=== PATIENT | female | born 1970 | race Caucasian/White ===

== ENCOUNTER 2021-10-05 06:51 | Outpatient (REF) | payer OTHER, SELFPAY ==
[2021-10-05 06:56] LABS: MANUAL DIFF FLAG NO
[2021-10-05 07:29] LABS: Basophils Percent Auto 0.5 % (0-2); Eosinophils Absolute Auto 0.2 X10*3/uL (0.0-0.4); Eosinophils Percent Auto 2.5 % (0-4); Hematocrit 37.2 % (37.0-47.0); Hemoglobin 11.3 g/dl (12.0-16.0); Imm Gran Abs Auto 0.03 X10*3/uL (0.00-0.03); Imm Gran Pct Auto 0.4 % (0.0-0.4); Lymphocytes Absolute Auto 2.6 X10*3/uL (1.2-4.9); Mean Corpuscular HGB Conc 30.4 g/dl (31.0-35.0); Mean Corpuscular Hemoglobin 19.4 pg (27.0-33.0); Mean Platelet Volume 10.3 fL (9.4-12.3); Monocytes Absolute Auto 0.5 X10*3/uL (0.1-1.2); Monocytes Percent Auto 5.9 % (2-11); Neutrophils Absolute Auto 4.6 x10*3/uL (2.0-8.3); Neutrophils Percent Auto 57.7 % (45-73); Platelet Count 271 X10*3/uL (160-400); Red Blood Count 5.81 X10*6/uL (4.20-5.50); Red Cell Distribution Width 16.1 % (11.0-16.0); White Blood Count 7.9 X10*3/uL (4.8-10.8)
[2021-10-05 07:38] LABS: Alanine Aminotransferase 22 U/L (0-31); Alkaline Phosphatase 73 U/L (39-117); Anion Gap 13 (12-20); Aspartate Amino Transferase 16 U/L (5-31); Bilirubin Total 0.6 mg/dL (0.0-1.0); Blood Urea Nitrogen 19 mg/dL (9-16); Carbon Dioxide 25 mmol/L (22-29); Chloride 105 mmol/L (96-108); Estimated Glomerular Filt Rate > 60; Glucose Random 99 mg/dL (60-115); Sodium 139 mmol/L (135-145); Total Protein 6.4 g/dL (6.5-8.0)
[2021-10-05 08:02] LABS: Free T4 (Free Thyroxine) 0.87 ng/dL (0.71-1.85); Thyroid Stimulating Hormone 0.98 uIU/mL (0.32-4.0)
== END 2021-10-05 06:52 | disposition home or self-care (01) ==
LOC: HO.MMNH1L 06:51
PROVIDERS: Visit Provider Family Medicine
DX: I63.9 Cerebral infarction, unspecified (principal)
CPT/HCPCS: 36415; 80053; 84439; 84443; 85025

== ENCOUNTER → 2022-11-02 15:19 | Outpatient (BNVA) | payer OTHER, SELFPAY | PROVIDERS: Visit Provider Physician Assistant ==

== ENCOUNTER 2022-12-03 10:34 | Outpatient (REF) | payer OTHER, SELFPAY ==
--- NOTE | ~2022-12-03 | XR_ITS ---
EXAMINATION: XR CHEST CLINICAL INFORMATION: Preprocedure. COMPARISON: None available. TECHNIQUE: 2 views of the chest were obtained. FINDINGS: No significant abnormality is noted involving the heart, lungs, mediastinum, bony thorax or soft tissues. XR/XR chest 2V IMPRESSION: No acute disease.
--- NOTE | 2022-12-03 12:31 | ECG_ITS ---
Test Reason : PREOP Blood Pressure : / mmHG Vent. Rate : 092 BPM Atrial Rate : 092 BPM P-R Int : 142 ms QRS Dur : 074 ms QT Int : 358 ms P-R-T Axes : 055 006 043 degrees QTc Int : 442 ms Normal sinus rhythm Normal ECG No previous ECGs available Referred By: Maribel Wakefield Electronically Signed By:ELEAZAR THOMSON
[2022-12-03 12:39] LABS: MANUAL DIFF FLAG NO
[2022-12-03 13:19] LABS: Basophils Absolute Auto 0.1 X10*3/uL (0.0-0.2); Basophils Percent Auto 0.9 % (0-2); Eosinophils Absolute Auto 0.3 X10*3/uL (0.0-0.4); Eosinophils Percent Auto 3.3 % (0-4); Hematocrit 39.2 % (37.0-47.0); Hemoglobin 11.6 g/dl (12.0-16.0); Imm Gran Abs Auto 0.04 X10*3/uL (0.00-0.03); Imm Gran Pct Auto 0.5 % (0.0-0.4); Lymphocytes Absolute Auto 2.2 X10*3/uL (1.2-4.9); Lymphocytes Percent Auto 26.7 % (20-40); Mean Corpuscular HGB Conc 29.6 g/dl (31.0-35.0); Mean Platelet Volume 9.8 fL (9.4-12.3); Monocytes Absolute Auto 0.4 X10*3/uL (0.1-1.2); Monocytes Percent Auto 5.4 % (2-11); Neutrophils Absolute Auto 5.2 x10*3/uL (2.0-8.3); Neutrophils Percent Auto 63.2 % (45-73); Platelet Count 296 X10*3/uL (160-400); Red Blood Count 6.12 X10*6/uL (4.20-5.50); Red Cell Distribution Width 17.4 % (11.0-16.0); White Blood Count 8.2 X10*3/uL (4.8-10.8)
[2022-12-03 13:23] LABS: Mean Corpuscular Volume 64.1 fL (80.0-98.0)
[2022-12-03 13:27] LABS: Estimated Average Glucose 123 mg/dL; Hemoglobin A1c % 5.9 %
[2022-12-03 14:33] LABS: Alanine Aminotransferase 17 U/L (0-31); Albumin Level 4.3 g/dL (3.5-5.0); Alkaline Phosphatase 91 U/L (39-117); Anion Gap 16 (12-20); Aspartate Amino Transferase 18 U/L (5-31); Blood Urea Nitrogen 16 mg/dL (9-16); C Reactive Protein 1.26 mg/dL (< or = 0.50); Calcium 9.4 mg/dL (8.4-10.2); Carbon Dioxide 23 mmol/L (22-29); Chloride 105 mmol/L (96-108); Cholesterol 178 mg/dL; Estimated Glomerular Filt Rate > 60; Glucose Random 103 mg/dL (60-115); HDL Cholesterol 37 mg/dL; Iron 83 mcg/dL (30-160); LDL Cholesterol Calculated 102 mg/dl; Percent Iron Saturation 27 % (15-50); Sodium 140 mmol/L (135-145); Total Iron Binding Capacity 307 mcg/dL (228-428); Total Protein 7.5 g/dL (6.5-8.0); Triglycerides 196 mg/dL; Unsaturated Iron Binding 224 ug/dL
[2022-12-03 14:56] LABS: Folate 10.5 ng/mL (> or = 4.0); Vitamin B12 657 pg/mL (200-900)
[2022-12-03 15:02] LABS: Ferritin 97 ng/mL (10-250); TSH reflex Free T4 1.04 uIU/mL (0.32-4.0); Vitamin D 25-OH Total 17.4 ng/mL (>30)
[2022-12-03 15:44] LABS: Insulin 22 uU/mL (2-29)
[2022-12-05 14:18] LABS: PTHI 247 pg/mL (16-77)
[2022-12-06 06:17] LABS: Zinc 86 mcg/dL (60-130)
[2022-12-08 17:49] LABS: Vitamin A 49 mcg/dL (38-98)
[2022-12-09 12:02] LABS: Vitamin B1 11 nmol/L (8-30)
== END 2022-12-03 10:35 | disposition home or self-care (01) ==
LOC: HO.LAB 10:34
PROVIDERS: Visit Provider Physician Assistant
DX: Z01.818 Encounter for other preprocedural examination (principal); E66.01 Morbid (severe) obesity due to excess calories; Z68.43 Body mass index [BMI] 50.0-59.9, adult; F44.4 Conversion disorder with motor symptom or deficit; G43.409 Hemiplegic migraine, not intractable, without status migrainosus; I63.9 Cerebral infarction, unspecified
CPT/HCPCS: 36415; 71046; 80053; 80061; 82306; 82607; 82728; 82746; 83036; 83525; 83540; 83970; 84425; 84443; 84590; 84630; 85025; 86140; 93005; 99202

== ENCOUNTER 2022-12-25 10:18 | Outpatient (AMB) | payer OTHER, SELFPAY ==
--- NOTE | 2022-12-25 09:58 | MHC.OFFVISWM ---
Intake VS Expanded 12/25/22 10:05 Height 5 ft 3 in Weight 290 lb BMI 51.4 Intake Visit Reasons: VIDEO F/U SWL Allergies No Known Allergies Allergy (Verified 12/03/22 10:44) HPI HPI Comments History of Present Illness Details This is the patients second appt for SWL. Starting weight was 293.1 lbs on 12/03/22. TBWL is 3.1 lbs. Will be in [place] for 4 weeks, returns on January 31. Meal plan: started last week stopped coffee, soda and all carbonated drinks 9am - Whey shake with almond milk 12pm - shake 3pm - Atkins bar or cc or yogurt 6pm - has food scale and measuring chicken and vegetables Exercise plan: LS 1 mile videos every day. Ready to increase to 2 miles Pre op work up completed as follows: SWL classes - , unable to log in appts - Lazara 01/01 appts - 01/04 H pylori - not yet, will schedule fro after her vacation no time to stop PPI now. Labs - mild anemia, vit D defic, PTH elevated CXR and ECG - both normal ULS and UGI - Feb 27 [facility] Surgical History History of bunionectomy Hx of breast reduction, elective Family History Mother Heart attack Father No problems noted. Sister Hypertension Brother No problems noted. Brother No problems noted. Daughter No problems noted. Son No problems noted. Social History Alcohol intake: current Alcohol intake frequency: holidays/special occasions only Patient Tobacco Use Status: Never used Tobacco Assessment & Plan Assessment & Plan (1) Morbid obesity: Code(s): E66.01 - Morbid (severe) obesity due to excess calories Plan: Pt started meal and exercise program last week and has lost 3 lbs so far. Did not make any changes to meal plan. Exercise - now alternate 2 mile with 1 mile LS videos - go to 2 miles daily when able. Will schedule H pylori for late January once she retunrs from vacation and has time to stop PPI. Getting help today with SWL classes. Next appt with me after January 31. Patient is still morbidly obese and is not considered stable at this time. I spent 30 minutes in total speaking with the patient via video conference counseling , reviewing records and charting in patients chart. . (2) GERD (gastroesophageal reflux disease): Code(s): K21.9 - Gastro-esophageal reflux disease without esophagitis (3) CVA (cerebral vascular accident): Code(s): I63.9 - Cerebral infarction, unspecified (4) JOSE on CPAP: Code(s): G47.33 - Obstructive sleep apnea (adult) (pediatric) Telehealth Telehealth Location of provider rendering services: practice address Location of patient: address on file Patient Identification confirmed using: Name, : Yes Telehealth method: video Patient verbally consented to treatment: Yes Patient verbally consented to billing insurance company: Yes Patient informed of any privacy concerns related to visit: Yes Coding Level of Care Code Tele Est Pt Level 4 (40164) Diagnoses Morbid obesity E66.01 GERD (gastroesophageal reflux disease) K21.9 CVA (cerebral vascular accident) I63.9 JOSE on CPAP G47.33
[2022-12-25 10:05] VITALS: BMI 51.4
== END 2022-12-25 10:21 | disposition home or self-care (01) ==
LOC: HO.HBS 10:18
PROVIDERS: Visit Provider Physician Assistant
DX: E66.01 Morbid (severe) obesity due to excess calories (principal); Z68.43 Body mass index [BMI] 50.0-59.9, adult; K21.9 Gastro-esophageal reflux disease without esophagitis; I63.9 Cerebral infarction, unspecified; G47.33 Obstructive sleep apnea (adult) (pediatric)
CPT/HCPCS: 99214

== ENCOUNTER → 2022-12-25 10:18 | Outpatient (BNVA) | payer SELFPAY | PROVIDERS: Visit Provider Physician Assistant ==

== ENCOUNTER 2023-01-01 13:30 | Outpatient (AMB) | payer OTHER, SELFPAY ==
--- NOTE | 2023-01-01 13:43 | MHC.WMTHER ---
Intake Intake Visit Reasons: VIDEO BH Intake Allergies No Known Allergies Allergy (Verified 12/03/22 10:44) [facility] Surgical History History of bunionectomy Hx of breast reduction, elective Family History Mother Heart attack Father No problems noted. Sister Hypertension Brother No problems noted. Brother No problems noted. Daughter No problems noted. Son No problems noted. Social History Alcohol intake: current Alcohol intake frequency: holidays/special occasions only Patient Tobacco Use Status: Never used Tobacco Behavioral Health Assessment Weight Management Therapy Therapy Notes Details Pt is looking to have weight loss surgery to help improve her health and quality of life. Pt stated that she had a massive stroke two years and went from 128lbs to 300lbs while in rehab for 1.5 years. Patient stated that she has had numerous losses resulting in depression. She denied ever being in therapy. Presenting Concerns Referral Source provider Reason for referral weight loss surgery evaluation Precipitating Event obesity Living Situation Current Living Situation Own At risk of losing current housing? No Satisfied with current living situation? Yes Comments Pt lives with her , her 23 year old son, and her 3 year old granddaughter. Food/Weight/Diet Expectations of change weight loss and maintenance History/Relationship with food Due to not being able to walk after her stroke and then her son , she started to turn to food to comfort herself. History/Relationship with weight Pt stated that she had a massive stroke two years and went from 128lbs to 300lbs while in rehab for 1.5 years. She denied any previous weight issues. Social History Family history and relationship Pt stated that her parents when she was young, she took care of her terminally ill sister for 12 years and her brother when he was 23. She also has a nephew she raised as her son who a few days after coming home from the one year ago in an accident. 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 none Education Highest grade completed college Preferred learning style Auditory, Verbal, Written, Learn by doing and Visual Currently enrolled in educational program? No Interested in further educational program? 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 No Financial Situation Describe current financial situation Comfortable Financial assistance? None Service Service? No Medications Is the patient compliant with medications? Yes Does the patient have Irvin Guardian in place? Not applicable Does the patient use complimentary health approaches? No Questionnaires PHQ-9 Over the last 2 weeks, how often have you been bothered by any of the following problems? 1. Little interest or pleasure in doing things: several days 2. Feeling down, depressed, or hopeless: several days 3. Trouble falling or staying asleep, or sleeping too much: nearly every day 4. Feeling tired or having little energy: nearly every day 5. Poor appetite or overeating: more than half the days 6. Feeling bad about yourself - or that you are a failure or have let yourself or your family down: not at all 7. Trouble concentrating on things, such as reading the newspaper or watching television: several days 8. Moving or speaking so slowly that other people could have noticed. Or the opposite - being so fidgety or restless that you have been moving around a lot more than usual: several days 9. Thoughts that you would be better off or of hurting yourself in some way: nearly every day Total score: 15 Source: Developed by Drs. Favian Gee, Gisele Headley, Daron Raymond and colleagues, with an educational slim from [employer]. Binge Eating Scale Group 1 A. I don't feel self-conscious about my wt. or body size when I'm with others. B. I feel concerned about how I look to others, but it normally does not make me fell disappointed with myself C. I do get self-conscious about my appearance and wt. which makes me feel disappointed in myself. D. I feel very self-conscious about my wt. and frequently I feel intense shame and disgust for myself. I try to avoid social contacts because of my self-consciousness. Response Group 1: C Group 2 A. I don't have any difficulty eating slowly in the proper manner. B. Although I seem to gobble down foods, I don't end up feeling stuffed because of eating to much. C. At times, I tend to eat quickly and then, I feel uncomfortably full afterwards. D. I have the habit of bolting down my food, without really chewing it. When this happens I usually feel uncomfortably stuffed because I've eaten to much. Response Group 2: C Group 3 A. I feel capable to control my eating urges when I want to. B. I feel like I have failed to control my eating more than the average person. C. I feel utterly helpless when it comes to feeling in control of my eating urges. D. Because I feel so helpless about controlling my eating I have become very desperate about trying to get control. Response Group 3: B Group 4 A. I don't have the habit of eating when I'm bored. B. I sometimes eat when I'm bored, but often I'm able to get busy and get my mind off food. C. I have a regular habit of eating when I'm bored, but occasionally, I can use some other activity to get my mind off eating. D. I have a strong habit of eating when I'm bored. Nothing seems to help me breath the habit. Response Group 4: A Group 5 A. I'm usually physically hungry when I eat something. B. Occasionally, I eat something on impulse even though I really am not hungry. C. I have the regular habit of eating foods, that I might not really enjoy, to satisfy a hungry feeling even though physically, I don't need the food. D. Although I'm not physically hungry, I get a hungry feeling in my mouth that only seems to be satisfied when I eat a food, like sandwich, that fills my mouth. Sometimes, when I eat the food to satisfy my mouth hunger, I then spit the food out so I won't gain weight. Response Group 5: B Group 6 A. I don't feel any guilt or self-hate after I overeat. B. After I overeat, occasionally I feel guilt or self-hate. C. Almost all the time I experience strong guilt or self-hate after I overeat. Response Group 6: B Group 7 A. I don't lose total control of my eating when dieting even after periods when I overeat. B. Sometimes when I eat a forbidden food on a diet, I feel like I blew it and eat even more. C. Frequently, I have the habit of saying to myself, I've blown it now, why not go all the way, when I overeat on a diet. When that happens I eat more. D. I have a regular habit of starting a strict diets for myself but I break the diets by going on an eating binge. My life seems to be either a feast or famine. Response Group 7: B Group 8 A. I rarely eat so much food that I feel uncomfortably stuffed afterwards. B. Usually about once a month, I each such a quantity of food, I end up feeling very stuffed. C. I have regular periods during the month when I eat large amounts of food, either at mealtime or at snacks. D. I eat so much food that I regularly feel quite uncomfortable after eating and sometimes a bit nauseous. Response Group 8: A Group 9 A. My level of calorie intake does not go up very high or go down very low on a regular basis. B. Sometimes after I overeat, I will try to reduce my caloric intake to almost nothing to compensate for the excess calories I've eaten. C. I have a regular habit of overeating during the night. It seems that my routine is not to be hungry in the morning but overeat in the evening. D. In my adult years, I have had week-long periods where I practically starve myself. This follows periods when I overeat. It seems I live a life of either feast or famine. Response Group 9: B Group 10 A. I usually am able to stop eating when I want to. I know when enough is enough. B. Every so often, I experience a compulsion to eat which I can't seem to control. C. Frequently, I experience strong urges to eat which I seem unable to control, but at other times I can control my eating urges. D. I feel incapable of controlling urges to eat. I have a fear of not being able to stop eating voluntarily. Response Group 10: B Group 11 A. I don't have any problem stopping eating when I feel full. B. I usually can stop eating when I feel full but occasionally overeat leaving me feeling uncomfortably stuffed. C. I have a problem stopping eating once I start and usually I feel uncomfortably stuffed after I eat a meal. D. Because I have a problem not being able to stop eating when I want, I sometimes have to induce vomiting to relieve my stuffed feeling. Response Group 11: A Group 12 A. I seem to eat just as much when I'm with others, Family social gatherings as when I'm by myself. B. Sometimes, when I'm with other persons, I don't eat as much as I want to eat because I'm self-conscious about my eating. C. Frequently, I eat only a small amount of food when others are present, because I'm very embarrassed about my eating. D. I feel so ashamed about overeating that I pick times to overeat when I know no one will see me. I feel like a closet eater. Response Group 12: A Group 13 A. I eat three meals a day with only an occasional between meal snack. B. I eat 3 meals a day, but I also normally snack between meals. C. When I am snacking heavily, I get in the habit of skipping regular meals. D. There are regular periods when I seem to be continually eating, with no planned meals. Response Group 13: C Group 14 A. I don't think much about trying to control unwanted eating urges. B. At least some of the time, I feel my thoughts are pre-occupied with trying to control my eating urges. C. I feel that frequently I spend much time thinking about how much I ate or about trying not to eat anymore. D. It seems to me that most of my waking hours are pre-occupied by thoughts about eating or not eating. I feel like I'm constantly struggling not to eat. Response Group 14: C Group 15 A. I don't think about food a great deal. B. I have strong craving for food but they last only for brief periods of time. C. I have days when I can't seem to think about anything else but food. D. Most of my days seem to be pre-occupied with thoughts about food. I feel like I live to eat. Response Group 15: A Group 16 A. I usually know whether or not I'm physically hungry. I take the right portion of food to satisfy me. B. Occasionally, I feel uncertain about knowing whether or not I'm physically hungry. A these times it's hard to know how much food I should take to satisfy me. C. Even though I might know how many calories I should eat, I don't have any idea what is a normal amount of food for me. Response Group 16: C Binge Eating Score: 16 Score less than 17 Minimal Risk Score between 18-26 Moderate Risk Score between 27-46 High Risk Assessment & Plan Assessment & Plan (1) Adjustment disorder, unspecified: Code(s): F43.20 - Adjustment disorder, unspecified (2) Morbid obesity: Code(s): E66.01 - Morbid (severe) obesity due to excess calories Plan PHQ-9 not accurate. patient will complete again at next appt. Evaluation today was not completed and she will be seen again. Telehealth Telehealth Location of provider rendering services: other Location of patient: other Patient Identification confirmed using: Name, : Yes Telehealth method: video Patient verbally consented to treatment: Yes Patient verbally consented to billing insurance company: Yes Patient informed of any privacy concerns related to visit: Yes Minutes spent on Phone/Video with Pt.: 30 Coding Level of Care Code Tele Psy Diag Eval (28441) Diagnoses Adjustment disorder, unspecified F43.20 Morbid obesity E66.01 Time Spent (min) 30
== END 2023-01-01 14:21 | disposition home or self-care (01) ==
LOC: HO.HBST 14:03
PROVIDERS: Visit Provider Counselor Mental Health
DX: F43.20 Adjustment disorder, unspecified (principal); E66.01 Morbid (severe) obesity due to excess calories
CPT/HCPCS: 90791

== ENCOUNTER → 2023-01-01 13:30 | Outpatient (BNVA) | payer OTHER, SELFPAY | PROVIDERS: Visit Provider Counselor Mental Health ==

== ENCOUNTER 2023-02-20 13:00 | Outpatient (AMB) | payer OTHER, SELFPAY ==
--- NOTE | 2023-02-20 13:03 | MHC.OFFVISWM ---
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 She restarted her meal plan this week after her vacation. 7am - shake 12 pm - shake 3:30 pm - yogurt or cc 6-7 pm - steak or chicken with vegetables Exercise - LS 1 mile - no t a good routine yet Pre op work up completed as follows: SWL classes -? , unable to log in- will start now BH appts? - Lazara 01/01, needs to schedule next appt -- ? RD appts - 01/04, rescheduled to 03/12 H pylori - not yet, will schedule for after her vacation no time to stop PPI now. Never stopped PPI, will stop on 02/26 for h pylori on 03/12. Labs - mild anemia, vit D defic, PTH elevated CXR and ECG - both normal ULS and UGI - Mar 12 [facility] Surgical History History of bunionectomy Hx of breast reduction, elective Family History Mother Heart attack Father No problems noted. Sister Hypertension Brother No problems noted. Brother No problems noted. Daughter No problems noted. Son No problems noted. Social History Alcohol intake: current Alcohol intake frequency: holidays/special occasions only Patient Tobacco Use Status: Never used Tobacco Assessment & Plan Assessment & Plan (1) Morbid obesity: Code(s): E66.01 - Morbid (severe) obesity due to excess calories Plan: Pt had initial weight loss of 9 lbs and then none since then. Has restarted her meal plan now - no changes made. Will now start LS 1 mile videos 5d/ week and then increase to 2 miles. H pylori for 03/12 Will start SWL classes now and complete by 9/26 Will schedule follow up with Lazara cantu. All upcoming appts reviewed. Patient is still morbidly obese and is not considered stable at this time. I spent 26 minutes in total speaking with the patient via video conference counseling , reviewing records and charting in patients chart. . (2) CVA (cerebral vascular accident): Code(s): I63.9 - Cerebral infarction, unspecified (3) JOSE on CPAP: Code(s): G47.33 - Obstructive sleep apnea (adult) (pediatric) (4) GERD (gastroesophageal reflux disease): Code(s): K21.9 - Gastro-esophageal reflux disease without esophagitis Telehealth Telehealth Location of provider rendering services: practice address Location of patient: address on file Patient Identification confirmed using: Name, : Yes Telehealth method: video Patient verbally consented to treatment: Yes Patient verbally consented to billing insurance company: Yes Patient informed of any privacy concerns related to visit: Yes Coding Level of Care Code Tele Est Pt Level 4 (65191) Diagnoses Morbid obesity E66.01 CVA (cerebral vascular accident) I63.9 JOSE on CPAP G47.33 GERD (gastroesophageal reflux disease) K21.9
[2023-02-20 13:06] VITALS: BMI 50.0
== END 2023-02-20 13:23 | disposition home or self-care (01) ==
LOC: HO.HBS 13:21
PROVIDERS: Visit Provider Physician Assistant
DX: E66.01 Morbid (severe) obesity due to excess calories (principal); Z68.43 Body mass index [BMI] 50.0-59.9, adult; I63.9 Cerebral infarction, unspecified; G47.33 Obstructive sleep apnea (adult) (pediatric); K21.9 Gastro-esophageal reflux disease without esophagitis
CPT/HCPCS: 99213

== ENCOUNTER → 2023-02-20 13:00 | Outpatient (BNVA) | payer OTHER, SELFPAY | PROVIDERS: Visit Provider Physician Assistant ==

== ENCOUNTER 2023-03-12 15:40 | Outpatient (AMB) | payer OTHER, SELFPAY ==
--- NOTE | 2023-03-12 15:27 | MHC.AMNUTRGE ---
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 When she had the first episode of emesis, was drinking chocolate shakes , now is turned off by them by association. Patient missed her radiology appointment today, she has been in bed for several days. 8-9am shake 12pm shake 3pm protein bar or yogurt, cottage cheese dinner salad with chicken or red meat or fish recognizes her main barriers: skipping meals and lack of planning Exercise: none; due to stomach bug. prior to that was doing mile 1-[address] has [employer] fitness membership and is interested in getting a personal injury paralegal Previous weight loss methods attempted tried to eat only once per day for years and gained weight Dietary counseling reduction Who buys your food self Who prepares/cooks your food self Meal frequency regular: dinner (7-9pm ) and never: breakfast (coffee) and lunch Lifestyle Eating out 1-3 times/week Food frequency Fruit: never and Vegetables: never Diagnosis Nutrition problem #1 overweight/obesity As related to (etiology) #1 excess energy intake and physical inactivity As evidenced by (sign/symptom) #1 high BMI Monitoring/Goals Nutrition problem monitoring total energy intake, level of knowledge/skill, total PRO intake, total CHO intake and weight Outcome progress progressing Learning/Education Readiness to learn good Stages of change action Educational materials provided Yes Most Recent Diabetes Results: No Data to Display [facility] Surgical History History of bunionectomy Hx of breast reduction, elective Family History Mother Heart attack Father No problems noted. Sister Hypertension Brother No problems noted. Brother No problems noted. Daughter No problems noted. Son No problems noted. Social History Alcohol intake: current Alcohol intake frequency: holidays/special occasions only Patient Tobacco Use Status: Never used Tobacco Assessment & Plan Assessment & Plan (1) Morbid obesity: Code(s): E66.01 - Morbid (severe) obesity due to excess calories Patient Instructions: Did not make any changes to her nutrition plan today, congratulated her on her weight loss. Encouraged getting a gym membership and beginning with a personal injury paralegal. She will complete online classes. I sent educational information via email as well as contact numbers to reschedule some appointments, reminded of upcoming appointment in office with Maribel. Patient to follow-up with me 04/16 at 03:30 Telehealth Telehealth Location of provider rendering services: practice address Location of patient: address on file Patient Identification confirmed using: Name, : Yes Telehealth method: video Patient verbally consented to treatment: Yes Patient verbally consented to billing insurance company: Yes Patient informed of any privacy concerns related to visit: Yes Minutes spent on Phone/Video with Pt.: 25 Coding Level of Care Code Nutr Indiv Intake (71099) Diagnoses Morbid obesity E66.01 Time Spent (min) 25
[2023-03-12 15:36] VITALS: BMI 47.5
== END 2023-03-12 15:43 | disposition home or self-care (01) ==
LOC: HO.HBS 15:40
PROVIDERS: Visit Provider Dietitian, Registered
DX: E66.01 Morbid (severe) obesity due to excess calories (principal)

== ENCOUNTER → 2023-04-16 15:44 | Outpatient (BNVA) | payer OTHER, SELFPAY | PROVIDERS: Visit Provider Dietitian, Registered | DX: E66.9 Obesity, unspecified (principal) | CPT/HCPCS: 97803 ==

== ENCOUNTER 2023-04-17 16:29 | Outpatient (AMB) | payer OTHER, SELFPAY ==
--- NOTE | 2023-04-17 16:28 | A.OFFVIS_ITS ---
Intake Intake Visit Reasons: VIDEO F/U SWL Allergies No Known Allergies Allergy (Verified 12/03/22 10:44) HPI HPI Comments History of Present Illness Details 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 Meal plan 6:45 am - 7:30 - protein shake 12:30 - shake 3 pm - often misses this MR 5 - 6pm - 8 oz protein and 8 oz vegetab le. Some day s skips dinner and a third shake. Exercise - 2-3 d/week. bike (? calories) and treadmill - speed 3.0, incline 1 - 30 - 40 minutes Pre op work up completed as follows: [facility] classes -? 01/22, appts? - Lazara 01/01, needs to schedule next appt -- ? RD appts - 01/04, rescheduled to 03/12, cleared H pylori - not yet, will schedule for after her vacation no time to stop PPI now. Never stopped PPI, will stop on 02/26 for h pylori on 03/12- now rescheduled to 04/22 Labs - mild anemia, vit D defic, PTH elevated CXR and ECG - both normal ULS and UGI - 05/15 and 2023 [facility] Surgical History History of bunionectomy Hx of breast reduction, elective Family History Mother Heart attack Father No problems noted. Sister Hypertension Brother No problems noted. Brother No problems noted. Daughter No problems noted. Son No problems noted. Social History Alcohol intake: current Alcohol intake frequency: holidays/special occasions only Patient Tobacco Use Status: Never used Tobacco Assessment & Plan Assessment & Plan (1) Morbid obesity: Code(s): E66.01 - Morbid (severe) obesity due to excess calories Plan: Pt does not have a weight today- will text me her weight. I will make changes to her meal and exercise plans once I know her weight. Is not interested in bariatric surgery until next calendar year. Exercise - treadmill speed 3.0 - , incline 1 -5 for 300 calories (10cal/minute) and bike for 100 caloreis - at lest 4 d/week. All up coming appts reviewed - will schedule follow up with Lazara cantu. Next appt 3 weeks with me. Encouraged weekly weight texts. Patient is still morbidly obese and is not considered stable at this time. I spent 30 minutes in total speaking with the patient via video conference counseling , reviewing records and charting in patients chart. . (2) CVA (cerebral vascular accident): Code(s): I63.9 - Cerebral infarction, unspecified (3) JOSE on CPAP: Code(s): G47.33 - Obstructive sleep apnea (adult) (pediatric) Telehealth Telehealth Location of provider rendering services: practice address Location of patient: address on file Patient Identification confirmed using: Name, : Yes Telehealth method: video Patient verbally consented to treatment: Yes Patient verbally consented to billing insurance company: Yes Patient informed of any privacy concerns related to visit: Yes Coding Level of Care Code Tele Est Pt Level 4 (86162) Diagnoses Morbid obesity E66.01 CVA (cerebral vascular accident) I63.9 JOSE on CPAP G47.33
== END 2023-04-17 17:05 | disposition home or self-care (01) ==
LOC: HO.HBS 16:29
PROVIDERS: Visit Provider Physician Assistant
DX: E66.01 Morbid (severe) obesity due to excess calories (principal); I63.9 Cerebral infarction, unspecified; G47.33 Obstructive sleep apnea (adult) (pediatric)
CPT/HCPCS: 99214

== ENCOUNTER → 2023-04-17 16:29 | Outpatient (BNVA) | payer OTHER, SELFPAY | PROVIDERS: Visit Provider Physician Assistant ==

== ENCOUNTER 2023-05-06 14:14 | Outpatient (AMB) | payer OTHER, SELFPAY ==
--- NOTE | 2023-05-06 14:41 | A.OFFVIS_ITS ---
Intake Vital Signs 05/06/23 14:42 Height 5 ft 3 in Weight 267 lb BMI 47.3 BP 128/76 Blood Pressure Location Rt brachial Position Sitting Respiration 16 Pulse 96 Pulse Source Pulse Oximeter Pulse Oximetry (%) 94 Oxygen Delivery Method Room Air Intake Visit Reasons: I-BULKER: Cerebral Infarction/Conversion disorder . . Intake Note: Pt presents for new pt evaluation s/p stroke in 2020 as well as hemiplegic migraines. She reports she gets these migraines about 5 times per year. The last time she had one was in January. Looper Fixer Required: No Allergies No Known Allergies Allergy (Verified 05/06/23 14:42) Medication List - Last Reconciled 05/06/23 by Sanna Yanes MD amitriptyline 75 mg PO BEDTIME cholecalciferol (vitamin D3) 50 mcg PO DAILY CPAP (CPAP Machine/Device) As directed divalproex (Depakote) 750 mg PO ONCE lorazepam 0.5 mg PO BEDTIME PRN pantoprazole 40 mg PO DAILY PRN ropinirole ER 2 mg PO BEDTIME sumatriptan succinate 50 mg PO Q2-4H PRN HPI HPI Comments History of Present Illness Details 52Y/O female comes for neurological eval uation. she was seeing Dr.Melch sherwood for hemiplegic migraines, CVA in 2020. she was also seen at [facility] for abnormal gait following her CVA . Her migraines are well controlled with depakote ER 750mg qam , amitripltyline 75mg qhs , sumatriptan as needed for regular migraines. she has hemiplegic migraines - 4-5times a year. she has weakness left side with drooling - usually goes to ER. when she had her stroke - she started with migraine and while she was in the hospitals he had CVA and was treated with TPA, was admitted in ICU and was in rehab . she has mild left hemiparesis, when she is tired she has some speech issues gait issues and weakness. Her regular migraines are 7-8/month and takes lorazepam and goes to bed. she was diagnosed with JOSE in 2020 when she had stroke.s he has a CPAP - but does not us eith consistently due to claustrophobia. [facility], [facility] Surgical History History of carpal tunnel surgery Hx of breast reduction, elective History of bunionectomy Family History Mother Heart attack Father No problems noted. Sister Hypertension Brother No problems noted. Brother No problems noted. Daughter No problems noted. Son No problems noted. Social History Household Members: Spouse and Family Housing: House Alcohol intake: current Alcohol intake frequency: holidays/special occasions only Patient Tobacco Use Status: Never used Tobacco Review of Systems Const Reports fatigue and Reports weight gain ENT Reports dizziness Musc Reports arthralgias Neuro Reports dizziness and Reports memory loss Psych Denies anxiety, Reports depression and Reports memory loss Endo Reports fatigue Physical Exam Vital Signs: Last Vital Signs Pulse 96 05/06/23 14:42 Resp 16 05/06/23 14:42 BP 128/76 05/06/23 14:42 Pulse Ox 94 05/06/23 14:42 Oxygen Delivery Method Room Air 05/06/23 14:42 BMI result Body Mass Index 47.3 Const General: cooperative and comfortable Nutritional Appearance: obese Orientation/consciousness: patient oriented x3 Eyes Pupils: Equal, round and reactive pupils present Neuro Other: mallampatti grade 4 left facial weakness Hoarse voice General: patient oriented x3, tone normal, moves all extremities and no focal motor deficits Cranial nerves: Yes Facial sensation intact/muscles of mastication intact, Yes Equal, round and reactive pupils present, Yes Bilaterally intact EOM present, Yes Nystagmus not present and Yes Midline tongue present Cognition (Neuro): normal cognition Gait exam (Neuro): Normal gait present Motor exam (neuro): 5/5 motor strength present throughout Deep tendon reflexes (DTR's): Right triceps reflex intensity grade: 1+, Left triceps reflex intensity grade: 1+, Rt Biceps (C5, C6): 1+, Left biceps reflex intensity grade: 1+, Right brachioradialis reflex intensity grade: 1+, Left brachioradialis reflex intensity grade: 1+, Right patellar reflex intensity grade: 1+ and Left patellar reflex intensity grade: 1+ Coordination: [id number] test normal Assessment & Plan Assessment & Plan (1) Hemiplegic migraine: Comment: unclear if she had a genetic test Code(s): G43.409 - Hemiplegic migraine, not intractable, without status migrainosus (2) JOSE on CPAP: Code(s): G47.33 - Obstructive sleep apnea (adult) (pediatric) (3) CVA (cerebral vascular accident): Code(s): I63.9 - Cerebral infarction, unspecified Plan Sleep study and MRI, neuro, lab reports from PCP Start aspirin 81mg qd will check her labs for LDL levels and consider starting a statin STOP SUMATRIPTAN as it can worsen hemiplegic migraine Suggested excedrin migraine continue amitriptyline 75mg qhs and depakote ER 750mg qam Continue CPAP_ [facility] -will send pres for new mask with [facility] Medications: New aspirin (Adult Aspirin Regimen) 81 mg PO DAILY 30 tabs 8RF Coding Level of Care Code New Pt Level 4 (56879) Diagnoses Hemiplegic migraine G43.409 JOSE on CPAP G47.33 CVA (cerebral vascular accident) I63.9
[2023-05-06 14:42] VITALS: BP 128/76; PULSE 96; RESP 16; O2SAT 94; BMI 47.3
== END 2023-05-06 15:24 | disposition home or self-care (01) ==
PROVIDERS: Visit Provider Psychiatry & Neurology Neurology
DX: I69.354 Hemiplegia and hemiparesis following cerebral infarction affecting left non-dominant side (principal); G43.409 Hemiplegic migraine, not intractable, without status migrainosus; G47.33 Obstructive sleep apnea (adult) (pediatric)
CPT/HCPCS: 99204

== ENCOUNTER → 2023-05-06 14:14 | Outpatient (BNVA) | payer OTHER, SELFPAY | PROVIDERS: Visit Provider Psychiatry & Neurology Neurology | DX: G43.409 Hemiplegic migraine, not intractable, without status migrainosus (principal); I69.398 Other sequelae of cerebral infarction; I69.354 Hemiplegia and hemiparesis following cerebral infarction affecting left non-dominant side; R26.89 Other abnormalities of gait and mobility; E66.9 Obesity, unspecified; G47.33 Obstructive sleep apnea (adult) (pediatric); Z68.42 Body mass index [BMI] 45.0-49.9, adult; Z99.89 Dependence on other enabling machines and devices; Z79.899 Other long term (current) drug therapy | CPT/HCPCS: 99202 ==

== ENCOUNTER 2023-06-06 15:30 | Outpatient (AMB) | payer OTHER, SELFPAY ==
--- NOTE | 2023-06-06 13:50 | MHC.OFFVISWM ---
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 Sent me text earlier in the week with weight of 261.0 lbs. TBWL 32.2 or 11%. Was not well for 2 weeks - went off meal and exercise during that time - gained 2.5 lbs. Meal plan: 6:30am - Whey shake 30 grams with water 12:30 - same shake 3:30 pm - maltese yogurt 6:30 pm - 12 forks vegetables and 12 forks fish or chicken Exercise - gym 3-4 d/ week - treadmill speed 5.0, incline 1 - 4, martinez 410 calories - 35 minutes. Pre op work up completed as follows: [facility] classes -? 01/22, appts? - [facility] 01/01, needs to schedule next appt -- ?has still not had follow up RD appts - 01/04, rescheduled to 03/12, cleared H pylori - not yet, Never stopped PPI, will stop on 02/26 for h pylori on 03/12- now rescheduled to 04/22 - not done Labs - mild anemia, vit D defic, PTH elevated CXR and ECG - both normal ULS - missed appt on 05/15 UGI - 2023 [facility] Surgical History History of carpal tunnel surgery Hx of breast reduction, elective History of bunionectomy Family History Mother Heart attack Father No problems noted. Sister Hypertension Brother No problems noted. Brother No problems noted. Daughter No problems noted. Son No problems noted. Social History Household Members: Spouse and Family Housing: House Alcohol intake: current Alcohol intake frequency: holidays/special occasions only Comment: occasional Patient Tobacco Use Status: Never used Tobacco Assessment & Plan Assessment & Plan (1) Morbid obesity: Code(s): E66.01 - Morbid (severe) obesity due to excess calories Plan: Pt has had excellent progress but still needs to complete some of her pre op work up. Meal plan - only change is switch bar for yogurt in mid afternoon. Exercise - Must do at least 4 d/week - altrenate her present work out with speed of 3.0 - inclien 1-7 for same amount of calories burned. H pylori tomorrow. Appt made for followup with Lazara Pt will reschedule her ULS. Continue to send me weekly weights and will have next appt with me in 3 weeks. Patient is still morbidly obese and is not considered stable at this time. I spent 30 minutes in total speaking with the patient via video conference counseling , reviewing records and charting in patients chart. . (2) CVA (cerebral vascular accident): Code(s): I63.9 - Cerebral infarction, unspecified Plan: no changes (3) JOSE on CPAP: Code(s): G47.33 - Obstructive sleep apnea (adult) (pediatric) Plan: continue CPAP (4) GERD (gastroesophageal reflux disease): Code(s): K21.9 - Gastro-esophageal reflux disease without esophagitis Plan: h pylori tomorrow Telehealth Telehealth Location of provider rendering services: practice address Location of patient: address on file Patient Identification confirmed using: Name, : Yes Telehealth method: video Patient verbally consented to treatment: Yes Patient verbally consented to billing insurance company: Yes Patient informed of any privacy concerns related to visit: Yes Coding Level of Care Code Tele Est Pt Level 4 (82480) Diagnoses Morbid obesity E66.01 CVA (cerebral vascular accident) I63.9 JOSE on CPAP G47.33 GERD (gastroesophageal reflux disease) K21.9
[2023-06-06 15:42] VITALS: BMI 46.1
== END 2023-06-06 15:56 | disposition home or self-care (01) ==
LOC: HO.HBS 15:38
PROVIDERS: Visit Provider Physician Assistant
DX: E66.01 Morbid (severe) obesity due to excess calories (principal); I63.9 Cerebral infarction, unspecified; G47.33 Obstructive sleep apnea (adult) (pediatric); K21.9 Gastro-esophageal reflux disease without esophagitis
CPT/HCPCS: 99214

== ENCOUNTER → 2023-06-06 15:30 | Outpatient (BNVA) | payer OTHER, SELFPAY | PROVIDERS: Visit Provider Physician Assistant ==

== ENCOUNTER → 2023-06-07 07:52 | Outpatient (BNVA) | payer OTHER, SELFPAY | PROVIDERS: Visit Provider Physician Assistant | DX: Z11.0 Encounter for screening for intestinal infectious diseases (principal) | CPT/HCPCS: 99211 ==

== ENCOUNTER 2023-06-07 15:21 | Outpatient (REF) | payer OTHER, SELFPAY ==
[2023-06-13 11:46] LABS: H Pylori Breath Test Negative (Negative)
== END 2023-06-07 15:22 | disposition home or self-care (01) ==
LOC: HO.LNP 15:21
PROVIDERS: Visit Provider Physician Assistant
DX: Z01.818 Encounter for other preprocedural examination (principal); E66.01 Morbid (severe) obesity due to excess calories; I63.9 Cerebral infarction, unspecified; G43.409 Hemiplegic migraine, not intractable, without status migrainosus; F44.4 Conversion disorder with motor symptom or deficit
CPT/HCPCS: 83013

== ENCOUNTER 2023-06-24 16:08 | Outpatient (AMB) | payer OTHER, SELFPAY ==
--- NOTE | 2023-06-24 13:08 | MHC.OFFVISWM ---
Intake VS Expanded 06/24/23 16:04 Height 5 ft 3 in Weight 252 lb BMI 44.6 Intake Visit Reasons: TV F/U SWL Allergies No Known Allergies Allergy (Verified 05/06/23 14:42) Medication List - Last Reconciled 06/24/23 by Maribel Wakefield PA-C amitriptyline 75 mg PO BEDTIME aspirin (Adult Aspirin Regimen) 81 mg PO DAILY cholecalciferol (vitamin D3) 50 mcg PO DAILY CPAP (CPAP Machine/Device) As directed divalproex (Depakote) 750 mg PO ONCE lorazepam 0.5 mg PO BEDTIME PRN pantoprazole 40 mg PO DAILY PRN ropinirole ER 2 mg PO BEDTIME sumatriptan succinate 50 mg PO Q2-4H PRN HPI HPI Comments History of Present Illness Details [facility] followup, [employer] weight of 293.2 lbs, TBWL is 41.2 lbs or 14%. Now sleeping much better. Would like to schedule her surgery the week of Aug 05 - . Meal plan 7am - Whey powder mixed with water - over 45 minutes 12:30 - same shake 3pm - skips this MR 6 pm - 12 forks each protein and vegetables 4d/week - treadmill - speed 3.0,incline 1-6 - 350 - 400 calories (35 minutes). Then bikes x 20 minutes casually. = total 500 calories Pre op work up completed as follows: [facility] classes -? 01/22, appts? - Lazara 01/01, next appt -- 06/25/23 appts - 01/04, rescheduled to 03/12, cleared H pylori - Never stopped PPI, will stop on 02/26 for h pylori on 03/12- now rescheduled to 04/22 - done 06/07 - Negative Labs - mild anemia, vit D defic, PTH elevated CXR and ECG - both normal ULS - missed appt on 05/15, now 07/18/23 UGI - 2023 [facility] Surgical History History of carpal tunnel surgery Hx of breast reduction, elective History of bunionectomy Family History Mother Heart attack Father No problems noted. Sister Hypertension Brother No problems noted. Brother No problems noted. Daughter No problems noted. Son No problems noted. Social History Household Members: Spouse and Family Housing: House Alcohol intake: current Alcohol intake frequency: holidays/special occasions only Comment: occasional Patient Tobacco Use Status: Never used Tobacco Assessment & Plan Assessment & Plan (1) Morbid obesity: Code(s): E66.01 - Morbid (severe) obesity due to excess calories Plan: Pt has 14% TBWL but still needs her UGI and ULS completed, they were rescheduled due to illness. All appt dates reviewed with her. She will continue her meal plan. Increase her exercise to make sure she martinez at least 500 calories 4 d/ week. Will have appt with me after UGI - if all well will schedule with Dr Rhonda proctor in July so that we can schedule her surgery during her July break. Patient is still morbidly obese and is not considered stable at this time. I spent 20 minutes in total speaking with the patient via video conference counseling , reviewing records and charting in patients chart. . Telehealth Telehealth Location of provider rendering services: practice address Location of patient: address on file Patient Identification confirmed using: Name, : Yes Telehealth method: video Patient verbally consented to treatment: Yes Patient verbally consented to billing insurance company: Yes Patient informed of any privacy concerns related to visit: Yes Coding Level of Care Code Tele Est Pt Level 3 (64090) Diagnoses Morbid obesity E66.01
[2023-06-24 16:04] VITALS: BMI 44.6
== END 2023-06-24 16:21 | disposition home or self-care (01) ==
LOC: HO.HBS 16:08
PROVIDERS: Visit Provider Physician Assistant
DX: E66.01 Morbid (severe) obesity due to excess calories (principal)
CPT/HCPCS: 99213

== ENCOUNTER → 2023-06-24 16:08 | Outpatient (BNVA) | payer OTHER, SELFPAY | PROVIDERS: Visit Provider Physician Assistant ==

== ENCOUNTER 2023-06-25 15:56 | Outpatient (AMB) | payer OTHER, SELFPAY ==
--- NOTE | 2023-06-25 15:36 | MHC.WMTHER ---
Intake Intake Visit Reasons: VIDEO F/U SWL Allergies No Known Allergies Allergy (Verified 05/06/23 14:42) [facility] Surgical History History of carpal tunnel surgery Hx of breast reduction, elective History of bunionectomy Family History Mother Heart attack Father No problems noted. Sister Hypertension Brother No problems noted. Brother No problems noted. Daughter No problems noted. Son No problems noted. Social History Household Members: Spouse and Family Housing: House Alcohol intake: current Alcohol intake frequency: holidays/special occasions only Comment: occasional Patient Tobacco Use Status: Never used Tobacco Behavioral Health Assessment Weight Management Therapy Therapy Notes Details Patient reported that she has been doing very well, feels better from the 40lbs loss. No issues currently. Does have a history of depression due to tragic losses in her life. Pt is looking to have weight loss surgery to help improve her health and quality of life. Pt stated that she had a massive stroke two years and went from 128lbs to 300lbs while in rehab for 1.5 years. Patient stated that she has had numerous losses resulting in depression. She denied ever being in therapy. Presenting Concerns Referral Source provider Reason for referral weight loss surgery evaluation Precipitating Event obesity Living Situation Current Living Situation Own At risk of losing current housing? No Satisfied with current living situation? Yes Comments Pt lives with her , her 23 year old son, and her 3 year old granddaughter. Food/Weight/Diet Expectations of change weight loss and maintenance History/Relationship with food Due to not being able to walk after her stroke and then her son , she started to turn to food to comfort herself. History/Relationship with weight Pt stated that she had a massive stroke two years and went from 128lbs to 300lbs while in rehab for 1.5 years. She denied any previous weight issues. History/Relationship with dieting WW Binge Eating Do you frequently eat large amounts of food in short periods of time, not feeling physically hungry? No Do you feel out of control when you eat a large amount of food in a short period of time? No Do you eat large amounts of food rapidly and typically alone? No Night Eating Do you wake up at least once during the night to eat? No If you wake up in the night, do you find that it is necessary to eat something in order to fall back asleep? No Do you have little or no appetite in the morning and feel very hungry in the evening, often overeating between dinner and when you go to bed? No Social History Family history and relationship Pt stated that her parents when she was young, she took care of her terminally ill sister for 12 years and her brother when he was 23. She also has a nephew she raised as her son who a few days after coming home from the one year ago in an accident. Parental/Familial kinder teacher obligations none known Developmental history and status no issues reported Social support , adult children, best friend Legal Involvement and History Current or historical involvement with the legal system? none Education Highest grade completed college Preferred learning style Auditory, Verbal, Written, Learn by doing and Visual Currently enrolled in educational program? No Interested in further educational program? 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 No Meaningful activities spending time with her children and grandchildren. Financial Situation Describe current financial situation Comfortable Financial assistance? None Service Service? No Mental Health and Addiction Treatment Current/Past substance abuse? No Current/Past addictive behavior concerns? No Medical and Physical Health Summary Physical exam in the last year? Yes Pain Screening Current pain? Yes Pain in the last few months? Yes Medications Is the patient compliant with medications? Yes Does the patient have Irvin Guardian in place? Not applicable Does the patient use complimentary health approaches? No Trauma/Abuse History History of trauma? Yes Questionnaires PHQ-9 Over the last 2 weeks, how often have you been bothered by any of the following problems? 1. Little interest or pleasure in doing things: not at all 2. Feeling down, depressed, or hopeless: not at all 3. Trouble falling or staying asleep, or sleeping too much: not at all 4. Feeling tired or having little energy: several days 5. Poor appetite or overeating: not at all 6. Feeling bad about yourself - or that you are a failure or have let yourself or your family down: not at all 7. Trouble concentrating on things, such as reading the newspaper or watching television: not at all 8. Moving or speaking so slowly that other people could have noticed. Or the opposite - being so fidgety or restless that you have been moving around a lot more than usual: not at all 9. Thoughts that you would be better off or of hurting yourself in some way: not at all Total score: 1 Source: Developed by Drs. Favian Gee, Gisele Headley, Daron Raymond and colleagues, with an educational slim from [employer]. Assessment & Plan Assessment & Plan (1) History of depression: Code(s): Z86.59 - Personal history of other mental and behavioral disorders (2) Morbid obesity: Code(s): E66.01 - Morbid (severe) obesity due to excess calories Plan Patient has done well in the program. She has suffered many losses in recent years resulting in depression. Initial PHQ-9 was high and indicated suicide however patient stated that is not accurate and has never had these thoughts. Although she has a history of depression, currently she reports being well. 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 Patient is cleared for surgery when ready. She is appropriate for group support post surgery. Telehealth Telehealth Location of provider rendering services: other Location of patient: other Patient Identification confirmed using: Name, : Yes Telehealth method: voice only Patient verbally consented to treatment: Yes Patient verbally consented to billing insurance company: Yes Patient informed of any privacy concerns related to visit: Yes Minutes spent on Phone/Video with Pt.: 30 Coding Level of Care Code Tele Psytx 30 mins (37329) Diagnoses History of depression Z86.59 Morbid obesity E66.01 Time Spent (min) 30
== END 2023-06-25 17:00 ==
PROVIDERS: Visit Provider Counselor Mental Health
DX: Z86.59 Personal history of other mental and behavioral disorders (principal); E66.01 Morbid (severe) obesity due to excess calories
CPT/HCPCS: 90832

== ENCOUNTER → 2023-06-25 15:56 | Outpatient (BNVA) | payer OTHER, SELFPAY | PROVIDERS: Visit Provider Counselor Mental Health | DX: Z86.59 Personal history of other mental and behavioral disorders (principal); E66.01 Morbid (severe) obesity due to excess calories ==

== ENCOUNTER 2023-07-02 09:35 | Outpatient (REF) | payer OTHER, SELFPAY ==
--- NOTE | ~2023-07-02 | FL_ITS ---
EXAMINATION: XR FLUOROSCOPY UPPER GI WITH AIR CLINICAL INFORMATION: Preop evaluation prior to bariatric surgery COMPARISON: None TECHNIQUE: Fluoroscopic air contrast upper GI examination was performed utilizing standard techniques with thin and thick barium and effervescent granules. Numerous spot images were obtained. FINDINGS: Lateral cine images of the oropharynx and hypopharynx demonstrate normal swallow mechanism with normal epiglottic inversion and soft palate elevation. No tracheal penetration, glottic or subglottic aspiration identified. No nasopharyngeal reflux present. Hypopharyngeal structures appear normal without evidence of mass or diverticulum. There was no significant cricopharyngeal achalasia. Dual and single contrast images of the esophagus demonstrate normal caliber, contour, and mucosal pattern. No evidence of stricture, mass, or ulcerations identified. Esophageal peristalsis was normal and the primary phase, with mild nonpropulsive tertiary contractions. No evidence of hiatus hernia identified. No significant gastroesophageal reflux was seen during the course of the examination and on reflux views. Dual contrast and single contrast images of the stomach demonstrated normal contour and mucosal pattern without evidence of mass, ulceration, or other abnormality. Contrast freely passed into the gastric antrum and duodenal bulb without delay. Single and air-contrast images of the duodenal bulb demonstrate no abnormality. The duodenal sweep has a normal appearance, course, and mucosal fold appearance. The imaged proximal jejunum has a normal fold pattern and caliber. FLUOROSCOPY TIME: 3 minutes 4 seconds Number of Spot Images: 13 Number of Cine: 10 DOSE AREA PRODUCT: 2765 uGy-m2 (microgray-meter squared) FL/FL upper GI w air IMPRESSION: 1. Minimal esophageal dysmotility consisting of nonpropulsive mild tertiary contractions. 2. Otherwise, normal upper GI series This procedure was performed by Stephan Davis PA-C, and supervised by Dr. Lau
== END 2023-07-02 09:36 | disposition home or self-care (01) ==
LOC: HO.XRAY 09:35
PROVIDERS: Visit Provider Physician Assistant
DX: Z01.818 Encounter for other preprocedural examination (principal); E66.01 Morbid (severe) obesity due to excess calories; I63.9 Cerebral infarction, unspecified; G43.409 Hemiplegic migraine, not intractable, without status migrainosus; F44.4 Conversion disorder with motor symptom or deficit
CPT/HCPCS: 74246; 97802

== ENCOUNTER → 2023-07-02 09:37 | Outpatient (BNV) | payer OTHER, SELFPAY | PROVIDERS: Visit Provider Radiology Diagnostic Radiology | DX: Z01.818 Encounter for other preprocedural examination (principal) | CPT/HCPCS: 74246 ==

== ENCOUNTER 2023-07-08 14:30 | Outpatient (AMB) | payer OTHER, SELFPAY ==
--- NOTE | 2023-07-08 13:21 | MHC.OFFVISWM ---
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 Now sl eeping much better . Would like to sc hedule her surgery the week of Jul 18 - . Meal plan 7am - Whey powd er mixed with wate r - over 45 minute s 12:30 - same sha ke 5 pm - 12 forks each protein and vegetables 4d/we ek - treadmill - s peed 3.0,incline 1 -6 - also bikes of r 20 minutes. 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 SWL classes - ? 01/22, BH appts? - Laz[place] 01/01, nex t appt -- 06/25/23, cleared RD appts - 01/04, rescheduled to 03/12, cleared H pylori - Never s topped PPI, will s top on 02/26 for h pylori on 03/12- no w rescheduled to 06/22 - done 06/07 - Negative Labs - m ild anemia, vit D defic, PTH elevate d CXR and ECG - lorenza th normal ULS - mi ssed appt on 05/15 , now 07/18/23 UGI - teritary esophag eal contractions, otherwise normal PFSH Surgical History History of carpal tunnel surgery Hx of breast reduction, elective History of bunionectomy Family History Mother Heart attack Father No problems noted. Sister Hypertension Brother No problems noted. Brother No problems noted. Daughter No problems noted. Son No problems noted. Social History Household Members: Spouse and Family Housing: House Alcohol intake: current Alcohol intake frequency: holidays/special occasions only Comment: occasional Patient Tobacco Use Status: Never used Tobacco Assessment & Plan Assessment & Plan (1) Morbid obesity: Code(s): E66.01 - Morbid (severe) obesity due to excess calories Plan: Pt has done great with 46.2 lbs TBWL, 15.75%. Pre operative work up has been completed except for ULS on 07/18/23, she has a surgical consult scheduled with Dr Ellis on 07/22 and I will ask Beverley to start her authorization process because she is hoping to have surgery the week of Aug 05 during her break from school. (2) JOSE on CPAP: Code(s): G47.33 - Obstructive sleep apnea (adult) (pediatric) Plan: Not using anymore with her present weight loss. (3) CVA (cerebral vascular accident): Comment: August 2019 Code(s): I63.9 - Cerebral infarction, unspecified Plan: No need for anticoagulation Plan see above Telehealth Telehealth Location of provider rendering services: practice address Location of patient: address on file Patient Identification confirmed using: Name, : Yes Telehealth method: video Patient verbally consented to treatment: Yes Patient verbally consented to billing insurance company: Yes Patient informed of any privacy concerns related to visit: Yes Coding Level of Care Code Tele Est Pt Level 3 (25781) Diagnoses Morbid obesity E66.01 JOSE on CPAP G47.33 CVA (cerebral vascular accident) I63.9
== END 2023-07-08 14:45 | disposition home or self-care (01) ==
LOC: HO.HBS 14:34
PROVIDERS: Visit Provider Physician Assistant
DX: E66.01 Morbid (severe) obesity due to excess calories (principal); G47.33 Obstructive sleep apnea (adult) (pediatric); I63.9 Cerebral infarction, unspecified
CPT/HCPCS: 99213

== ENCOUNTER → 2023-07-08 14:30 | Outpatient (BNVA) | payer OTHER, SELFPAY | PROVIDERS: Visit Provider Physician Assistant ==

== ENCOUNTER 2023-07-18 08:04 | Outpatient (REF) | payer OTHER, SELFPAY ==
--- NOTE | ~2023-07-18 | US_ITS ---
EXAMINATION: US COMPLETE ABDOMEN WITH LIVER ELASTOGRAPHY CLINICAL INFORMATION: Obesity. COMPARISON: None available. TECHNIQUE: Real-time imaging of the abdominal viscera. Noninvasive ultrasound liver fibrosis assessment is performed using Russell ElastPQ point quantification shear wave elastography (2D-SWE) with a C5-2 MHz transducer. Multiple elastography samples are obtained. FINDINGS: PANCREAS: Limited. The visualized pancreatic head and body are normal in appearance. The remainder of the pancreas is obscured from visualization by the overlying bowel gas. ABDOMINAL AORTA: The proximal, middle, and distal aortic segments are normal in caliber. INFERIOR VENA CAVA: Visualized portions are normal. LIVER: There is normal contour and echogenicity. No focal lesion or intrahepatic biliary duct dilatation. The right lobe measures 19.0 cm in length. The left lobe measures 13.0 cm in length. Portal flow is towards the liver (hepatopetal). Shear wave liver elastography median stiffness is 1.69 m/s (reference: normal median stiffness is 1.3 m/s or less). IQR/median stiffness to assess sampling precision is 0.13 (reference: good quality data set is IQR/median stiffness of 0.15 or less). GALLBLADDER: Normal. The gallbladder is physiologically distended without evidence of stones, sludge, polyps, wall thickening or pericholecystic fluid. COMMON BILE DUCT: Normal in caliber measuring 0.3 cm in diameter. RIGHT KIDNEY: Normal. No hydronephrosis. No renal calculi or focal parenchymal lesions. The kidney measures 11.2 cm in maximum dimension. LEFT KIDNEY: Normal. No hydronephrosis. No renal calculi or focal parenchymal lesions. The kidney measures 11.3 cm in maximum dimension. SPLEEN: Normal. The spleen measures 10.1 cm in maximum dimension. FREE FLUID: None. US/US abdomen comp w elastography IMPRESSION: 1. There is hepatomegaly. 2. Liver elastography: In the absence of other known clinical signs, measurements rule out compensated advanced chronic liver disease. If there are known clinical signs, further testing may be needed for confirmation. 3. Technically limited ultrasound examination of the pancreas. REFERENCE: Society of Radiologists in Ultrasound Liver Stiffness Thresholds (2020): LIVER STIFFNESS THRESHOLDS: *Liver Stiffness equal or less than 1.3 m/s: High probability of being normal. *Liver Stiffness less than 1.7 m/s: In the absence of other known clinical signs, rules out compensated advanced chronic liver disease. *Liver Stiffness 1.7-2.1 m/s: Suggestive of compensated advanced chronic liver disease but need further test for confirmation. *Liver Stiffness over 2.1 m/s: Rules in compensated advanced chronic liver disease. *Liver Stiffness over 2.4 m/s: Suggestive of clinically significant portal hypertension. QUALITY OF DATA SET: *IQR/Median value equal or less than 0.15 implies a quality data set. *IQR/Median value over 0.15 implies a poor quality data set. SIGNIFICANT CHANGE FROM PRIOR EXAM: Significant change if liver stiffness measurement is 10% or greater from prior exam. OTHER CONSIDERATIONS: The stage of liver fibrosis may be overestimated in the setting of acute hepatitis, liver inflammation, elevated liver function tests, hepatic vascular congestion, obstructive cholestasis, non-fasting state, and infiltrative diseases such as amyloidosis and lymphoma. In some patients with NAFLD, the liver stiffness thresholds for compensated advanced chronic liver disease may be lower. In causes other than viral hepatitis and NAFLD, liver stiffness thresholds are not well established.
== END 2023-07-18 08:05 | disposition home or self-care (01) ==
LOC: HO.US 08:04
PROVIDERS: Visit Provider Physician Assistant
DX: Z01.818 Encounter for other preprocedural examination (principal); E66.01 Morbid (severe) obesity due to excess calories; I63.9 Cerebral infarction, unspecified
CPT/HCPCS: 76700; 76981

== ENCOUNTER 2023-07-22 08:10 | Outpatient (AMB) | payer OTHER, SELFPAY ==
--- NOTE | 2023-07-22 14:13 | A.OFFVIS_ITS ---
Intake VS Expanded 07/22/23 14:31 Height 5 ft 3 in Weight 245 lb 8 oz BMI 43.5 Body Fat % 47 Body Fat Mass 115.5 Fat Free Mass 130.2 Visceral Fat Rating 15 Body Water % 38.7 Body Water Mass 95.1 Intake Visit Reasons: TV Consult/Pre Op LSG 08/06/23 Allergies No Known Allergies Allergy (Verified 07/22/23 14:14) Medication List - Last Reconciled 07/22/23 by Blayne Garcia MD amitriptyline 75 mg PO BEDTIME cholecalciferol (vitamin D3) 50 mcg PO DAILY CPAP (CPAP Machine/Device) As directed divalproex (Depakote) 500 mg PO DAILY lorazepam 0.5 mg PO BEDTIME PRN ropinirole ER 2 mg PO BEDTIME HPI TV Consult/Pre Op LSG 08/06/23 HPI Details Start time: 1.58pm, End time: 2.38pm ?I spent 35 minutes speaking with the patient on the phone plus an additional 5 minutes reviewing and updating records for a total of 40 minutes HPI Comments History of Present Illness Details Overall weight loss: 47.3 lbs, or 16.14% TBWL Is doing 2 Premier protein shakes (1.5 scoop in 8oz water), and one meal (12 forks of protein and 12 forks of salad or vegetables) Exercise: Gym x4/week doing the bile and stair master for 500 calories ON LICENSE OF [facility] Medical History (Updated 07/22/23 @ 14:18 by Blayne Garcia MD) Basilar migraine Hemiplegic migraine Anemia Syncope Nocturnal hypoxemia Sleep apnea Right carpal tunnel syndrome Left carpal tunnel syndrome Restless leg syndrome GERD (gastroesophageal reflux disease) Depression Anxiety Radiculopathy Prediabetes Surgical History (Updated 07/22/23 @ 11:01 by Bambi Blackmon RN) Hx of tonsillectomy History of carpal tunnel surgery Hx of breast reduction, elective History of bunionectomy Family History Mother Heart attack Father No problems noted. Sister Hypertension Brother No problems noted. Brother No problems noted. Daughter No problems noted. Son No problems noted. Social History Household Members: Spouse and Family Housing: House Are you a primary manager progressive care to a significant other at home: No Do you presently have visiting nurse or other home services: No Alcohol intake: current Alcohol intake frequency: does not drink Comment: occasional Patient Tobacco Use Status: Never used Tobacco Assessment & Plan Assessment & Plan (1) Morbid obesity: Code(s): E66.01 - Morbid (severe) obesity due to excess calories Plan: 1. Plan for lap sleeve gastrectomy including upper GI endoscopy. All tests has been completed and reviewed and the patient is cleared for the surgery. ?If diaphragmatic or ventral hernias are present at time of surgery, these will be repaired laparoscopically as well. 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 I emphasized the importance of close follow-up, adherence to instructions and good communication. So far she has proven to be an excellent communicator and very compliant with all our directions accomplishing a great weight loss. I believe that she is an excellent candidate and she is ready. 2. Preop prescriptions were provided and explained the purpose of each one. Need to be purchased preop. Start Pantoprazole now as you get it from the pharmacy, 1 pill per day. Sucralfate and Zofran are for after surgery as needed. 3. Bowel prep: please do 7 packets ?of Miralax mixing each one with a an 8oz glass of water, crystal light, gatorade zero, or propel ?on 08/04/23 and the same amount on 08/05/23. The Miralax you begin with one packet at a time in 8oz water or crystal light, gatorade zero, or propel ?as early in the day as you can and you do them back to back until you finish them. Continue the protein shakes during? the bowel prep. 4. Needs to purchase 1oz medicine cups . 5. Needs to purchase Children's liquid Tylenol for postop pain control. 6. Avoid aspirin, motrin, Advil, Aleve, Ibuprofen, Naproxyn. Tylenol is OK. 7. She needs to purchase the Celebrate 4:1 protein shakes from the hospital's gift shop. 8. Will do basic preop blood work-up any day between Saturday07/29/23 and Saturday08/02/23 fasting for 12 hours and is scheduled to see the Anesthesiologist prior to the day of surgery. 9. Importance of adherence to postop folllow-up and recommendations was underscored and she understands that. 10. Stop food and bars as of Saturday07/27/23 and continue with 4 Premier protein shakes (ONE scoop EACH in 8oz water or almond milk) at 7am-9am, 10am-1 2pm, 1pm-3pm, 4pm-6pm and one more Premier protein shake with TWO scoops in 8oz of almond milk or water at 7pm-9pm 11. No soups, broths or V8 12. The patient's?medical?history has been reviewed and they are considered low risk for post op DVT and therefore DVT prophylaxis is not considered necessary. Travel after surgery was reviewed. The patient has not disclosed any travel plans during the first 30 days after surgery and they have been advised that within the first 30 days after surgery any bus, plane, train or car travel over 2 hours in duration is contraindicated due to the possibility of developing blood clots from immobility. Any travel, needs to include periods of ambulation of 10 minutes in duration every 2 hours.? Patient was instructed to discuss any plans for travel during this period with their bariatric surgeon.? 13. Use your CPAP daily and bring it to the hospital with your mask 14. Please take at the day of surgery the following medications: NONE 15. Stop any control pills and don't use them for one month after surgery 16. Absolutely no smoking or vaping, or marijuana until the surgery and for at least the first 4 weeks. Only nicotine patches are allowed. 17. Send me weight measurements on and then on the day of surgery before you go to the hospital. 18. Avoid any steroids by mouth for any reason. Let me know if someone prescribes them to you 19. These instructions supersede anything else you read in the handbook, anything you watched in videos or classes or you were told by any other provider. If there is any conflict, you follow the above instructions and nothing else. Orders: Orders Comprehensive Met. Panel Today E66.01 - Morbid (severe) obesity due to excess calories Prothrombin Time INR Today E66.01 - Morbid (severe) obesity due to excess calories C Reactive Protein Today E66.01 - Morbid (severe) obesity due to excess calories Hemoglobin A1c Today E66.01 - Morbid (severe) obesity due to excess calories TSH reflex Free T4 Today E66.01 - Morbid (severe) obesity due to excess calories Type and Screen Today E66.01 - Morbid (severe) obesity due to excess calories Partial Thromboplastin Time Today E66.01 - Morbid (severe) obesity due to excess calories Lipid Panel Today E66.01 - Morbid (severe) obesity due to excess calories Complete Blood Count Auto Diff Today E66.01 - Morbid (severe) obesity due to excess calories Insulin Today E66.01 - Morbid (severe) obesity due to excess calories Medications: New pantoprazole 40 mg PO DAILY 90 tabs 0RF K21.9 - Gastro-esophageal reflux disease without esophagitis sucralfate 10 mL PO BID 600 mL 0RF K21.9 - Gastro-esophageal reflux disease without esophagitis ondansetron Only take one every 12 hours as needed if you have nausea 4 mg PO Q12H 20 tabs 0RF nausea and vomiting R11.0 - Nausea polyethylene glycol 3350 (Miralax) Mix each packet with 8oz of water, Crystal light, or Gatorade zero, or Propel and do 7 packets on 08/04/23 and another 7 packets on 24 17 grams PO DAILY 14 ea 0RF Z01.818 - Encounter for other preprocedural examination Telehealth Telehealth Location of provider rendering services: practice address Location of patient: address on file Patient Identification confirmed using: Name, : Yes Telehealth method: voice only Patient verbally consented to treatment: Yes Patient verbally consented to billing insurance company: Yes Patient informed of any privacy concerns related to visit: Yes Minutes spent on Phone/Video with Pt.: 40 Coding Level of Care Code Tele Est Pt Level 4 (66212) Diagnoses Morbid obesity E66.01 Time Spent (min) 40
[2023-07-22 14:31] VITALS: BMI 43.5
== END 2023-07-22 14:38 | disposition home or self-care (01) ==
PROVIDERS: Visit Provider Surgery
DX: E66.01 Morbid (severe) obesity due to excess calories (principal); Z68.41 Body mass index [BMI] 40.0-44.9, adult
CPT/HCPCS: 99214

== ENCOUNTER → 2023-07-22 08:10 | Outpatient (BNVA) | payer OTHER, SELFPAY | PROVIDERS: Visit Provider Surgery ==

== ENCOUNTER 2023-08-01 07:01 | Outpatient (REF) | payer OTHER, SELFPAY ==
[2023-08-01 07:28] LABS: MANUAL DIFF FLAG NO
[2023-08-01 08:00] LABS: Basophils Percent Auto 0.5 % (0-2); Eosinophils Absolute Auto 0.1 X10*3/uL (0.0-0.4); Eosinophils Percent Auto 1.7 % (0-4); Hematocrit 38.7 % (37.0-47.0); Hemoglobin 11.8 g/dl (12.0-16.0); Imm Gran Abs Auto 0.02 X10*3/uL (0.00-0.03); Imm Gran Pct Auto 0.3 % (0.0-0.4); Lymphocytes Absolute Auto 2.1 X10*3/uL (1.2-4.9); Lymphocytes Percent Auto 26.6 % (20-40); Mean Corpuscular HGB Conc 30.5 g/dl (31.0-35.0); Mean Corpuscular Hemoglobin 18.7 pg (27.0-33.0); Mean Corpuscular Volume 61.4 fL (80.0-98.0); Mean Platelet Volume 10.5 fL (9.4-12.3); Monocytes Absolute Auto 0.4 X10*3/uL (0.1-1.2); Monocytes Percent Auto 5.1 % (2-11); Neutrophils Absolute Auto 5.2 x10*3/uL (2.0-8.3); Neutrophils Percent Auto 65.8 % (45-73); Platelet Count 260 X10*3/uL (160-400); Red Cell Distribution Width 17.1 % (11.0-16.0); White Blood Count 7.9 X10*3/uL (4.8-10.8)
[2023-08-01 08:08] LABS: Estimated Average Glucose 105 mg/dL; Hemoglobin A1c % 5.3 % (<6.0)
[2023-08-01 08:15] LABS: Alanine Aminotransferase 10 U/L (0-31); Albumin Level 4.1 g/dL (3.5-5.0); Alkaline Phosphatase 73 U/L (39-117); Anion Gap 13 (12-20); Aspartate Amino Transferase 11 U/L (5-31); Bilirubin Total 0.9 mg/dL (0.0-1.0); Blood Urea Nitrogen 24 mg/dL (9-16); Calcium 9.5 mg/dL (8.4-10.2); Carbon Dioxide 28 mmol/L (22-29); Chloride 105 mmol/L (96-108); Cholesterol 148 mg/dL (<200); Estimated Glomerular Filt Rate > 60; Glucose Random 105 mg/dL (60-115); HDL Cholesterol 25 mg/dL (>40); LDL Cholesterol Calculated 95 mg/dL (<100); Potassium 3.9 mmol/L (3.3-5.1); Sodium 142 mmol/L (135-145); Total Protein 7.2 g/dL (6.5-8.0); Triglycerides 142 mg/dL (<150)
[2023-08-01 08:30] LABS: Insulin 18 uU/mL (2-29); TSH reflex Free T4 0.78 uIU/mL (0.32-4.0)
[2023-08-01 08:51] LABS: Prothrombin Time 11.9 SEC (11.1-13.3)
[2023-08-01 08:54] LABS: Partial Thromboplastin Time 32.3 SEC (26.0-36.8)
== END 2023-08-01 07:02 | disposition home or self-care (01) ==
LOC: HO.LAB 07:01
PROVIDERS: Visit Provider Surgery
DX: E66.01 Morbid (severe) obesity due to excess calories (principal)
CPT/HCPCS: 36415; 80053; 80061; 83036; 83525; 84443; 85025; 85610; 85730; 86140

== ENCOUNTER 2023-08-06 05:57 | Inpatient (IN) | payer OTHER, SELFPAY ==
[2023-07-22 13:44] VITALS: BMI 42.0
[2023-08-06] VITALS (20 sets, daily range): BP systolic 113–146; BP diastolic 63–92; PULSE 69–93; RESP 10–16; TEMP 36–36.6; O2SAT 94–100; BMI 41.9
[2023-08-06] MEDS: Lactated Ringers 1,000 ML 999 ML IV (06:38)
[2023-08-06] MEDS: Aprepitant 32 MG/4.4 ML VIAL IVPUSH (06:39)
--- NOTE | 2023-08-06 07:16 | HO.ANESPROP2 ---
HPI - Anesthesia Eval Consult details Narrative: 52 yo female patient for EGD, Laparoscopic sleeve gastrectomy, possible diaphragmatic hernia repair, possible ventral hernia repair, possible open PMFSH Active Problems Active Problems: All Active Problems (Updated 08/06/23 @ 07:14 by Ivania Macias MD) History of depression (Acute) Adjustment disorder, unspecified (Acute) GERD (gastroesophageal reflux disease) (Acute) Pre-op evaluation (Acute) Functional neurological symptom disorder with abnormal movement (Acute) JOSE on CPAP (Acute) Hemiplegic migraine (Acute) CVA (cerebral vascular accident) (Acute) Morbid obesity (Acute) BMI 41.9 Restless leg syndrome (Acute) Past Medical History Medical History CVA (cerebral vascular accident) Basilar migraine Hemiplegic migraine Anemia Syncope Nocturnal hypoxemia Sleep apnea Right carpal tunnel syndrome Left carpal tunnel syndrome Restless leg syndrome GERD (gastroesophageal reflux disease) Depression Anxiety Radiculopathy Prediabetes Family History Family History Mother Heart attack Father No problems noted. Sister Hypertension Brother No problems noted. Brother No problems noted. Daughter No problems noted. Son No problems noted. Family history of problems with anesthesia: No Surgical History Surgical History Hx of tonsillectomy History of carpal tunnel surgery Hx of breast reduction, elective History of bunionectomy History of Problems with Anesthesia: No Social History Social History Household Members: Spouse and Family Housing: House Are you a primary housekeeper child care to a significant other at home: No Do you presently have visiting nurse or other home services: No Alcohol intake: current Alcohol intake frequency: does not drink Comment: occasional Patient Tobacco Use Status: Never used Tobacco Have you been hit, kicked, punched, or otherwise hurt by someone within the past year? If so, by whom?: No Advance Directives: No Advance Directives Information Provided: No Advance Directives on File: No Recently lost weight without trying: No Eating poorly because of decreased appetite: No Nutrition Risks: No Nutritional Risk Patient : No : No Poor oral hygiene: No Meds Allergies Allergy/AdvReac Type Severity Reaction Status Date / Time No Known Allergies Allergy Verified 07/22/23 14:14 Active Medications: Current Medications Lactated Ringer's (Lr) 1,000 mls @ 999 mls/hr IV .Q1H1M RHONDA Stop: 08/06/23 08:00 Last Admin: 08/06/23 06:38 Dose: 999 mls/hr Home Medications Medication Instructions Recorded Confirmed Last Taken Type CPAP (CPAP Machine/Device) 11/02/22 07/22/23 Unknown History amitriptyline 75 mg tablet 75 mg PO BEDTIME 11/02/22 07/22/23 08/04/23 History divalproex 500 mg tablet,delayed 500 mg PO DAILY 11/02/22 07/22/23 08/05/23 History release (Depakote) lorazepam 0.5 mg tablet 0.5 mg PO BEDTIME PRN Anxiety 11/02/22 07/22/23 Unknown History ropinirole 2 mg tablet,extended 2 mg PO BEDTIME 11/02/22 07/22/23 08/04/23 History release 24 hr Exam Height,Weight and Vital Signs: Height 5 ft 4 in Weight 110.847 kg Last Vital Signs Temp 97.7 F 08/06/23 06:22 Pulse 89 08/06/23 06:22 Resp 16 08/06/23 06:22 BP 113/63 08/06/23 06:22 Pulse Ox 95 08/06/23 06:22 O2 Del Method Room Air 08/06/23 06:22 Pertinent Lab Results Pertinent Lab Results: Laboratory Tests 08/01/23 07:16 Blood Type A Negative Antibody Screen NEGATIVE Airway Mallampati Class: II TM Dist: >3cm Neck ROM: Full Loose/Missing/Broken Teeth: No (Denies broken, loose, missing teeth) Heart: RRR Lungs: CTAB Assessment and Plan Assessment Anesthesia Assessment: Anesthesia Plan Discussed and Chart Reviewed Final Anesthetic Review Family History of Problems with Anesthesia: No History of Problems with Anesthesia: No NPO: Yes ASA Class: III Final Preanesthetic Review: No Changes in Pt Med Stat, Meds/Allgs Chart Reviewed, Consent Obtained/Reviewed and Anes Risks/Benef Reviewed Patient Risk: Intermediate Procedure Risk: Intermediate Assessment/Block/Sedation in SS: Assess/Block/Sedation-SS Anesthetic Plan Anesthetic Plan: GA Disposition: Standard PACU and Inp. Admit - Standard Bed
--- NOTE | 2023-08-06 07:40 | MHC.SHP ---
Pre-Procedural Eval Section A - 24 Hr Update-Section A only Date of Service: 08/06/23 The patient is an INPATIENT: No The patient has been examined within 24 hours of the surgical procedure. The History & Physical has been completed within 30 days and I have reviewed it.: Yes Section B - Complete if H&P > 30 days Chief Complaint: Morbid obesity Relevant Family History (Specify if Yes): No Relevant Social History: None Present Medications: None Medical History: No relevant PMH History of Previous Operations: No relevant previous surgery Allergies: Allergies Allergy/AdvReac Type Severity Reaction Status Date / Time No Known Allergies Allergy Verified 07/22/23 14:14 Review of Systems Sugical H&P ROS: Negative: Constitution, Cardiovascular, Respiratory, Neurological, Psychiatric, Hem-Onc, Allergic/Immunologic, Gastrointestinal, Genitourinary, Musculoskeletal, Integumentary, Endocrine and Eyes/Ears/Nose/Throat Exam Surgical H&P Exam: Normal: HEENT, Normal: Heart, Normal: Lungs, Normal: Extremities, Normal: Abdomen, Normal: Skin and Normal: Neurological Plan Diagnosis/Plan: Unchanged I have reviewed the history and physical and performed a pertinent physical examination on my patient. No changes have occurred unless specified. Time Spent With Patient Time: Total time managing care of this patient today ____ minutes.
--- NOTE | 2023-08-06 07:41 | P.BOP_ITS ---
Brief Operative Note Date of Service: 08/06/23 Pre-op diagnosis: Morbid obesity with comorbidities (see below) Post-op diagnosis: same Procedure: INITIAL PATIENT BMI ON PRESENTATION AT OUR OFFICE: 51.9 kg/m2 LAST BMI BEFORE SURGERY: 43.6 kg/m2 COMORBIDITIES: sleep apnea on CPAP, GERD, migraines, depression, anxiety, restless leg syndrome, CVA, liver fibrosis ?The patient presented to the Weight Management Program with significant obesity that was negatively impacting the patient's comorbidities as listed above.? The program is a phased program with a special focus on preoperative medical weight management to promote substantial weight loss and prepare the patients for the second phase of the program: bariatric surgery. The patient participated in an intensive weekly lifestyle ?intervention and exercise program during which the p atient ?has lost between the initial office visit and the last preoperative visit 51.9 lbs, or 17.7% of initial actual body weight. It was deemed appropriate for the patient to now have bariatric surgery. In light of the current Covid-19 pandemic and the well documented strong association of obesity and increased risk of worse outcomes if infected with Covid-19 (REFERENCES: https://pubmed.ncbi.nlm.nih.gov/94396718/ ,? https://pubmed.ncbi.nlm.nih.gov/02356018/ ), any delay in undergoing bariatric surgery may lead to the patient's worsening health condition and increased?risk of more severe Covid-19 disease if infected. In addition a recent?study from [facility] published in [employer] on 06/12/2021 ([email or web address]) found that, among patients with obesity, substantial weight loss achieved with surgery was associated with improved outcomes of COVID-19 infection. The findings suggest that obesity can be a modifiable risk factor for the severity of COVID-19 infection. In addition, the patient met the BMI-criteria for bariatric surgery based on the BMI on initial presentation. The patient should not be penalized for achieving such weight loss because ?it is not sustainable long-term without surgical intervention and it was achieved in preparation for bariatric surgery ?under my direction and based on my published research ([email or web address]).[email or web address] and? [email or web address].soard.org/article/[email or web address](81)[email or web address]-X/pdf ) ?that a 10% preoperative weight loss improves long-term weight loss after surgery and reduces perioperative complications.? Insurance carriers such as [facility] have endorsed my recommendations ?and have included in their policies criteria to include a 10% preoperative weight loss requirement. PROCEDURE: Esophago-gastroscopy laparoscopic sleeve gastrectomy and laparoscopic gastropexy INDICATIONS: This is a 52 year-old female who was electively scheduled for laparoscopic, possibly open sleeve gastrectomy. The risks and complications of the procedure were discussed with the patient in advance, particularly the possibility of ; pulmonary embolism; staple line leak; bleeding; GERD; cardiac, pulmonary, or renal complications; as well as long-term problems such as insufficient weight loss, vitamin deficiency, strictures, or ulcers. The patient understood all the risks, and was in agreement to proceed with surgery. DESCRIPTION OF PROCEDURE: After informed consent was obtained from the patient, the patient was given preoperative antibiotics, and was transferred to the operating room. After successful induction of general anesthesia, pneumatic compression devices were placed on both lower extremities. An upper endoscopy was performed next. The oropharynx and esophagus appeared to be within normal limits. There was no diaphragmatic hernia present consistent with the findings of the preoperative upper GI. The stomach was entered. Then after all fluid and air were suctioned and the stomach was fully decompressed, the scope was withdrawn and secured in the mid esophagus. The patient was then prepped and draped in the usual sterile manner, and abdominal access was established at the right upper quadrant with the Iris technique. A 12 mm blunt port was inserted, and the abdomen was insufflated with CO2 to a pressure of 15 mmHg. Under direct visualization, additional ports were placed, specifically two 5 mm Versi-step ports to the left upper quadrant, and a 5 mm Versi-Step port to the right upper quadrant. 1% lidocaine plain was used to infiltrate all port sites as well as all fascia defects. Following that, the patient was placed in a steep reverse Trendelenburg position. An additional 5 mm port was placed to the right flank for the Mediflex retractor that was used to retract the left lobe of the liver. The gastro-esophageal fat pad was opened with the ultrasonic device (Thunderbeat, Olympus) and the anterior esophagus and hiatus were exposed. The angle of His was opened with the ultrasonic device the fundus of the stomach from any diaphragmatic and splenic attachments. I then opened the gastrocolic ligament between the transverse colon and the greater curvature of the stomach with the ultrasonic device to enter the lesser sac and facilitate the ligation of the short gastric vessels. I started at a mid-point along the greater curvature and using the Thunderbeat, all short gastric vessels were divided all the way to the angle of His until the left es was completely dissected at its entirety. I then divided the gastro-colic ligament distally to a distance of about 3-4 cm proximal to the pylorus.? The stomach was then divided transversely with two Endo AISHA-45 purple and four AISHA-60 articulating purple loads using the LuckyPennie stapler and loads. Every effort was made that the gastric sleeve had a tubular shape and an even caliber throughout. Once the sleeve resection was completed, the staple line of the gastric sleeve was reinforced with Hemoclips. The resected stomach was retrieved without difficulty from the Iris port. A gastropexy was then performed in order to prevent postoperative GERD and partial gastric volvulus. Several interrupted 2.0 Surgidac sutures were placed between the sleeve's staple line and the previously divided greater omentum and gastro-colic ligament using the Endo-Stitch device. ?An upper endoscopy was performed. There was no narrowing at the GE junction. The scope was easily advanced all the way to the pylorus which was clearly visualized. There was no narrowing anywhere and the sleeve's caliber was even throughout. The sleeve's staple line was inspected and there was no evidence of ischemia, bleeding or dehiscence. At that point the gastroscope was withdrawn from the patient?s mouth while we were decompressing the bowel and the stomach from any remaining air. I looked into the lesser sac to see how the sleeve was situating and it was situating well. There was no bleeding from the staple line, spleen, or short gastric vessels. The Mediflex retractor was removed, and the undersurface of the liver was inspected and there was no bleeding. The patient was placed in supine position. I closed the fascial defect of the 12 mm port site with a figure of eight #1 Polysorb suture. Then 30cc Ropivacaine plain with 10 mg of Dexamethasone were used to infiltrate the fascial closure as well as all skin incisions. At this point, the abdomen was deflated, all ports were removed under direct vision, and no bleeding was noted from any of the port sites. The skin incisions were irrigated with saline and were closed with 4-0 absorbable monofilament sutures. Steri-Strips and OpSites were used to cover all incisions. The patient was extubated and was transferred in stable condition to the recovery room for further care. I was present and performed all richards parts of the procedure. Ms. Wakefield was the international first officer. There were no residents to assist with this case. Vin Garcia MD, PhD, FACS Surgeon: Blayne Garcia MD Anesthesia: GETA, local and other (TAP block) Was an Senior Support Analyst used for this Procedure?: No Senior Support Analyst: Maribel Wakefield Estimated blood loss (mL): 10 IV fluids (mL): 2,500 Urine output (mL): 0 (No Machado to record output) Pathology: other (Stomach) Condition: stable Disposition: PACU
--- NOTE | 2023-08-06 07:44 | P.PNGS_ITS ---
Subjective Subjective Date of Service: 08/07/23 Interval history: Feels well. Mild incisional pain. She is tolerating phase 1 bariatric diet Physical Exam 2 Vital Signs: Vital Signs: Last Vital Signs Temp 97.7 F 08/06/23 06:22 Pulse 89 08/06/23 06:22 Resp 16 08/06/23 06:22 BP 113/63 08/06/23 06:22 Pulse Ox 95 08/06/23 06:22 O2 Del Method Room Air 08/06/23 06:22 BMI result Body Mass Index 41.9 GI: Inspection: Yes normal to inspection, Yes incision (clean, dry and intact) and Yes obesity Palpation (GI): Soft to palpation Extrem: Right lower extremity: normal to inspection (no calf tenderness) L eft lower extremity: normal to inspection (no calf tenderness) Objective Data Active Medications Fentanyl (Fentanyl Citrate/Pf 100 Mcg/2 Ml Vial) 25 mcg IVPUSH Q5M PRN; Protocol PRN Reason: Pain, Moderate(Pain Scale 4-6) Hydromorphone HCl (Hydromorphone Hcl 0.5 Mg/0.5 Ml Syringe) 0.25 mg IVPUSH Q5M PRN; Protocol PRN Reason: Pain, Severe (Pain Scale 7-10) Lactated Ringer's (Lr) 1,000 mls @ 999 mls/hr IV .Q1H1M [facility] Stop: 08/06/23 08:00 Last Admin: 08/06/23 06:38 Dose: 999 mls/hr Documented By: TORSTEN Lactated Ringer's (Lr) 1,000 mls @ 100 mls/hr IVCONT .Q10H [facility] Ondansetron HCl (Ondansetron Hcl 4 Mg/2 Ml Vial) 4 mg IVPUSH ONCE PRN PRN Reason: Nausea and Vomiting Labs 08/07/23 05:34 08/07/23 06:23 Procedures Date of Service Date of Service: 08/07/23 Progress Note: A&P Assessment and plan (1) Morbid obesity: Status: Acute Assessment and Plan: s/p laparoscopic sleeve gastrectomy and gastropexy Doing well Will check am labs and if OK the patient will be discharged home (2) JOSE on CPAP: Status: Acute (3) CVA (cerebral vascular accident): Status: Acute (4) Restless leg syndrome: Status: Acute (5) GERD (gastroesophageal reflux disease): Status: Acute (6) History of depression: Status: Acute (7) Liver fibrosis: Status: Acute (8) Hemiplegic migraine: Status: Acute (9) S/P laparoscopic sleeve gastrectomy: Status: Acute Time Spent With Patient Time: Total time managing care of this patient today ____ minutes. Quality Stroke Does the patient have a stroke diagnosis?: No VTE Prior VTE?: No VTE Risk Level:: Surgical - moderate VTE Device Contraindication: N/A - Device Ordered VTE Drug Contraindication: Treatment Not Indicated
--- NOTE | 2023-08-06 07:56 | PHA.MEDREC ---
Pharmacy Consult ? Medication Reconciliation RN has completed the medication reconciliation, pharmacy reviewed.
--- NOTE | 2023-08-06 09:50 | PM.DS ---
DS: Providers Provider Date of Service: 08/07/23 Date of admission: 08/06/23 05:57 Primary care physician: Nonstaff Physician DS: Diagnosis Discharge Diagnosis (1) Morbid obesity: Status: Acute (2) JOSE on CPAP: Status: Acute (3) CVA (cerebral vascular accident): Status: Acute (4) Restless leg syndrome: Status: Acute (5) GERD (gastroesophageal reflux disease): Status: Acute (6) History of depression: Status: Acute (7) Liver fibrosis: Status: Acute (8) Hemiplegic migraine: Status: Acute DS: Summary Hospital Course Hospital Course: ADMITTING DIAGNOSIS: morbid obesity, JOSE, migraines, GERD, restless leg, history of CVA DISCHARGE DIAGNOSIS: same, s/p laparoscopic sleeve gastrectomy PAST SURGICAL HISTORY: breast reduction, bunionectomy PROCEDURE: upper endoscopy, laparoscopic sleeve gastrectomy DISCHARGE SUMMARY: History of Present Illness: The patient is a 52 year-old woman with a BMI of 51.9 kg/m2 and associated co-morbidities as described above. The patient had extensive work-up, lost 47.3 lbs preoperatively and was electively scheduled for laparoscopic, possible open sleeve gastrectomy and gastropexy. Risks and complications of the surgery were discussed with the patient in advance, particularly the possibility of , pulmonary embolism, anastomotic leak, bleeding, bowel injury, GERD, cardiac, renal or pulmonary complications. The patient understood all the risks and was in agreement with the surgical plan. Hospital Course: The patient underwent an uneventful laparoscopic sleeve gastrectomy with gastropexy on the day of admission. Postoperatively, the patient was transferred to the surgical floor. The patient received IV Acetaminophen and IV dilaudid for pain control. Patient was started on bariatric phase 1 diet POD #0. On postoperative day one, the patient was feeling well without nausea, vomiting, fevers, or tachycardia. The patient had some mild incisional pain and the abdomen was soft. On the morning of postoperative day one, the patient was continued on 1 ounce of water or ice every half hour. During the day, the patient did fairly well, having some incisional pain, but able to ambulate adequately and to tolerate liquids well. Since the patient is doing well, we decided that the patient was ready to be discharged. The patient was given instructions to follow-up with me next week and to call my office for any fever over 101, persistent abdominal pain, nausea, vomiting, GERD, symptoms of DVT such as calf tenderness, or leg swelling, or pulmonary embolism such as chest pain or shortness of breath. The patient was also instructed to drink 40-60 ounces of liquids per day using the 1-ounce cups. The patient had been given prescriptions for Tylenol for pain, Zofran prn for nausea, and pantoprazole and carafate previously. The patient was encouraged to ambulate and use the incentive spirometer. The patient was allowed to shower, but no baths, and encouraged to stay active at home. All of these instructions were given to the patient personally. All questions were answered and the patient understood all instructions, the instructions were also given to the patient in print. Time Attestation Discharge coordination time: Less than 30 minutes Quality: Safe Use of Opioids Does Pt have an Active Cancer Diagnosis on the Problem List?: No Quality: Stroke Does the patient have a stroke diagnosis?: No Physical Exam Vital Signs: Vital Signs: Last Vital Signs Temp 97.7 F 08/06/23 06:22 Pulse 89 08/06/23 06:22 Resp 16 08/06/23 06:22 BP 113/63 08/06/23 06:22 Pulse Ox 95 08/06/23 06:22 O2 Del Method Room Air 08/06/23 06:22 BMI result Body Mass Index 41.9 DS: Data Data Completed and Pending Pending studies at discharge: Pending at discharge 08/06/23 09:25 Surgical [PTH] Routine Discharge Plan Discharge Anticipated Discharge Date/Time: 08/06/23 10:48 Patient Disposition: Home, Self-Care Discharge Diagnosis: s/p sleeve gastrectomy Referrals: Physician,Nonstaff [Primary Care Provider] - 1 Week Discharge Medications: Continued pantoprazole 40 mg tablet,delayed release (DR/EC) 40 mg PO DAILY Qty: 90 0RF sucralfate 100 mg/mL suspension 10 ml PO BID Qty: 600 0RF ondansetron 4 mg tablet,disintegrating 4 mg PO Q12H Qty: 20 0RF Rx Instructions: Only take one every 12 hours as needed if you have nausea divalproex [Depakote] 500 mg tablet,delayed release (DR/EC) 500 mg PO DAILY amitriptyline 75 mg tablet 75 mg PO BEDTIME lorazepam 0.5 mg tablet 0.5 mg PO BEDTIME PRN (Reason: Anxiety) ropinirole 2 mg tablet extended release 24 hr 2 mg PO BEDTIME Discontinued cholecalciferol (vitamin D3) 50 mcg (2,000 unit) capsule 50 mcg PO DAILY Qty: 30 5RF No Action (DME) CPAP Machine/Device Device See Rx Instructions .Route Rx Instructions: As directed Discharge Orders: Discharge Order (Routine); Ordered 08/07/23 Ordered By: Blayne Garcia Activity on Discharge: As tolerated Stand Alone Forms: Patient Portal Discharge page Care Plan Goals: weight loss Health Concerns: morbid obesity Plan of Treatment: No tub baths, sex or returning to work until discussed at first post op appointment. No exercise, alcohol, tobacco or illegal drug use. Continue to use incentive spirometer hourly while awake. Walk in home for 5- 10 minutes every 2 hours during the first week. Continue phase 1 diet today and start phase 2 diet tomorrow morning. Follow all instructions in the bariatric handbook and call with any questions. 1. Please call your doctor or come back to the emergency room should any new symptoms arise. 2. You will receive a courtesy call from [facility] 24-48 hours after discharge. 3. Activity: abstain from alcohol, practice limited stair climbing, no bending, no driving, no exercise, no illicit substances, no lifting, no sex, no tub bath, no work. 4. Diet: continue as discussed with bariatric team.. 5. Dressing Change/Wound Care: Do not change or remove surgical dressings unless they are wet or soiled. 6. Call your doctor if: - Your temperature exceeds 101.5 F - You experience excessive pain or swelling - You have an unexpected reaction to medication - You have excessive bleeding - You experience continued vomiting/nausea - Your incision begins to separate - Your incision shows signs of infection such as increased redness, swelling, excessive pain, heat, or drainage (light blood or clear fluid is normal) 7. General instructions: No lifting greater than 5 lbs for 1 week and not more than 20lbs the next 3?weeks. No driving until seen at the office in 5-7 days after surgery. If you do not move your bowels in the next 2 days, please tell?Dr. Garcia. Please walk around your home every hour or two to prevent blood clots from forming in your legs. You do not need to wake from sleeping to walk. Please sleep in a bed or couch to prevent kinking at the hips and knees. Please take your incentive spirometer (your lung master certified rv technician) home with you and use it for the next few days to prevent pneumonia. You may shower, no hot tubs, baths or swimming pools.?Please follow the post op diet instructions you are?given by Dr Rhonda lynn? and text me daily at 5-6pm for an update.?If you have any issues or concerns or questions please communicate this to him via text.? The Celebrate shakes have all of the bariatric vitamins you need if you consume these shakes. If you are drinking other protein shakes, you will need to purchase the Celebrate multivitamins and calcium that are available in the hospital gift shop on the first floor of the [facility].??Do not take anything without first discussing with Dr Garcia. Please make sure you are consuming at least 40 ounces of fluids per day starting the?day AFTER your discharge from the hospital. Always drink 1-2 ml per minute using the 5ml?syringe. If you drink faster you may experience?bloating,?gas pain, burping, nausea or heartburn. In that case please slow down your pace and use the syringe to?understand better the?proper?pace and volume of drinking. Do not hesitate to contact the office with any questions at . The patient's medical history has been reviewed and they are considered low risk for post op DVT and therefore DVT prophylaxis is not considered necessary. Travel after surgery was reviewed. The patient has not disclosed any travel plans during the first 30 days after surgery and they have been advised that within the first 30 days after surgery any bus, plane, train or car travel over 2 hours in duration is contraindicated due to the possibility of developing blood clots from immobility. Any travel, needs to include periods of ambulation of 10 minutes in duration every 2 hours. The patient was instructed to discuss any plans for travel during this period with their bariatric surgeon. Assessment: stable, post op sleeve gastrectomy Discharge Date/Time: 08/07/23 09:21
[2023-08-06] MEDS: fentaNYL citrate/PF 100 MCG/2 ML VIAL 25 MCG IVPUSH ×2 (10:22→10:27)
[2023-08-06 10:46] LABS: Hematocrit 36.2 % (37.0-47.0)
[2023-08-06 10:56] LABS: Anion Gap 13 (12-20); Blood Urea Nitrogen 24 mg/dL (9-16); Calcium 8.7 mg/dL (8.4-10.2); Carbon Dioxide 24 mmol/L (22-29); Chloride 107 mmol/L (96-108); Creatinine Clr Calc Pharmacy 100.1; Estimated Glomerular Filt Rate > 60; Glucose Random 133 mg/dL (60-115); Potassium 3.9 mmol/L (3.3-5.1); Sodium 140 mmol/L (135-145)
[2023-08-06] MEDS: Famotidine/PF 20 MG/2 ML VIAL IVPUSH ×2 (12:38→21:06)
[2023-08-06] MEDS: Lactated Ringers 1,000 ML 100 ML IVCONT ×2 (12:38→22:07)
[2023-08-06] MEDS: ceFAZolin Sodium/Dextrose,Iso 2 GM/50 ML PIGGYBACK IV (13:32)
[2023-08-06] MEDS: Acetaminophen 1,000 MG/100 ML PIGGYBACK 16.7 MG IV ×2 (15:00→21:05)
[2023-08-06] MEDS: HYDROmorphone HCl 0.5 MG/0.5 ML SYRINGE 0.25 MG IVPUSH ×2 (15:31→21:06)
[2023-08-06] MEDS: Divalproex Sodium 500 MG TABLET.DR PO (15:39)
[2023-08-06] MEDS: Amitriptyline HCl 25 MG TABLET 75 MG PO (21:06)
[2023-08-06] MEDS: rOPINIRole HCL 2 MG TABLET PO (22:07)
[2023-08-07 03:05] VITALS: BP 142/76; PULSE 66; RESP 16; TEMP 36.4; O2SAT 97
[2023-08-07] MEDS: Acetaminophen 1,000 MG/100 ML PIGGYBACK 16.7 MG IV (03:05)
[2023-08-07 06:26] LABS: MANUAL DIFF FLAG NO
[2023-08-07 06:36] LABS: Basophils Percent Auto 0.2 % (0-2); Hemoglobin 10.4 g/dl (12.0-16.0); Imm Gran Abs Auto 0.03 X10*3/uL (0.00-0.03); Imm Gran Pct Auto 0.4 % (0.0-0.4); Lymphocytes Absolute Auto 1.4 X10*3/uL (1.2-4.9); Lymphocytes Percent Auto 17.8 % (20-40); Mean Corpuscular HGB Conc 30.6 g/dl (31.0-35.0); Mean Corpuscular Volume 62.3 fL (80.0-98.0); Mean Platelet Volume 11.2 fL (9.4-12.3); Monocytes Absolute Auto 0.3 X10*3/uL (0.1-1.2); Monocytes Percent Auto 3.9 % (2-11); Neutrophils Absolute Auto 6.3 x10*3/uL (2.0-8.3); Neutrophils Percent Auto 77.7 % (45-73); Platelet Count 247 X10*3/uL (160-400); Red Blood Count 5.46 X10*6/uL (4.20-5.50); Red Cell Distribution Width 15.9 % (11.0-16.0); White Blood Count 8.1 X10*3/uL (4.8-10.8)
[2023-08-07 06:48] LABS: Anion Gap 12 (12-20); Blood Urea Nitrogen 15 mg/dL (9-16); Calcium 8.7 mg/dL (8.4-10.2); Carbon Dioxide 26 mmol/L (22-29); Chloride 108 mmol/L (96-108); Creatinine Clr Calc Pharmacy 117.8; Estimated Glomerular Filt Rate > 60; Glucose Random 105 mg/dL (60-115); Potassium 3.7 mmol/L (3.3-5.1); Sodium 142 mmol/L (135-145)
[2023-08-07 07:03] VITALS: BP 120/58; PULSE 62; RESP 16; TEMP 36.6; O2SAT 95
[2023-08-07] MEDS: Divalproex Sodium 500 MG TABLET.DR PO (07:13)
[2023-08-07] MEDS: Famotidine/PF 20 MG/2 ML VIAL IVPUSH (07:13)
--- NOTE | 2023-08-07 08:27 | MHC.CM.PN ---
CM MET WITH PT. INDEPENDENT AT BASELINE. PT IS MEDICALLY CLEARED FOR HOME, NO SERVICES. PT HAS OWN RIDE HOME.
--- NOTE | 2023-08-07 18:12 | HO.POSTANES ---
Post Anesthesia Evaluation Post Anesthesia Evaluation Date of Service: 08/06/23 Vital Signs: Vital Signs Temp Pulse Resp BP Pulse Ox O2 Del Method 08/07/23 07:03 97.8 F 62 16 120/58 L 95 CPAP Anesthesia: General Endotracheal-GETA Mental Status: Awake Pain Control: Satisfactory Nausea/Vomiting: None Hydration: Adequate Anesthesia-Related Issues: No Anes. Related Issues
== END 2023-08-07 09:21 | disposition home or self-care (01) | DRG 403 ==
LOC: HO.SSSA 09:49 → HO.S3 11:36
PROVIDERS: Physician Assistant; Admitting Provider Surgery; Visit Provider Surgery
PROC: 0DB64Z3 Excision of Stomach, Percutaneous Endoscopic Approach, Vertical (ICD-10-PCS; CPT 43845; principal; 2023-08-06 07:30)
DX: E66.01 Morbid (severe) obesity due to excess calories (principal); K74.00 Hepatic fibrosis, unspecified; G43.409 Hemiplegic migraine, not intractable, without status migrainosus; F32.A Depression, unspecified; G47.33 Obstructive sleep apnea (adult) (pediatric); Z68.41 Body mass index [BMI] 40.0-44.9, adult; K21.9 Gastro-esophageal reflux disease without esophagitis; F41.9 Anxiety disorder, unspecified; G25.81 Restless legs syndrome; Z86.73 Personal history of transient ischemic attack (TIA), and cerebral infarction without residual deficits; Z79.899 Other long term (current) drug therapy
CPT/HCPCS: 36415; 80048; 85014; 85018; 85025; 86850; 86900; 86901; 88307; 88342; A4649; C9088; C9145; J0131; J0690; J1100; J1170; J2250; J2371; J2405; J2550; J2704; J2795; J3010; J7120

== ENCOUNTER → 2023-08-06 05:57 | Outpatient (BNV) | payer OTHER, SELFPAY | PROVIDERS: Admitting Provider Surgery; Visit Provider Surgery | DX: E66.01 Morbid (severe) obesity due to excess calories (principal); Z68.41 Body mass index [BMI] 40.0-44.9, adult | CPT/HCPCS: 43659; 43775; 99024 ==

== ENCOUNTER 2023-08-13 15:43 | Outpatient (AMB) | payer OTHER, SELFPAY ==
[2023-08-13 16:00] VITALS: BP 132/68; PULSE 92; TEMP 36.2; O2SAT 98; BMI 40.8
--- NOTE | 2023-08-13 16:00 | A.OFFVIS_ITS ---
Intake VS Expanded 08/13/23 16:00 BP 132/68 Blood Pressure Location Rt brachial Blood Pressure Position Sitting Pulse 92 Pulse Source Palpation Temp 97.2 F Temperature Source Temporal Artery Scan Pulse Oximetry 98 Oxygen Delivery Method Room Air Height 5 ft 3 in Weight 230 lb 3.2 oz BMI 40.8 Body Fat % 43.3 Body Fat Mass 99.6 Fat Free Mass 130.6 Visceral Fat Rating 13 Body Water % 40.3 Body Water Mass 92.8 Muscle Mass/Score 123.8 Basal Metabolic Rate/Score 1,815 Intake Visit Reasons: (OV) PO LSG 08/06/23 Allergies No Known Allergies Allergy (Verified 07/22/23 14:14) HPI HPI Comments History of Present Illness Details 52-year-old female returns to the office today in follow-up. She is 7 days status post sleeve gastrectomy performed on 08/06/2023. She is tolerating 3 celebrate 4 in 1 shakes with 1 scoop each in approximately 36 oz of fluids. She has not yet moved her bowels but denies any abdominal pain, nausea, vomiting. Positive flatus. [facility] Medical History (Updated 08/09/23 @ 00:02 by [facility] Darosalind) CVA (cerebral vascular accident) Basilar migraine Hemiplegic migraine Anemia Syncope Nocturnal hypoxemia Sleep apnea Right carpal tunnel syndrome Left carpal tunnel syndrome Restless leg syndrome GERD (gastroesophageal reflux disease) Depression Anxiety Radiculopathy Prediabetes Surgical History (Updated 08/13/23 @ 13:50 by Radha Lugo [facility]) Hx of laparoscopic partial gastrectomy Hx of tonsillectomy History of carpal tunnel surgery Hx of breast reduction, elective History of bunionectomy Family History Mother Heart attack Father No problems noted. Sister Hypertension Brother No problems noted. Brother No problems noted. Daughter No problems noted. Son No problems noted. Social History Household Members: Spouse Housing: House Are you a primary career developer to a significant other at home: No Do you presently have visiting nurse or other home services: No Alcohol intake: current Alcohol intake frequency: does not drink Comment: occasional Patient Tobacco Use Status: Never used Tobacco Physical Exam GI Inspection: Yes incision (c, d, i) Assessment & Plan Assessment & Plan (1) S/P laparoscopic sleeve gastrectomy: Code(s): Z98.84 - Bariatric surgery status Plan: POD 7 s/p LSG on 08/06/[address] Garcia Weight loss prior to surgery was 49.5 pounds or 16.8 % TBWL. Original weight on 12/03/2022 was 293.2 pounds and op weight was 243.7 pounds. Be sure to text Dr Garcia exactly 1 week after surgery your weight from your home scale so he can adjust your meal plan. Continue meal plan until f/u w Maribel in 2 weeks May shower, no submersion in bath for another week Continue abdominal binder with activity and exercise for the next 2 weeks. Exercise prior to surgery was elliptical and stationary bike, may resume No abdominal exercises for 6 weeks post operatively Will be emailed link to post op video for review Reminded of the pace of drinking, 2 mL per minute, 1 oz/15 min. Colace 100 mg po BId Rx sent. Medications: New docusate sodium (Colace) 100 mg PO BID 60 caps 0RF Coding Level of Care Code Global (06446) Diagnoses S/P laparoscopic sleeve gastrectomy Z98.84
== END 2023-08-13 17:06 | disposition home or self-care (01) ==
PROVIDERS: Visit Provider Physician Assistant Surgical
DX: E66.01 Morbid (severe) obesity due to excess calories (principal); Z68.41 Body mass index [BMI] 40.0-44.9, adult; Z90.3 Acquired absence of stomach [part of]; Z98.84 Bariatric surgery status
CPT/HCPCS: 99024

== ENCOUNTER → 2023-08-13 15:43 | Outpatient (BNVA) | payer OTHER, SELFPAY | PROVIDERS: Visit Provider Physician Assistant Surgical | DX: Z98.84 Bariatric surgery status (principal) | CPT/HCPCS: 99212 ==

== ENCOUNTER → 2023-08-21 07:39 | Outpatient (BNVA) | payer OTHER, SELFPAY | PROVIDERS: Visit Provider Physician Assistant ==

== ENCOUNTER 2023-09-05 16:00 | Outpatient (AMB) | payer OTHER, SELFPAY ==
--- NOTE | 2023-09-05 15:58 | A.OFFVIS_ITS ---
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 No n/v/abd pain or reflux. Feels she needs an increaase in her ropinirole due to increased symptoms of restless leg. Will follow up with PCP. Meal and exercise plans per R: 8am - stopped Celebrate last week, now s uing Premier powder 2 scoops UAM 12 pm - same shake 4pm - Premier shake 1.5 scoops with UAM 5pm - 8pm - Zone Exercise - gym 5 d/wk - treadmill 4 miles or bike - has been counting all calories (not just active calories) [facility] Medical History (Updated 08/09/23 @ 00:02 by Background Darosalind) CVA (cerebral vascular accident) Basilar migraine Hemiplegic migraine Anemia Syncope Nocturnal hypoxemia Sleep apnea Right carpal tunnel syndrome Left carpal tunnel syndrome Restless leg syndrome GERD (gastroesophageal reflux disease) Depression Anxiety Radiculopathy Prediabetes Surgical History (Updated 08/13/23 @ 13:50 by Radha Lugo CMA) Hx of laparoscopic partial gastrectomy Hx of tonsillectomy History of carpal tunnel surgery Hx of breast reduction, elective History of bunionectomy Family History Mother Heart attack Father No problems noted. Sister Hypertension Brother No problems noted. Brother No problems noted. Daughter No problems noted. Son No problems noted. Social History Household Members: Spouse Housing: House Are you a primary healthcare applications analyst to a significant other at home: No Do you presently have visiting nurse or other home services: No Alcohol intake: current Alcohol intake frequency: does not drink Comment: occasional Patient Tobacco Use Status: Never used Tobacco Assessment & Plan Assessment & Plan (1) S/P laparoscopic sleeve gastrectomy: Code(s): Z98.84 - Bariatric surgery status Plan: Will start bariatic MVI now. No changes to meal or exercise plans. She will now count only active calroies burned by exercise. Next appt with PA in 4 weeks, will continue weekly texts with Dr Tran Teleluke Telehealth Location of provider rendering services: practice address Location of patient: address on file Patient Identification confirmed using: Name, : Yes Telehealth method: video Patient verbally consented to treatment: Yes Patient verbally consented to billing insurance company: Yes Patient informed of any privacy concerns related to visit: Yes Coding Level of Care Code Global (04784) Diagnoses S/P laparoscopic sleeve gastrectomy Z98.84
[2023-09-05 16:18] VITALS: BMI 38.8
== END 2023-09-05 16:42 | disposition home or self-care (01) ==
LOC: HO.HBS 16:00
PROVIDERS: Visit Provider Physician Assistant
DX: Z98.84 Bariatric surgery status (principal)
CPT/HCPCS: 99024

== ENCOUNTER → 2023-09-05 16:00 | Outpatient (BNVA) | payer OTHER, SELFPAY | PROVIDERS: Visit Provider Physician Assistant | DX: Z98.84 Bariatric surgery status (principal) | CPT/HCPCS: 99212 ==

== ENCOUNTER 2023-10-02 13:57 | Outpatient (AMB) | payer OTHER, SELFPAY ==
--- NOTE | 2023-10-02 09:55 | A.OFFVIS_ITS ---
Intake VS Expanded 10/02/23 09:56 Height 5 ft 3 in Weight 203 lb 12.8 oz BMI 36.1 Body Fat % 43.6 Body Fat Mass 89.4 Visceral Fat Rating 12 Body Water % 41.2 Body Water Mass 83.9 Muscle Mass/Score 105.6 Intake Visit Reasons: VIDEO PO LSG 08/06/23 Tobacco Warehouse Agent Required: No Allergies No Known Allergies Allergy (Verified 07/22/23 14:14) Medication List - Last Reconciled 10/02/23 by JOY Calloway amitriptyline 75 mg PO BEDTIME CPAP (CPAP Machine/Device) As directed divalproex (Depakote) 500 mg PO DAILY docusate sodium (Colace) 100 mg PO BID lorazepam 0.5 mg PO BEDTIME PRN pantoprazole 40 mg PO DAILY ropinirole ER 2 mg PO BEDTIME sucralfate 10 mL PO BID HPI HPI Comments History of Present Illness Details This?a?52?yo female who is s/p LSG without hiatal hernia repair on?08/06/2023. Presents for 2 month post op visit. Weight today is 203.8 pounds, with a BMI of 36.1. There has been a 89.4 pound weight loss,(initial weight 293.2 pounds) since starting the program on 12/03/2022 reflecting a 30.4% total body weight loss and a weight loss of 39.9 pounds since surgery (operative weight 243.7 pounds) reflecting a 16.3% TBWL since surgery. No complaints of nausea, emesis, abdominal pain or reflux. Reports infrequent but normal bowel movements every 1- 2 days and uses stool softeners regularly. states that frequently the shakes or bar causes nausea Present meal plan includes: Premier protein powder, 2 scoops in 8 oz almond milk, 7-9 another shake 12-2 ZP bar 5-8 Drinking: gatorade zero 24 oz ? Exercise routine includes: gym 4-5 days per week, treadmill, speed 3.2, incline 1-7, 300 calories walking outside, 1-2 miles 2 x per week, 250-350 calories plays soccer [facility] Medical History (Updated 08/09/23 @ 00:02 by Background Daemon) CVA (cerebral vascular accident) Basilar migraine Hemiplegic migraine Anemia Syncope Nocturnal hypoxemia Sleep apnea Right carpal tunnel syndrome Left carpal tunnel syndrome Restless leg syndrome GERD (gastroesophageal reflux disease) Depression Anxiety Radiculopathy Prediabetes Surgical History (Updated 08/13/23 @ 13:50 by Radha Lugo CMA) Hx of laparoscopic partial gastrectomy Hx of tonsillectomy History of carpal tunnel surgery Hx of breast reduction, elective History of bunionectomy Family History Mother Heart attack Father No problems noted. Sister Hypertension Brother No problems noted. Brother No problems noted. Daughter No problems noted. Son No problems noted. Social History Household Members: Spouse Housing: House Are you a primary direct care provider to a significant other at home: No Do you presently have visiting nurse or other home services: No Alcohol intake: current Alcohol intake frequency: does not drink Comment: occasional Patient Tobacco Use Status: Never used Tobacco Assessment & Plan Assessment & Plan (1) S/P laparoscopic sleeve gastrectomy: Code(s): Z98.84 - Bariatric surgery status Plan: Patient having nausea with her bars and protein shakes. We will trial a celebrate protein water, 1 shake and remove the bar at night, start food, 4 forks of protein (scrambled eggs or dark meat chicken or white flushed fish) and 2 forks of cooked vegetables. Add an additional 16 oz of water per day. Increase exercise at the gym with a goal of increasing incline to 10. Once she is comfortable with that, increase speed to 3.7. Once she is comfortable with that, increase incline to 14. Plan for a return to clinic at 3 months postop. Additionally, encouraged to text me weekly especially to identify tolerance to the protein Miner. Telehealth Telehealth Location of provider rendering services: practice address Location of patient: address on file Patient Identification confirmed using: Name, : Yes Telehealth method: voice only Patient verbally consented to treatment: Yes Patient verbally consented to billing insurance company: Yes Patient informed of any privacy concerns related to visit: Yes Minutes spent on Phone/Video with Pt.: 20 Coding Level of Care Code Global (87734) Diagnoses S/P laparoscopic sleeve gastrectomy Z98.84
[2023-10-02 09:56] VITALS: BMI 36.1
== END 2023-10-02 14:02 | disposition home or self-care (01) ==
LOC: HO.HBS 13:57
PROVIDERS: Visit Provider Physician Assistant Surgical
DX: Z98.84 Bariatric surgery status (principal)
CPT/HCPCS: 99024

== ENCOUNTER → 2023-10-02 13:57 | Outpatient (BNVA) | payer OTHER, SELFPAY | PROVIDERS: Visit Provider Physician Assistant Surgical | DX: E66.9 Obesity, unspecified (principal); Z68.36 Body mass index [BMI] 36.0-36.9, adult; Z90.3 Acquired absence of stomach [part of] | CPT/HCPCS: 99212 ==

== ENCOUNTER 2023-11-18 08:39 | Outpatient (AMB) | payer OTHER, SELFPAY ==
--- NOTE | 2023-11-18 08:34 | MHC.OFFVISWM ---
VS Expanded 11/18/23 08:35 Height 5 ft 3 in Weight 186 lb 9.6 oz BMI 33.1 Intake Visit Reasons: (TV) PO LSG 08/06/23 Extension Service Advisor Required: No Allergies No Known Allergies Allergy (Verified 07/22/23 14:14) Medication List - Last Reconciled 11/18/23 by JOY Calloway amitriptyline 75 mg PO BEDTIME clotrimazole 1% (Antifungal (clotrimazole)) 1 appl topical BID CPAP (CPAP Machine/Device) As directed divalproex (Depakote) 500 mg PO DAILY docusate sodium (Colace) 100 mg PO BID lorazepam 0.5 mg PO BEDTIME PRN ropinirole ER 2 mg PO BEDTIME HPI Comments Details: This?a?52?yo female who is s/p LSG without hiatal hernia repair on?08/06/2023. Presents for 3 month post op visit. Weight today is 186.8 pounds, with a BMI of 33.1. There has been a 106.4 pound weight loss,(initial weight 293.2 pounds) since starting the program on 12/03/2022 reflecting a 36.2% total body weight loss and a weight loss of 56.9 pounds since surgery (operative weight 243.7 pounds) reflecting a 23.3% TBWL since surgery. No complaints of nausea, emesis, abdominal pain or reflux. Reports infrequent but normal bowel movements every 1-2 days and uses stool softeners regularly. She reports that she is having a rash under her abdominal excess skin, causing irritation pain and soreness. She also notes an odor to this area. states that she has been having N/V with eating too much too quickly. States goal is 145 pounds Present meal plan includes: celebrate rebuild w water, 1 scoop each, 7-9, 1-3 celebrate bar 11-1 celebrate protein water, 20 gm 3-4 x per week meal is 5 forks protein and 5 forks salad/veg Drinking 42-48 oz additional water Exercise routine includes: gym 4-5 days per week, treadmill, speed 3.7, incline 1-10, 300 calories [facility] Medical History (Updated 11/18/23 @ 08:58 by JOY Calloway) CVA (cerebral vascular accident) Basilar migraine Hemiplegic migraine Anemia Syncope Nocturnal hypoxemia Sleep apnea Right carpal tunnel syndrome Left carpal tunnel syndrome Restless leg syndrome GERD (gastroesophageal reflux disease) Depression Anxiety Radiculopathy Prediabetes Surgical History (Updated 08/13/23 @ 13:50 by Radha Lugo CMA) Hx of laparoscopic partial gastrectomy Hx of tonsillectomy History of carpal tunnel surgery Hx of breast reduction, elective History of bunionectomy Family History Mother Heart attack Father No problems noted. Sister Hypertension Brother No problems noted. Brother No problems noted. Daughter No problems noted. Son No problems noted. Social History Household Members: Spouse Housing: House Are you a primary pediatric critical care nurse to a significant other at home: No Do you presently have visiting nurse or other home services: No Alcohol intake: current Alcohol intake frequency: does not drink Comment: occasional Patient Tobacco Use Status: Never used Tobacco Telehealth Telehealth Telehealth Platform: Telephone Location of provider rendering services: practice address Location of patient: address on file Patient Identification confirmed using: Name, : Yes Telehealth method: voice only Patient verbally consented to treatment: Yes Patient verbally consented to billing insurance company: Yes Patient informed of any privacy concerns related to visit: Yes Minutes spent on Phone/Video with Pt.: 15 Assessment & Plan Assessment & Plan (1) S/P laparoscopic sleeve gastrectomy: Code(s): Z98.84 - Bariatric surgery status Category: Surgical Plan: Current meal plan. Increase exercise to 450-500 calories burned per session. Continue to text weekly and with any questions or concerns. Add multivitamin in the evening (2) Excess skin: Code(s): L98.7 - Excessive and redundant skin and subcutaneous tissue Category: Medical Plan: Add p.r.n. clotrimazole Medications: New clotrimazole 1% (Antifungal (clotrimazole)) 1 appl topical BID 45 grams 2RF
[2023-11-18 08:35] VITALS: BMI 33.1
== END 2023-11-18 09:01 | disposition home or self-care (01) ==
LOC: HO.HBS 08:39
PROVIDERS: Visit Provider Physician Assistant Surgical
DX: L98.7 Excessive and redundant skin and subcutaneous tissue (principal); Z90.3 Acquired absence of stomach [part of]; Z98.84 Bariatric surgery status
CPT/HCPCS: 99213

== ENCOUNTER → 2023-11-18 08:39 | Outpatient (BNVA) | payer OTHER, SELFPAY | PROVIDERS: Visit Provider Physician Assistant Surgical ==

== ENCOUNTER 2023-12-30 09:30 | Outpatient (AMB) | payer OTHER, SELFPAY ==
--- NOTE | 2023-12-30 09:00 | MHC.OFFVISWM ---
VS Expanded 12/30/23 09:02 12/30/23 09:03 Height 5 ft 3 in 5 ft 3 in Weight 186 lb 9.6 oz 174 lb 9.6 oz BMI 33.1 30.9 Body Fat % 40 40 Intake Visit Reasons: (TV) PO LSG 08/06/23 Headhunter Required: No Allergies No Known Allergies Allergy (Verified 07/22/23 14:14) Medication List - Last Reconciled 12/30/23 by JOY Calloway clotrimazole 1% (Antifungal (clotrimazole)) 1 appl topical BID lorazepam 0.5 mg PO BEDTIME PRN ropinirole ER 2 mg PO BEDTIME HPI Comments Details: This?a?52?yo female who is s/p LSG without hiatal hernia repair on?08/06/2023. Presents for 5 month post op visit. Weight today is 174.6 pounds, with a BMI of 30.9. There has been a 118.6 pound weight loss,(initial weight 293.2 pounds) since starting the program on 12/03/2022 reflecting a 40.4% total body weight loss and a weight loss of 69.1 pounds since surgery (operative weight 243.7 pounds) reflecting a 28.3% TBWL since surgery. No complaints of nausea, emesis, abdominal pain or reflux. Reports infrequent but normal bowel movements every 1-2 days and uses stool softeners regularly. She reports that she is having a rash under her abdominal excess skin, causing irritation pain and soreness. She also notes an odor to this area. states that she had been having N/V with eating too much too quickly. She is learning to slow down and no longer has N/V States she has stopped using the celebrate rebuild. She is now starting w sm coffee, 2 celebrate protein constantino throughout the day, meal w 5 forks protein, 5 forks salad or veg, no bars Present meal plan includes: celebrate rebuild w water, 1 scoop each, 7-9, 1-3 celebrate bar 11-1 celebrate protein water, 20 gm 3-4 x per week meal is 5 forks protein and 5 forks salad/veg Drinking 56 oz additional water Exercise routine includes: vacation for the last 2 weeks so no gym but lots of swimming and walking. gym 4-5 days per week, treadmill, speed 3.7, incline 1-10, 300 calories [facility] Medical History (Updated 11/18/23 @ 08:58 by JOY Calloway) CVA (cerebral vascular accident) Basilar migraine Hemiplegic migraine Anemia Syncope Nocturnal hypoxemia Sleep apnea Right carpal tunnel syndrome Left carpal tunnel syndrome Restless leg syndrome GERD (gastroesophageal reflux disease) Depression Anxiety Radiculopathy Prediabetes Surgical History (Updated 08/13/23 @ 13:50 by Radha Lugo CMA) Hx of laparoscopic partial gastrectomy Hx of tonsillectomy History of carpal tunnel surgery Hx of breast reduction, elective History of bunionectomy Family History Mother Heart attack Father No problems noted. Sister Hypertension Brother No problems noted. Brother No problems noted. Daughter No problems noted. Son No problems noted. Social History Household Members: Spouse Housing: House Are you a primary manager home healthcare to a significant other at home: No Do you presently have visiting nurse or other home services: No Alcohol intake: current Alcohol intake frequency: does not drink Comment: occasional Patient Tobacco Use Status: Never used Tobacco Telehealth Telehealth Telehealth Platform: Telephone Location of provider rendering services: practice address Location of patient: address on file Patient Identification confirmed using: Name, : Yes Telehealth method: voice only Patient verbally consented to treatment: Yes Patient verbally consented to billing insurance company: Yes Patient informed of any privacy concerns related to visit: Yes Minutes spent on Phone/Video with Pt.: 18 Assessment & Plan Assessment & Plan (1) S/P laparoscopic sleeve gastrectomy: Code(s): Z98.84 - Bariatric surgery status Category: Surgical Plan: Patient overall has made good progress. She wishes to continue the meal plan that she had created including celebrate protein water, 20 g each, x2, as well as a meal with 5 forks of protein and 5 forks of vegetables. I have encouraged her to increase her exercise at the gym 2 daily, incorporating weight training prior to cardio. She will return to the office as scheduled for her in person six-month postop appointment. She has been encouraged to text weekly with her weight as well with any questions or concerns.
[2023-12-30 09:02] VITALS: BMI 33.1
[2023-12-30 09:03] VITALS: BMI 30.9
== END 2023-12-30 10:07 | disposition home or self-care (01) ==
LOC: HO.HBS 09:52
PROVIDERS: Visit Provider Physician Assistant Surgical
DX: E66.9 Obesity, unspecified (principal); Z68.30 Body mass index [BMI] 30.0-30.9, adult; Z90.3 Acquired absence of stomach [part of]; Z98.84 Bariatric surgery status
CPT/HCPCS: 99213

== ENCOUNTER → 2023-12-30 09:30 | Outpatient (BNVA) | payer OTHER, SELFPAY | PROVIDERS: Visit Provider Physician Assistant Surgical ==

== ENCOUNTER 2024-03-05 09:00 | Outpatient (AMB) | payer OTHER, SELFPAY ==
[2024-03-05 08:32] VITALS: BMI 27.9
--- NOTE | 2024-03-05 08:32 | A.OFFVIS_ITS ---
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 Presents for 7 month post op visit. Weight today is 157.4 pounds, with a BMI of 27.9. There has been a 135.8 pound weight loss,(initial weight 293.2 pounds) since starting the program on 12/03/2022 reflecting a 46.3% total body weight loss and a weight loss of 86.3 pounds since surgery (operative weight 243.7 pounds) reflecting a 35.4% TBWL since surgery. No complaints of nausea, emesis, abdominal pain or reflux. Reports infrequent but normal bowel movements every 1- 2 days and uses stool softeners regularly. She reports that she is having a rash under her abdominal excess skin, causing irritation pain and soreness. She also notes an odor to this area. states that she had been having N/V with eating too much too quickly. She is learning to slow down and no longer has N/V States she is feeling like a million dollars. Present meal plan includes: celebrate protein water, 20 gm x 2 meal is 5 forks protein and 5 forks salad/veg Drinking 56 oz additional water Exercise routine includes: gym 4 days per week, treadmill, speed 3.7, incline 1-10, 300 calories [facility] Medical History CVA (cerebral vascular accident) Basilar migraine Hemiplegic migraine Anemia Syncope Nocturnal hypoxemia Sleep apnea Right carpal tunnel syndrome Left carpal tunnel syndrome Restless leg syndrome GERD (gastroesophageal reflux disease) Depression Anxiety Radiculopathy Prediabetes Surgical History Hx of laparoscopic partial gastrectomy Hx of tonsillectomy History of carpal tunnel surgery Hx of breast reduction, elective History of bunionectomy Family History Mother Heart attack Father No problems noted. Sister Hypertension Brother No problems noted. Brother No problems noted. Daughter No problems noted. Son No problems noted. Social History Household Members: Spouse Housing: House Are you a primary resident care provider to a significant other at home: No Do you presently have visiting nurse or other home services: No Alcohol intake: current Alcohol intake frequency: does not drink Comment: occasional Patient Tobacco Use Status: Never used Tobacco Telehealth Telehealth Telehealth Platform: Telephone Location of provider rendering services: practice address Location of patient: address on file Patient Identification confirmed using: Name, : Yes Telehealth method: voice only Patient verbally consented to treatment: Yes Patient verbally consented to billing insurance company: Yes Patient informed of any privacy concerns related to visit: Yes Minutes spent on Phone/Video with Pt.: 12 Assessment & Plan Assessment & Plan (1) S/P laparoscopic sleeve gastrectomy: Code(s): Z98.84 - Bariatric surgery status Category: Surgical Plan: Overall doing very well. Excellent weight loss. She wishes to continue her current meal plan as she is very satisfied with this. Discussed the importance of incorporating cardiovascular activities as well as weight training. She will continue her current plan. Follow-up in the office as scheduled. Encouraged to continue to text weekly as she finds this very helpful in terms of support. Text if any questions.
== END 2024-03-05 10:37 | disposition home or self-care (01) ==
LOC: HO.HBS 09:28
PROVIDERS: Visit Provider Physician Assistant Surgical
DX: E66.3 Overweight (principal); Z68.27 Body mass index [BMI] 27.0-27.9, adult; Z90.3 Acquired absence of stomach [part of]; Z98.84 Bariatric surgery status
CPT/HCPCS: 99213

== ENCOUNTER → 2024-03-05 09:00 | Outpatient (BNVA) | payer OTHER, SELFPAY | PROVIDERS: Visit Provider Physician Assistant Surgical | DX: Z98.84 Bariatric surgery status (principal) ==

== ENCOUNTER 2024-04-13 09:30 | Outpatient (AMB) | payer OTHER, SELFPAY ==
[2024-04-13 09:00] VITALS: BMI 27.5
--- NOTE | 2024-04-13 09:00 | MHC.OFFVISWM ---
VS Expanded 04/13/24 09:00 Height 5 ft 3 in Weight 155 lb BMI 27.5 Body Fat % 36.6 Visceral Fat Rating 9 Body Water Mass 46.2 Muscle Mass/Score 90.8 Intake Visit Reasons: (TV) PO LSG 08/06/23 Gasoline Tester Required: No Allergies No Known Allergies Allergy (Verified 07/22/23 14:14) Medication List - Last Reconciled 04/13/24 by JYO Calloway clotrimazole 1% (Antifungal (clotrimazole)) 1 appl topical BID lorazepam 0.5 mg PO BEDTIME PRN ropinirole ER 2 mg PO BEDTIME HPI Comments Details: This?a?53?yo female who is s/p LSG without hiatal hernia repair on?08/06/2023. Presents for 8 month post op visit. Weight today is 155 pounds, with a BMI of 27.5. There has been a 138.2 pound weight loss,(initial weight 293.2 pounds) since starting the program on 12/03/2022 reflecting a 47.1% total body weight loss and a weight loss of 88.7 pounds since surgery (operative weight 243.7 pounds) reflecting a 36.3% TBWL since surgery. No complaints of nausea, emesis, abdominal pain or reflux. Reports infrequent but normal bowel movements every 1-2 days and uses stool softeners regularly. She reports that she is having a rash under her abdominal excess skin, causing irritation pain and soreness. She also is having trouble with the excess skin of her arms causing rash and discomfort with soreness, especially with activity. She has difficulty fitting clothing and she has soreness with prolonged overhead activity such as shampooing her hair or brushing her hair. She would have to switch hands frequently to account for the discomfort. She also has excess skin of her upper thighs causing soreness and discomfort especially with activity and exercise. She also notes an odor to this area. states that she is at a slight stand still. She has not lost in the last couple of weeks. States she is feeling like a million dollars. Present meal plan includes: celebrate protein water, 20 gm x 2 meal is 5 forks protein and 5 forks salad/veg Drinking 56 oz additional water Exercise routine includes: gym 3-4 days per week, treadmill, speed 3.7, incline 1-10, 700-900 calories per week [facility] Medical History CVA (cerebral vascular accident) Basilar migraine Hemiplegic migraine Anemia Syncope Nocturnal hypoxemia Sleep apnea Right carpal tunnel syndrome Left carpal tunnel syndrome Restless leg syndrome GERD (gastroesophageal reflux disease) Depression Anxiety Radiculopathy Prediabetes Surgical History Hx of laparoscopic partial gastrectomy Hx of tonsillectomy History of carpal tunnel surgery Hx of breast reduction, elective History of bunionectomy Family History Mother Heart attack Father No problems noted. Sister Hypertension Brother No problems noted. Brother No problems noted. Daughter No problems noted. Son No problems noted. Social History Household Members: Spouse Housing: House Are you a primary care transitions manager to a significant other at home: No Do you presently have visiting nurse or other home services: No Alcohol intake: current Alcohol intake frequency: does not drink Comment: occasional Patient Tobacco Use Status: Never used Tobacco Assessment & Plan Assessment & Plan (1) S/P laparoscopic sleeve gastrectomy: Code(s): Z98.84 - Bariatric surgery status Category: Surgical Plan: Patient will increase her days of the gym and track calories burned as well as weight loss to assess this as the etiology for the stall. She will text her weights weekly and continue her current meal plan. Return to clinic as scheduled. (2) Excess skin: Code(s): L98.7 - Excessive and redundant skin and subcutaneous tissue Category: Medical Plan: Excess skin of her arms, abdomen, thighs in the setting of significant weight loss. To date she has lost 138 lb. This has caused a significant impact on her life including discomfort, recurrent rashes and ill fitting clothing. We will continue to monitor, treat with antifungal creams as indicated and consider submission for medically necessary skin removal surgery in the future.
== END 2024-04-13 10:00 | disposition home or self-care (01) ==
LOC: HO.HBS 09:57
PROVIDERS: Visit Provider Physician Assistant Surgical
DX: L98.7 Excessive and redundant skin and subcutaneous tissue (principal); Z90.3 Acquired absence of stomach [part of]; Z98.84 Bariatric surgery status
CPT/HCPCS: 99213

== ENCOUNTER → 2024-04-13 09:30 | Outpatient (BNVA) | payer OTHER, SELFPAY | PROVIDERS: Visit Provider Physician Assistant Surgical ==

== ENCOUNTER 2024-05-25 09:30 | Outpatient (AMB) | payer OTHER, SELFPAY ==
--- NOTE | 2024-05-25 08:02 | MHC.OFFVISWM ---
VS Expanded 05/25/24 08:03 Height 5 ft 3 in Weight 151 lb 8 oz BMI 26.8 Body Fat % 36 Visceral Fat Rating 8 Body Water % 46.5 Muscle Mass/Score 90 Intake Visit Reasons: (TV) PO LSG 08/06/23 Clinical Documentation Nurse Required: No Allergies No Known Allergies Allergy (Verified 07/22/23 14:14) Medication List - Last Reconciled 05/25/24 by JOY Calloway clotrimazole 1% (Antifungal (clotrimazole)) 1 appl topical BID lorazepam 0.5 mg PO BEDTIME PRN ropinirole ER 2 mg PO BEDTIME HPI Comments Details: This?a?53?yo female who is s/p LSG without hiatal hernia repair on?08/06/2023. Presents for 10 month post op visit. Weight today is 151.8 pounds, with a BMI of 26.8. There has been a 141.4 pound weight loss,(initial weight 293.2 pounds) since starting the program on 12/03/2022 reflecting a 48.2% total body weight loss and a weight loss of 91.9 pounds since surgery (operative weight 243.7 pounds) reflecting a 37.7% TBWL since surgery. No complaints of nausea, emesis, abdominal pain or reflux. Reports infrequent but normal bowel movements every 1-2 days and uses stool softeners regularly. She reports that she is having a rash under her abdominal excess skin, causing irritation pain and soreness. She also is having trouble with the excess skin of her arms causing rash and discomfort with soreness, especially with activity. She has difficulty fitting clothing and she has soreness with prolonged overhead activity such as shampooing her hair or brushing her hair. She would have to switch hands frequently to account for the discomfort. She also has excess skin of her upper thighs causing soreness and discomfort especially with activity and exercise. She also notes an odor to this area. She has been using the clotrimazole. She has had resolution of the rash with the cream but recurrence shortly after completion of a course. States she is feeling like a million dollars. Satisfied with her meal plan Present meal plan includes: celebrate protein water, 20 gm x 2 meal is 5 forks protein and 5 forks salad/veg Drinking 56 oz additional water Exercise routine includes: gym 4-5 days per week, weights then cardio, treadmill, speed 3.7, incline 1-10, 300 tricia calories per session. [facility] Medical History CVA (cerebral vascular accident) Basilar migraine Hemiplegic migraine Anemia Syncope Nocturnal hypoxemia Sleep apnea Right carpal tunnel syndrome Left carpal tunnel syndrome Restless leg syndrome GERD (gastroesophageal reflux disease) Depression Anxiety Radiculopathy Prediabetes Surgical History Hx of laparoscopic partial gastrectomy Hx of tonsillectomy History of carpal tunnel surgery Hx of breast reduction, elective History of bunionectomy Family History Mother Heart attack Father No problems noted. Sister Hypertension Brother No problems noted. Brother No problems noted. Daughter No problems noted. Son No problems noted. Social History Household Members: Spouse Housing: House Are you a primary critical care nurse specialist to a significant other at home: No Do you presently have visiting nurse or other home services: No Alcohol intake: current Alcohol intake frequency: does not drink Comment: occasional Patient Tobacco Use Status: Never used Tobacco Telehealth Telehealth Telehealth Platform: Telephone Location of provider rendering services: practice address Location of patient: address on file Patient Identification confirmed using: Name, : Yes Telehealth method: voice only Patient verbally consented to treatment: Yes Patient verbally consented to billing insurance company: Yes Patient informed of any privacy concerns related to visit: Yes Minutes spent on Phone/Video with Pt.: 15 Assessment & Plan Assessment & Plan (1) S/P laparoscopic sleeve gastrectomy: Code(s): Z98.84 - Bariatric surgery status Category: Surgical Plan: Doing well, making very good progress. Continue current meal plan as she is satisfied with this. Continue exercises she is able although increase incline as she is able up to 13. Continue doing weight training then cardio, additionally, increase goal of calories burned to 400 per session. Return to clinic for her 1 year postop appointment. (2) Excess skin: Code(s): L98.7 - Excessive and redundant skin and subcutaneous tissue Category: Medical Plan: Given patient's 141 lb weight loss, or 48% total body weight loss, she has excess skin of her abdomen, arms and thighs. Given the negative impact on her activities of daily living, recurrence of rash despite treatment with prescriptive medications, she would be appropriate for medically necessary skin removal surgery. We will continue to monitor, and submit to her insurance company once requirements are met.
[2024-05-25 08:03] VITALS: BMI 26.8
== END 2024-05-25 10:00 | disposition home or self-care (01) ==
LOC: HO.HBS 09:53
PROVIDERS: Visit Provider Physician Assistant Surgical
DX: L98.7 Excessive and redundant skin and subcutaneous tissue (principal); Z98.84 Bariatric surgery status
CPT/HCPCS: 99213

== ENCOUNTER 2024-09-10 16:31 | Outpatient (AMB) | payer OTHER, SELFPAY ==
--- NOTE | 2024-09-10 16:34 | MHC.OFFVISWM ---
VS Expanded 09/10/24 16:35 BP 126/79 Blood Pressure Location Lt brachial Blood Pressure Position Sitting Pulse 73 Pulse Oximetry 100 Height 5 ft 3 in Weight 142 lb 9.6 oz BMI 25.3 Body Fat % 21.8 Body Fat Mass 1.0 Fat Free Mass 111.4 Visceral Fat Rating 5.0 Body Water % 55.6 Body Water Mass 79.2 Muscle Mass/Score 105.6 Basal Metabolic Rate/Score 1,459 Intake Visit Reasons: (OV) PO LSG 08/06/23 Slicing Machine Feeder Required: No Allergies No Known Allergies Allergy (Verified 07/22/23 14:14) Medication List - Last Reconciled 09/10/24 by JOY Calloway clotrimazole 1% (Antifungal (clotrimazole)) 1 appl topical BID lorazepam 0.5 mg PO BEDTIME PRN pramipexole mg PO DAILY ropinirole ER 2 mg PO BEDTIME HPI Comments Details: This?a?53?yo female who is s/p LSG without hiatal hernia repair on?08/06/2023. Presents for 1 year 1 month post op visit. Weight today is 142.6 pounds, with a BMI of 25.2. There has been a 150.6 pound weight loss,(initial weight 293.2 pounds) since starting the program on 12/03/2022 reflecting a 51.3% total body weight loss and a weight loss of 101.1 pounds since surgery (operative weight 243.7 pounds) reflecting a 41.4% TBWL since surgery. No complaints of nausea, emesis, abdominal pain or reflux. Reports infrequent but normal bowel movements every 1-2 days and uses stool softeners regularly. taking celebrate mvi will start tricia +D She reports that she is having a rash under her abdominal excess skin, causing irritation pain and soreness. She also is having trouble with the excess skin of her arms causing rash and discomfort with soreness, especially with activity. She has difficulty fitting clothing and she has soreness with prolonged overhead activity such as shampooing her hair or brushing her hair. She would have to switch hands frequently to account for the discomfort. She also has excess skin of her upper thighs causing soreness and discomfort especially with activity and exercise. She also notes an odor to this area. She has been using the clotrimazole cream. She has had resolution of the rash with the cream but recurrence shortly after completion of a course. Patient also complains of pain which is difficult to describe to the medial aspect of both thighs when laying on her left side or right side. No significant pain when lying supine. Pain also noted with prone position. She is going to try to identify exactly where the pain is and what it feels like to her over the next coming weeks. Satisfied with her meal plan Present meal plan includes: celebrate protein water, 20 gm x 2 meal is 5 forks protein and 5 forks salad/veg Drinking 32 oz additional water Exercise routine includes: gym 4 days per week, weights then cardio, treadmill, speed 3.7, incline 1-10, 400 tricia calories per session. Any post op complications: none JOSE: resolved DM: never HTN: never Hyperlipidemia: never GERD:?0-5 scale ??0 = no symptoms ??1 = symptoms noticeable but not bothersome 2 =symptoms bothersome but not daily ? 3 = symptoms bothersome and daily 4 = symptoms affect daily activities 5 = symptoms are incapacitating, unable to do daily activities ? How bad is the heartburn: 0 ? Heartburn while lying down: 0 ? Heartburn when standing up: 0 ? Heartburn after meals: 0 ? Does heartburn change your diet: 0 ? Does heartburn wake you up from sleep: 0 ? Do you have difficulty swallowin ? Do you have pain with swallowin ? If you take medicine for your reflux, does this affect your daily life: 0 Satisfaction with present condition - satisfied or not satisfied: very satisfied [facility] Medical History CVA (cerebral vascular accident) Basilar migraine Hemiplegic migraine Anemia Syncope Nocturnal hypoxemia Sleep apnea Right carpal tunnel syndrome Left carpal tunnel syndrome Restless leg syndrome GERD (gastroesophageal reflux disease) Depression Anxiety Radiculopathy Prediabetes Surgical History Hx of laparoscopic partial gastrectomy Hx of tonsillectomy History of carpal tunnel surgery Hx of breast reduction, elective History of bunionectomy Family History Mother Heart attack Father No problems noted. Sister Hypertension Brother No problems noted. Brother No problems noted. Daughter No problems noted. Son No problems noted. Social History Household Members: Spouse Housing: House Are you a primary health care marketing manager to a significant other at home: No Do you presently have visiting nurse or other home services: No Alcohol intake: current Alcohol intake frequency: does not drink Comment: occasional Patient Tobacco Use Status: Never used Tobacco Physical Exam Vital Signs: Last Vital Signs Pulse 73 09/10/24 16:35 BP 126/79 09/10/24 16:35 Pulse Ox 100 09/10/24 16:35 Const General: cooperative and no acute distress Orientation/consciousness: patient oriented x3 Resp Effort & Inspection: normal respiratory effort Auscultation: clear to auscultation bilaterally Cardio Rate: regular rate Rhythm: regular rhythm GI Inspection: Yes normal to inspection and Yes incision (well healed) Palpation (GI): Soft to palpation and no masses Skin Other: Pannus grade 2 of the abdomen. No active rash. Excess skin noted of her arms as well without active rash. Some excess skin noted of her medial thighs. No active rash. No identifiable overlying skin color changes. No tenderness to palpation. Neuro General: patient oriented x3 Assessment & Plan Assessment & Plan (1) S/P laparoscopic sleeve gastrectomy: Code(s): Z98.84 - Bariatric surgery status Category: Surgical Plan: Patient very satisfied with current meal plan. We will check 1 year postop labs. She will attempt to identify the type of pain, distribution of pain, any exacerbating or alleviating factors. We will have her return to the office in approximately 5 months for her 18 month postop appointment. (2) Excess skin: Code(s): L98.7 - Excessive and redundant skin and subcutaneous tissue Category: Medical Plan: Given patient's greater than 150 lb weight loss or 51.3% total body weight loss, she has excess skin of her abdomen, arms and some thighs. We will continue to monitor clinically. She has had recalcitrant rash treated with antifungal creams. She makes every effort to keep the area clean and dry. This has impacted her activities of daily living given excess of hygiene requirements. She is using antifungal cream as needed. We will continue to monitor frequency of rash. Consideration for adding steroid and oral antibiotics if necessary. She will likely need medically necessary skin removal surgery. Orders: Orders Hemoglobin A1c Today Z98.84 - Bariatric surgery status Comprehensive Met. Panel Today Z98.84 - Bariatric surgery status Zinc Today Z98.84 - Bariatric surgery status C Reactive Protein Today Z98.84 - Bariatric surgery status Vitamin B1 Today Z98.84 - Bariatric surgery status Ferritin Today Z98.84 - Bariatric surgery status Vitamin D 25-OH Total Today Z98.84 - Bariatric surgery status Insulin Today Z98.84 - Bariatric surgery status Complete Blood Count Auto Diff Today Z98.84 - Bariatric surgery status Lipid Panel Today Z98.84 - Bariatric surgery status IRON PROFILE Today Z98.84 - Bariatric surgery status Vitamin B12 and Folate Today Z98.84 - Bariatric surgery status Vitamin A Today Z98.84 - Bariatric surgery status TSH reflex Free T4 Today Z98.84 - Bariatric surgery status
[2024-09-10 16:35] VITALS: BP 126/79; PULSE 73; O2SAT 100; BMI 25.3
== END 2024-09-10 17:10 | disposition home or self-care (01) ==
LOC: HO.HBS 16:32
PROVIDERS: Visit Provider Physician Assistant Surgical
DX: L98.7 Excessive and redundant skin and subcutaneous tissue (principal); Z90.3 Acquired absence of stomach [part of]; Z98.84 Bariatric surgery status
CPT/HCPCS: 99213

== ENCOUNTER 2025-02-04 07:58 | Outpatient (REF) | payer OTHER, SELFPAY ==
[2025-02-04 09:36] LABS: MANUAL DIFF FLAG NO
[2025-02-04 10:15] LABS: Hematocrit 36.0 % (37.0-47.0); Hemoglobin 11.1 g/dl (12.0-16.0); Imm Gran Abs Auto 0.01 X10*3/uL (0.00-0.03); Imm Gran Pct Auto 0.2 % (0.0-0.4); Lymphocytes Absolute Auto 1.3 X10*3/uL (1.2-4.9); Mean Corpuscular HGB Conc 30.8 g/dl (31.0-35.0); Mean Corpuscular Hemoglobin 19.4 pg (27.0-33.0); NRBC Abs Auto 0.000 X10*3/uL (0.0-0.012); NRBC Pct Auto 0.0 /100WBC (0.0-0.2); Platelet Count 221 X10*3/uL (160-400); Red Blood Count 5.71 X10*6/uL (4.20-5.50); White Blood Count 4.8 X10*3/uL (4.8-10.8)
[2025-02-04 10:20] LABS: Mean Corpuscular Volume 63.0 fL (80.0-98.0)
[2025-02-04 10:59] LABS: Alanine Aminotransferase 12 U/L (0-31); Albumin Level 4.4 g/dL (3.5-5.0); Alkaline Phosphatase 53 U/L (39-117); Anion Gap 11 (12-20); Aspartate Amino Transferase 16 U/L (5-31); Blood Urea Nitrogen 14 mg/dL (9-16); Calcium 9.1 mg/dL (8.4-10.2); Carbon Dioxide 29 mmol/L (22-29); Chloride 108 mmol/L (96-108); Cholesterol 140 mg/dL (<200); Estimated Glomerular Filt Rate > 60; HDL Cholesterol 42 mg/dL (>40); Iron 124 mcg/dL (30-160); Percent Iron Saturation 58 % (15-50); Potassium 3.8 mmol/L (3.3-5.1); Sodium 144 mmol/L (135-145); Total Iron Binding Capacity 214 mcg/dL (228-428); Total Protein 6.6 g/dL (6.5-8.0); Triglycerides 74 mg/dL (<150); Unsaturated Iron Binding 90 ug/dL
[2025-02-04 11:03] LABS: Hemoglobin A1C 98.9315 umol/L; Total Hemoglobin (HGBA1C) 2997.8520 umol/L
[2025-02-04 11:14] LABS: Folate 9.3 ng/mL (> or = 4.0); Vitamin B12 534 pg/mL (200-900)
[2025-02-04 11:16] LABS: Ferritin 139 ng/mL (10-250)
== END 2025-02-04 07:59 | disposition home or self-care (01) ==
LOC: HO.LAB 07:58
PROVIDERS: PCP Physician Assistant; Visit Provider Physician Assistant Surgical
DX: Z98.84 Bariatric surgery status (principal); L98.7 Excessive and redundant skin and subcutaneous tissue; Z13.1 Encounter for screening for diabetes mellitus; Z13.6 Encounter for screening for cardiovascular disorders; Z79.899 Other long term (current) drug therapy
CPT/HCPCS: 36415; 80053; 80061; 82306; 82607; 82728; 82746; 83036; 83525; 83540; 84425; 84443; 84590; 84630; 85025; 86140

== ENCOUNTER 2025-02-04 07:58 | Outpatient (AMB) | payer OTHER, SELFPAY ==
--- OUTSIDE RECORDS SUMMARY | 2025-02-04 08:02 | XMS_ITS | Clinical Summary ---
Author Organization [facility] Address [address] [place] [id number] Phone Care Team Providers Care Oracle Scm Consultant Name Role Phone Pcp, Not Required Primary Care Provider Unavaila ble Allergies No known active allergies Medications No known medications Social History Tobacco Use Types Packs/Day Years Used Date Smoking Tobacco: Never Smokeless Tobacco: Never Education Answer Date Recorded Are you interested in more education? Not on lon e 10/13/2022 Are you concerned about learning? Not on file 10/13/2022 No 10/13/2022 No 10/13/2022 Digital Access Answer Date Recorded No 11/10/2022 No 11/10/2022 No 11/10/2022 Reliable internet access at home? Not on file 11/10/2022 Device with a working camera? Not on file Comments Unknown Sex and Gender Information Value Date Recorded Sex Assigned at Female 11/23/2020 10:45 AM EDT Legal Sex Female 10:42 AM EDT Gender Identity Female 11/23/2020 10:45 AM EDT Sexual Orientation Straight 11/23/2020 10 :45 AM EDT Last Filed Vital Signs Vital Sign Reading Time Taken Comments Blood Pressure 123/85 05/19/2021 10:01 AM EST Pulse 100 05/19/2021 10:01 AM EST Temperature 35.7 C (96.3 F) 05/19/2021 10:01 AM EST Respiratory Rate - - Oxygen Saturation 99% 05/19/2021 10:01 AM EST Inhaled Oxygen Concentration - - Weight 120.2 kg (265 lb) 05/19/2021 10:01 AM EST Height 165.1 cm (5' 5 ) 05/19/2021 10:01 AM EST Body Mass Index 44.1 05/19/2021 10:01 AM EST Plan of Treatment Health Maintenance Due Date Last Done Comments LIPID PANEL 1970 DEPRESSION SCREENING 1982 HEPATITIS C SCREENING 1988 PAP SMEAR 12/15/1991 MAMMOGRAM 2010 COLOGUARD 12/15/2015 COLONOSCOPY 12/15/2015 COLORECTAL CANCER SCREENING 12/15/2015 FIT TEST 12/15/2015 FOBT 12/15/2015 SIGMOIDOSCOPY 12/15/2015 VIRTUAL COLONOSCOPY 12/15/2015 Adult Td,Tdap Booster 12/17/2017 12/18/2007 PNEUMOCOCCAL VACCINES (50+ y ears) (1 of 1 - PCV) 2020 ZOSTER VACCINES (1 of 2) 2020 COVID-19 VACCINE (2 - 2023-2 5 season) 2024 04/11/2021 HIV ONE-TIME SCREENING (18-6 5 YEARS) Completed 01/17/2021 SMOKING STATUS SCREENING (On ce After 26 Yrs) Completed 05/19/2021 HEPATITIS A VACCINES Aged Out No long er eligible based on patient's age to complete this topic HIB VACCINES Aged Out No longer eligi ble based on patient's age to complete this topic MENINGOCOCCAL VACCINES (ACWY) Aged Out No longer eligible based on patient's age to complete this topic MENINGOCOCCAL VACCINES (B) Aged Out N o longer eligible based on patient's age to complete this topic Medical Devices Not on file [place] [address] [place] [address] [place], [place] [address] [place] [address] [place] [address] [employer] [place] [address] [place] [address] [email or web address] [place] [address] [place] [address] [email or web address] Care Teams Oracle Scm Consultant Relationship Specialty Start Date End Date Pcp, Not Required [address] [place] [id number] PCP - General 11/23/20 Additional Source Comments The information contained in this document represents components of the legal health record. It is not the complete legal health record.[facility]
--- OUTSIDE RECORDS SUMMARY | 2025-02-04 08:02 | XMS_ITS | Clinical Summary ---
Author Organization [facility] Address [address] [place] [address] Care Team Providers Care Home Energy Consultant Supervisor Name Role Phone Wanda Alicia MD Primary Care Provider [phone] Allergies No known active allergies Medications Medication Sig Dispensed Refills Start Date End Date Status Ascorbic Acid (VITAMIN C) 1000 MG tablet Take 1,000 mg by mouth daily. 0 Active ferrous sulfate 325 (65 FE) MG tablet Take 325 mg by mouth every morning with breakfast. 0 Active docusate sodium (COLACE) 100 MG capsule Take 100 mg by mouth 2 (two) times a day. 0 Active traMADol (ULTRAM) 50 MG tablet Take 50 mg by mouth every 8 (eight) hours as needed for pain. 30 tablet 0 06/25/2019 Active Active Problems No known active problems Family History Medical History Relation Name Comments Brain cancer Father Lung cancer Father Heart failure Sister Relation Name Status Comments Brother (Age 23) mva Father Mother Alive Sister (Age 41) heart/lung transplant, pulm HTN Social History Tobacco Use Types Packs/Day Years Used Date Smoking Tobacco: Never Smokeless Tobacco: Never Alcohol Use Standard Drinks/Week Comments No 0 (1 standard drink = 0.6 oz pur e alcohol) Sex and Gender Information Value Date Recorded Sex Assigned at Not on file Gender Identity Not on file Sexual Orientation Not on file Job Start Date Occupation Industry Not on file Not on file Not on file Last Filed Vital Signs Vital Sign Reading Time Taken Comments Blood Pressure 139/69 07/07/2019 3:56 PM EST Pulse 70 07/07/2019 3:56 PM EST Temperature 36.8 C (98.2 F) 07/07/2019 3:56 PM EST Respiratory Rate - - Oxygen Saturation - - Inhaled Oxygen Concentration - - Weight 100.8 kg (222 lb 2.4 oz) 07/07/2019 3:56 PM EST Height 167.6 cm (5' 6 ) 07/07/2019 3:56 PM EST Body Mass Index 35.86 07/07/2019 3:56 PM EST Plan of Treatment Health Maintenance Due Date Last Done Comments Hepatitis B Vaccines (1 of 3 - 3-dose series) 1970 Hepatitis C Screening 1970 COVID-19 Vaccine (#1) 06/15/1971 Depression Screening 1982 Preventative Health Evaluation 1988 Cervical Cancer Screening (P ap Smear) 12/15/1991 Colon Cancer Screening (Colonoscopy) 12/15/2015 DTap / Tdap / Td (2 - Td or Tdap) 12/17/2017 008 Breast Cancer Screening (Mammogram) 2020 Shingrix-Zoster Vaccine (1 of 2) 2020 Influenza Vaccine (#1) 2025 03/29/2016 Pneumococcal Vaccine Aged Out No long er eligible based on patient's age to complete this topic RSV Ped < 20 months Aged Out No longe r eligible based on patient's age to complete this topic Care Teams Home Energy Consultant Supervisor Relationship Specialty Start Date End Date Wanda Alicia MD PCP - General Internal Medicine 03/31/19
--- OUTSIDE RECORDS SUMMARY | 2025-02-04 08:02 | XMS_ITS ---
Author Name [facility] Organization Unknown Encounters Encounter Type Encounter Reason Primary Diagnosis Location Date Ambulatory [facility] 04/23/2024 Ambulatory [facility] 04/23/2024 Ambulatory [facility] 04/23/2024 Care Team Organization Name Specialty Phone Email Start Date End Da te [facility] 04/24/2022 02/03/20 24
--- OUTSIDE RECORDS SUMMARY | 2025-02-04 08:02 | XMS_ITS | Clinical Summary ---
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 EDT Impressions 01/10/2025 8:32 AM EDT Impression: No active pulmonary process identified. Telerad JOY ([id number]) -------- FINAL REPORT -------- Dictated By: Gregoria Linn Dictated Date: 01/10/2025 08:31 ET Assigned Physician: Gregoria Linn Reviewed and Electronically Signed By: Gregoria Linn Signed Date: 01/10/2025 08:32 ET Workstation ID: [id number] Transcribed By: Self Edit Transcribed Date: 01/10/2025 08:31 ET Narrative 01/10/2025 8:32 AM EDT History: Stroke. Comparison: 06/12/23 Findings: Normal AP upright chest at 9:15 PM. The cardiac silhouette is normal in size. Hilar contours and pulmonary vascularity are within normal limits. The lungs are clear. The costophrenic angles are sharp. Surgical clips are seen in the epigastric region. Procedure Note Gregoria Linn MD - 01/10/2025 History: Stroke. Comparison: 06/12/23 Findings: Normal AP upright chest at 9:15 PM. The cardiac silhouette is normal insize. Hilar contours and pulmonary vascularity are within normal limits.The lungs are clear. The costophrenic angles are sharp. Surgical clips are seen in the epigastric region. IMPRESSION: Impression: No active pulmonary process identified. Telerad PA ([id number]) -------- FINAL REPORT -------- Dictated By: Gregoria Linn Dictated Date: 01/10/2025 08:31 ET Assigned Physician: Gregoria Linn Reviewed and Electronically Signed By: Gregoria Linn Signed Date: 01/10/2025 08:32 ET Workstation ID: [id number] Transcribed By: Self Edit Transcribed Date: 01/10/2025 08:31 ET us Abhijeet Rock MD IMG XR PROCEDURES Final Res ult * ECG 12 lead (01/09/2025 8:29 PM EDT) Ventricular Rate ECG 73 BPM GEMUSE Atrial Rate 73 BPM GEMUSE P-R Interval 150 ms GEMUSE QRS Duration 86 ms GEMUSE Q-T Interval 396 ms GEMUSE QTc 436 ms GEMUSE P Wave [place] 68 degrees GEMUSE R [place] 22 degrees GEMUSE T [place] 66 degrees GEMUSE ECG Interpretation Normal sinus rhythm When compared with ECG of 12-DEC-2023 23:17, Nonspecific T wave abnormality has replaced inverted T waves in Anterior leads Confirmed by MARILYN BARRIOS ([id number]) on 01/10/2025 5:46:46 PM GEMUSE 01/09/2025 8:29 PM EDT 01/10/2025 5:46 PM EDT us Trace Valenzuela MD ECG ORDERABLES Final Result GEMUSE * CT Head Stroke wo Contrast (01/09/2025 8:21 PM EDT) Anatomical Region Laterality Modality Head and Neck Computed Tomogra phy 01/09/2025 8:57 PM EDT Addenda Addendum by Lakhwinder Maravilla MD on 01/09/2025 9:03 PM EDT ADDENDUM: This report was discussed with Dr. Jack on Jan 09, 2025 21:02:00 EDT. This document has been electronically signed by: Felicia [facility] on 01/09/2025 21:03:09 Impressions 01/09/2025 8:57 PM EDT Impression: Unremarkable CT of the head, no acute findings. ASPECTS score 10, NORMAL This document has been electronically signed by: Lakhwinder Maravilla MD on 01/09/2025 20:57:50 Narrative 01/09/2025 8:57 PM EDT INDICATION: Neuro deficit, acute, stroke suspected CT Head Without Contrast: Comparison: None Findings: Cortical sulci are symmetric Basal ganglia are unremarkable No shift in midline structures No intraparenchymal bleeding or abnormal extra axial blood fluid collections Normal pituitary size Clear paranasal sinuses Unremarkable orbital structures No depressed fractures Procedure Note Lakhwinder Maravilla MD - 01/09/2025 INDICATION: Neuro deficit, acute, stroke suspected CT Head Without Contrast: Comparison: None Findings: Cortical sulci are symmetric Basal ganglia are unremarkable No shift in midline structures No intraparenchymal bleeding or abnormal extra axial blood fluid collections Normal pituitary size Clear paranasal sinuses Unremarkable orbital structures No depressed fractures IMPRESSION: Impression: Unremarkable CT of the head, no acute findings. ASPECTS score 10, NORMAL This document has been electronically signed by: Lakhwinder Maravilla MD on 01/09/2025 20:57:50 Trace Valenzuela MD IMG CT PROCEDURES Edited Result - Final * CT Angio Head/Neck Stroke wo and/or w Contrast (01/09/2025 8:21 PM EDT) Anatomical Region Laterality Modality Head and Neck Computed Tomogra phy 01/09/2025 10:4 4 PM EDT Impressions 01/09/2025 10:44 PM EDT Impression: Small caliber basilar artery (1.85 mm diameter) with bilateral posterior cerebral persistent circulation, a normal variant No signs of aneurysm. No stenosis No signs of arterial venous malformation. 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 Superior aorta and branch vessels are otherwise unremarkable Right carotid: No stenosis(NASCET) Right vertebral: No stenosis Left Carotid: (NASCET) Left Vertebral: No stenosis Impression: No stenosis No aneurysm or dissection This document has been electronically signed by: Lakhwinder Maravilla MD on 01/09/2025 22:44:19 Narrative 01/09/2025 10:44 PM EDT INDICATION: Neuro deficit, acute, stroke suspected CTA HEAD, bolus contrast injection. 3D reconstructions and MPRs:: Comparison: None Right Carotid Siphon: Normal Right Anterior Cerebral Artery: A1 and A2 segments are unremarkable. There is peripheral cortical enhancement. Right Middle Cerebral Artery: M1 and M2 segments are unremarkable. There is peripheral cortical enhancement. Right Posterior Cerebral Artery: Persistent circulation, P2 segments are unremarkable. There is peripheral enhancement Left Carotid Siphon: No stenosis Normal Left Anterior Cerebral Artery: A1 and A2 segments are unremarkable. There is peripheral cortical enhancement. Left Middle Cerebral Artery: M1 and M2 segments are unremarkable. There is peripheral cortical enhancement. Left Posterior Cerebral Artery: Persistent circulation, P2 segments are unremarkable]. There is peripheral cortical enhancement. Basilar Artery: The basilar artery is small caliber Venous drainage: Normal. Procedure Note Lakhwinder Maravilla MD - 01/09/2025 INDICATION: Neuro deficit, acute, stroke suspected CTA HEAD, bolus contrast injection. 3D reconstructions and MPRs:: Comparison: None Right Carotid Siphon: Normal Right Anterior Cerebral Artery: A1 and A2 segments are unremarkable.There is peripheral cortical enhancement. Right Middle Cerebral Artery: M1 and M2 segments are unremarkable. There is peripheral cortical enhancement. Right Posterior Cerebral Artery: Persistent circulation, [id number] are unremarkable. There is peripheral enhancement Left Carotid Siphon: No stenosis Normal Left Anterior Cerebral Artery: A1 and A2 segments are unremarkable.There is peripheral cortical enhancement. Left Middle Cerebral Artery: M1 and M2 segments are unremarkable. Thereis peripheral cortical enhancement. Left Posterior Cerebral Artery: Persistent circulation, [id number] are unremarkable]. There is peripheral cortical enhancement. Basilar Artery: The basilar artery is small caliber Venous drainage: Normal. IMPRESSION: Impression: Small caliber basilar artery (1.85 mm diameter) with bilateral posterior cerebral persistent circulation, a normal variant No signs of aneurysm. No stenosis No signs of arterial venous malformation. CTA Neck , Bolus contrast injection, 3D reconstructions and MPRs: Comparison: None Findings: Soft tissues of the neck are unremarkable There is aberrant right subclavian artery passing posterior to thetrachea and esophagus. Superior aorta and branch vessels are otherwise unremarkable Right carotid: No stenosis(NASCET) Right vertebral: No stenosis Left Carotid: (NASCET) Left Vertebral: No stenosis Impression: No stenosis No aneurysm or dissection This document has been electronically signed by: Lakhwinder Maravilla MD on 01/09/2025 22:44:19 Trace Valenzuela MD IMG CT PROCEDURES Final Result * Activated partial thromboplastin time (01/09/2025 8:13 PM EDT) aPTT 33.8 24.1 - 39.3 sec LAB COAGULATION METHOD 01/09/2025 9:19 PM EDT [facility] Blood Venous blood specimen / Unknown Venipuncture / Unknown 01/09/2025 8:13 PM EDT 01/09/2025 8:45 PM EDT Trace Valenzuela MD LAB BLOOD ORDERABLES Final Resu lt [facility] [address] [place] [address], [place] [phone] * Sedimentation Rate, Automated (01/09/2025 8:13 PM EDT) Sed Rate 7 0 - 30 mm/hr LAB HEMETOLOGY METHOD 01/09/2025 10:54 PM EDT [facility] Blood Venous blood specimen / Unknown Venipuncture / Unknown 01/09/2025 8:13 PM EDT 01/09/2025 8:45 PM EDT William Jack MD LAB BLOOD ORDERABLES Final Result Performing Organization Address [facility]/ZIP Co de Phone Number [facility] [address] [place] [address], [place] [phone] * Prothrombin time with INR (01/09/2025 8:13 PM EDT) [facility] Protime 11.7 10.6 - 13.9 sec LAB COAGULATION METHOD 01/09/2025 9:19 PM EDT [facility] INR 0.9 LAB COAGULATION METHOD 01/09/2025 9:19 PM EDT [facility] Blood Venous blood specimen / Unknown Venipuncture / Unknown 01/09/2025 8:13 PM EDT 01/09/2025 8:45 PM EDT Trace Valenzuela MD LAB BLOOD ORDERABLES Final Resu lt Performing Organization Address [facility]/ZIP Co de Phone Number [facility] [address] [place] [address], [place] [phone] * C-reactive protein (01/09/2025 8:13 PM EDT) [facility] C-Reactive Protein <0.29 <=0.50 mg/dL LAB CHEMISTRY METHOD 01/09/2025 10:57 PM EDT [facility] Blood Venous blood specimen / Unknown Venipuncture / Unknown 01/09/2025 8:13 PM EDT 01/09/2025 8:45 PM EDT William Jack MD LAB BLOOD ORDERABLES Final Result Performing Organization Address [facility]/ZIP Co de Phone Number [facility] [address] [place] [address], [place] [phone] * T3 (01/09/2025 8:13 PM EDT) [facility] T3, Total 88.60 60.00 - 181.00 ng/dL LAB CHEMISTRY METHOD 01/10/2025 10:48 AM EDT [facility] Blood Venous blood specimen / Unknown Venipuncture / Unknown 01/09/2025 8:13 PM EDT 01/09/2025 8:45 PM EDT us William Jack MD LAB BLOOD ORDERABLES Final Result Performing Organization Address [facility] Co de Phone Number [facility] [address] [place] [address], [place] [phone] * Thyroid Stimulating Hormone (TSH) (01/09/2025 8:13 PM EDT) [facility] TSH 2.01 0.40 - 4.00 mcIU/mL LAB CHEMISTRY METHOD 01/10/2025 10:48 AM EDT [facility] Blood Venous blood specimen / Unknown Venipuncture / Unknown 01/09/2025 8:13 PM EDT 01/09/2025 8:45 PM EDT us William Jack MD LAB BLOOD ORDERABLES Final Result Performing Organization Address [facility] de Phone Number [facility] [address] [place] [address], [place] [phone] * T4, Free (01/09/2025 8:13 PM EDT) Pathologist [facility] Free T4 1.03 0.70 - 1.80 ng/dL LAB CHEMISTRY METHOD 01/10/2025 10:47 AM EDT [facility] Blood Venous blood specimen / Unknown Venipuncture / Unknown 01/09/2025 8:13 PM EDT 01/09/2025 8:45 PM EDT us William Jack MD LAB BLOOD ORDERABLES Final Result Performing Organization Address City/[facility] Co de Phone Number [facility] [address] [place] [address], [place] [phone] * Lipase (01/09/2025 8:13 PM EDT) Pathologist [facility] Lipase 34 13 - 75 unit/L LAB CHEMISTRY METHOD 01/09/2025 10:57 PM EDT [facility] Blood Venous blood specimen / Unknown Venipuncture / Unknown 01/09/2025 8:13 PM EDT 01/09/2025 8:45 PM EDT William Jack MD LAB BLOOD ORDERABLES Final Result [facility] [address] [place] [address], [place] [phone] * Depression Screening (02/05/2024) [facility] Depression Screening Abstracted [facility] Provider HEALTH MAINTENANCE Final Result * SCR MAMMO BI INCL CAD (09/24/2018 2:15 PM EDT) Anatomical Region Laterality Modality Radiographic Kimberly ging 09/23/2018 9:34 AM EDT Narrative 09/25/2018 6:26 PM EDT This is a summary report. The complete report is available in the patient's medical record. If you cannot access the medical record, please contact the sending organization for a detailed fax or copy. Full field digital screening mammography, reviewed with CAD and compared to previous. The breasts are composed of fatty and fibroglandular tissue. No suspicious mass, architectural distortion or suspicious calcifications are identified. IMPRESSION: : No mammographic evidence of malignancy. BIRADS 1-Negative; N. 5 year breast cancer risk assessment 0.7 % Lifetime breast cancer risk assessment 7.7 % Breast cancer risk category Low (<15%) Procedure Note Volodymyr Boyd MD - 06/05/2022 This is a summary report. The complete report is available in thepatient's medical record. If you cannot access the medical record, pleasecontact the sending organization for a detailed fax or copy. Full field digital screening mammography, reviewed with CAD and comparedto previous. The breasts are composed of fatty and fibroglandular tissue.No suspicious mass, architectural distortion or suspicious calcificationsare identified. IMPRESSION: : No mammographic evidence of malignancy. BIRADS 1-Negative; N. 5 year breast cancer risk assessment 0.7 % Lifetime breast cancer risk assessment 7.7 % Breast cancer risk category Low (<15%) Wanda Alicia MD IMG XR PROCEDURES Final Res ult from Last 3 Months or Most Recently Relevant to Health Maintenance Insurance [facility] Advance Directives Documents on File Type Date Recorded Patient Medical Administrative Expl anation Health Care Decision (hx) 02/06/2021 AD BARNES DIRECTIVE Health Care Decision (hx) 02/06/2021 AD BARNES DIRECTIVE Health Care Decision (hx) 02/06/2021 AD BARNES DIRECTIVE Health Care Decision (hx) 02/06/2021 AD BARNES DIRECTIVE Health Care Decision (hx) 02/06/2021 AD BARNES DIRECTIVE Health Care Decision (hx) 02/06/2021 AD BARNES DIRECTIVE Health Care Decision (hx) 02/06/2021 AD BARNES DIRECTIVE Health Care Decision (hx) 02/06/2021 AD BARNES DIRECTIVE Health Care Decision (hx) 02/06/2021 AD BARNES DIRECTIVE Health Care Decision (hx) 02/06/2021 AD BARNES DIRECTIVE Health Care Decision (hx) 02/06/2021 AD BARNES DIRECTIVE Health Care Decision (hx) 02/06/2021 AD BARNES DIRECTIVE Health Care Decision (hx) 02/06/2021 AD BARNES DIRECTIVE Health Care Decision (hx) 02/06/2021 AD BARNES DIRECTIVE Health Care Decision (hx) 02/06/2021 AD BARNES DIRECTIVE Health Care Decision (hx) 02/06/2021 AD BARNES DIRECTIVE Health Care Decision (hx) 02/06/2021 AD BARNES DIRECTIVE Health Care Decision (hx) 02/06/2021 AD BARNES DIRECTIVE Health Care Decision (hx) 02/06/2021 AD BARNES DIRECTIVE Health Care Decision (hx) 02/06/2021 AD BARNES DIRECTIVE Health Care Decision (hx) 02/06/2021 AD BARNES DIRECTIVE Health Care Decision (hx) 02/06/2021 AD BARNES DIRECTIVE Health Care Decision (hx) 02/06/2021 AD BARNES DIRECTIVE Health Care Decision (hx) 02/06/2021 AD BARNES DIRECTIVE Health Care Decision (hx) 02/06/2021 AD BARNES DIRECTIVE Health Care Decision (hx) 02/06/2021 AD BARNES DIRECTIVE Health Care Decision (hx) 06/01/2020 AD BARNES DIRECTIVE Health Care Decision (hx) 06/01/2020 AD BARNES DIRECTIVE Health Care Decision (hx) 06/01/2020 AD BARNES DIRECTIVE Health Care Decision (hx) 06/01/2020 AD BARNES DIRECTIVE Health Care Decision (hx) 06/01/2020 AD BARNES DIRECTIVE Health Care Decision (hx) 06/01/2020 AD BARNES DIRECTIVE Health Care Decision (hx) 06/01/2020 AD BARNES DIRECTIVE Health Care Decision (hx) 06/01/2020 AD BARNES DIRECTIVE Health Care Decision (hx) 06/01/2020 AD BARNES DIRECTIVE Health Care Decision (hx) 06/01/2020 AD BARNES DIRECTIVE Health Care Decision (hx) 06/01/2020 AD BARNES DIRECTIVE Health Care Decision (hx) 06/01/2020 AD BARNES DIRECTIVE Health Care Decision (hx) 06/01/2020 AD BARNES DIRECTIVE Health Care Decision (hx) 06/01/2020 AD BARNES DIRECTIVE Health Care Decision (hx) 06/01/2020 AD BARNES DIRECTIVE Health Care Decision (hx) 06/01/2020 AD BARNES DIRECTIVE Health Care Decision (hx) 06/01/2020 AD BARNES DIRECTIVE Health Care Decision (hx) 06/01/2020 AD BARNES DIRECTIVE Health Care Decision (hx) 06/01/2020 AD BARNES DIRECTIVE Health Care Decision (hx) 06/01/2020 AD BARNES DIRECTIVE Health Care Decision (hx) 06/01/2020 AD BARNES DIRECTIVE Health Care Decision (hx) 06/01/2020 AD BARNES DIRECTIVE Health Care Decision (hx) 06/01/2020 AD BARNES DIRECTIVE Health Care Decision (hx) 06/01/2020 AD BARNES DIRECTIVE Health Care Decision (hx) 06/01/2020 AD BARNES DIRECTIVE Health Care Decision (hx) 06/01/2020 AD BARNES DIRECTIVE Health Care Decision (hx) 06/01/2020 AD BARNES DIRECTIVE Health Care Decision (hx) 06/01/2020 AD BARNES DIRECTIVE Health Care Decision (hx) 06/01/2020 AD BARNES DIRECTIVE Health Care Decision (hx) 06/01/2020 AD BARNES DIRECTIVE Health Care Decision (hx) 06/01/2020 AD BARNES DIRECTIVE Health Care Decision (hx) 06/01/2020 AD BARNES DIRECTIVE Health Care Decision (hx) 06/01/2020 AD BARNES DIRECTIVE Health Care Decision (hx) 06/01/2020 AD BARNES DIRECTIVE Health Care Decision (hx) 06/01/2020 AD BARNES DIRECTIVE Health Care Decision (hx) 06/01/2020 AD BARNES DIRECTIVE Health Care Decision (hx) 06/01/2020 AD BARNES DIRECTIVE Health Care Decision (hx) 06/01/2020 AD BARNES DIRECTIVE Health Care Decision (hx) 10/07/2017 AD BARNES DIRECTIVE Health Care Decision (hx) 10/07/2017 AD BARNES DIRECTIVE Health Care Decision (hx) 10/07/2017 AD BARNES DIRECTIVE Health Care Decision (hx) 10/07/2017 AD BARNES DIRECTIVE Health Care Decision (hx) 10/07/2017 AD BARNES DIRECTIVE Health Care Decision (hx) 09/22/2013 AD BARNES DIRECTIVE Health Care Decision (hx) 09/22/2013 AD BARNES DIRECTIVE Health Care Decision (hx) 09/22/2013 AD BARNES DIRECTIVE Health Care Decision (hx) 09/22/2013 AD BARNES DIRECTIVE Health Care Decision (hx) 09/22/2013 AD BARNES DIRECTIVE Health Care Decision (hx) 09/09/2013 AD BARNES DIRECTIVE Health Care Decision (hx) 09/09/2013 AD BARNES DIRECTIVE Health Care Decision (hx) 09/09/2013 AD BARNES DIRECTIVE Health Care Decision (hx) 09/09/2013 AD BARNES DIRECTIVE Health Care Decision (hx) 09/09/2013 AD BARNES DIRECTIVE * Full Code - Confirmed (Latest Code Status on File) Date Activated Date Inactivated Comments 01/10/2025 12:51 AM 01/13/2025 8:10 PM This code s tatus was ascertained in the following way: Code status discussion: discussion with healthcare counter sales representative To update the patient's code status, place a code status order. Do not modify or discontinue any currently active code status orders. * Full Code - Default Date Activated Date Inactivated Comments 01/10/2025 12:49 AM 01/10/2025 12:51 AM This is or christopher is used when code status has not been discussed with the patient, or code status is otherwise unknown/unconfirmed To update the patient's code status, place a code status order. Do not modify or discontinue any currently active code status orders. Care Teams Commercial Airline Pilot Relationship Specialty Start Date End Date Jacqueline Herman PA [address] [place] [address] PCP - General Internal Medicine 06/07/20
--- NOTE | 2025-02-04 08:34 | MHC.OFFVISWM ---
VS Expanded 02/04/25 08:44 BP 127/73 Blood Pressure Location Rt brachial Blood Pressure Position Sitting Pulse 65 Pulse Source Pulse Oximeter Temp 96.1 F L Temperature Source Temporal Artery Scan Pulse Oximetry 100 Oxygen Delivery Method Room Air Height 5 ft 3 in Weight 140 lb BMI 24.8 Body Fat % 24.4 Body Fat Mass 34.2 Fat Free Mass 105.8 Visceral Fat Rating 5.0 Body Water % 53.5 Body Water Mass 75.0 Muscle Mass/Score 100.6 Basal Metabolic Rate/Score 1,397 Intake Visit Reasons: (OV) PO LSG 08/06/23 Home Inspector Required: No Allergies No Known Allergies Allergy (Verified 02/04/25 08:34) Medication List - Last Reconciled 02/04/25 by JOY Calloway clotrimazole 1% (Antifungal (clotrimazole)) 1 appl topical BID lorazepam 0.5 mg PO BEDTIME PRN pramipexole mg PO DAILY ropinirole ER 2 mg PO BEDTIME HPI Comments Details: This?a?54?yo female who is s/p LSG without hiatal hernia repair on?08/06/2023. Presents for 1 year 6 month post op visit. Weight today is 140 pounds, with a BMI of 24.8. There has been a 153.2 pound weight loss,(initial weight 293.2 pounds) since starting the program on 12/03/2022 reflecting a 52.2% total body weight loss and a weight loss of 103.7 pounds since surgery (operative weight 243.7 pounds) reflecting a 42.5% TBWL since surgery. No complaints of nausea, emesis, abdominal pain or reflux. Reports infrequent but normal bowel movements every 1-2 days and uses stool softeners regularly. taking celebrate mvi, tricia +D She reports that she is having a rash under her abdominal excess skin, causing irritation pain and soreness. She also is having trouble with the excess skin of her arms causing rash and discomfort with soreness, especially with activity. She has difficulty fitting clothing and she has soreness with prolonged overhead activity such as shampooing her hair or brushing her hair. She would have to switch hands frequently to account for the discomfort. She also has excess skin of her upper thighs causing soreness and discomfort especially with activity and exercise. She also notes an odor to this area. She has been using the clotrimazole cream. She has had resolution of the rash with the cream but recurrence shortly after completion of a course. At her last visit, we added doxycycline to her topical antifungal treatment plan. This did help temporarily although she still had recurrence of rash. She is going to need medically necessary skin removal surgery. Patient also complains of pain which is difficult to describe to the medial aspect of both thighs when laying on her left side or right side. No significant pain when lying supine. Satisfied with her meal plan Present meal plan includes: premier protein 2 scoops in 8 oz water celebrate protein water, 20 gm x 2 meal is 5 forks protein and 5 forks salad/veg Drinking 32 oz additional water Exercise routine includes: plays soccer 3 days per week gym 3 days per week, weights then cardio, treadmill, bike, [employer]. Each cardiovascular activity for 30 minutes totaling 90 minutes per session. approximately 600-800 calories per session Any post op complications: none JOSE: resolved DM: never HTN: never Hyperlipidemia: never GERD:?0-5 scale ??0 = no symptoms ??1 = symptoms noticeable but not bothersome 2 =symptoms bothersome but not daily ? 3 = symptoms bothersome and daily 4 = symptoms affect daily activities 5 = symptoms are incapacitating, unable to do daily activities ? How bad is the heartburn: 0 ? Heartburn while lying down: 0 ? Heartburn when standing up: 0 ? Heartburn after meals: 0 ? Does heartburn change your diet: 0 ? Does heartburn wake you up from sleep: 0 ? Do you have difficulty swallowin ? Do you have pain with swallowin ? If you take medicine for your reflux, does this affect your daily life: 0 Satisfaction with present condition - satisfied or not satisfied: very satisfied REPLACED BY [facility] Medical History CVA (cerebral vascular accident) Basilar migraine Hemiplegic migraine Anemia Syncope Nocturnal hypoxemia Sleep apnea Right carpal tunnel syndrome Left carpal tunnel syndrome Restless leg syndrome GERD (gastroesophageal reflux disease) Depression Anxiety Radiculopathy Prediabetes Surgical History Hx of laparoscopic partial gastrectomy Hx of tonsillectomy History of carpal tunnel surgery Hx of breast reduction, elective History of bunionectomy Family History Mother Heart attack Father No problems noted. Sister Hypertension Brother No problems noted. Brother No problems noted. Daughter No problems noted. Son No problems noted. Social History Household Members: Spouse Housing: House Are you a primary direct care specialist to a significant other at home: No Do you presently have visiting nurse or other home services: No Alcohol intake: current Alcohol intake frequency: does not drink Comment: occasional Patient Tobacco Use Status: Never used Tobacco Physical Exam Const General: cooperative and no acute distress Orientation/consciousness: patient oriented x3 Resp Effort & Inspection: normal respiratory effort Auscultation: clear to auscultation bilaterally Cardio Rate: regular rate Rhythm: regular rhythm GI Inspection: Yes normal to inspection and Yes incision (well healed) Palpation (GI): Soft to palpation and no masses Skin Other: Excess skin of the arms and medial thighs. Excess skin of the abdomen, pannus grade 2/3 with evidence of erythema and irritation currently. Neuro General: patient oriented x3 Assessment & Plan Assessment & Plan (1) S/P laparoscopic sleeve gastrectomy: Code(s): Z98.84 - Bariatric surgery status Category: Surgical Plan: Patient has done very well. She has achieved a healthy weight and is living a healthy lifestyle. Reminded to get labs done that were ordered in August, they will now be 18 month postop labs. Recommend changing meal plans slightly: premier protein 1 scoop in 8 oz water celebrate protein water, 20 gm x 2 meal is 5 forks protein and 5 forks salad/veg Her protein intake as a little on the high side, but she is aggressively exercising and playing soccer multiple days per week. Continue to follow clinically. Return to clinic as scheduled. (2) Excess skin: Code(s): L98.7 - Excessive and redundant skin and subcutaneous tissue Category: Medical Plan: Given patient's greater than 150 lb weight loss or 52.2% total body weight loss, she has excess skin of her abdomen, arms and thighs. She has had recalcitrant rash treated with antifungal creams and oral antibiotics. She makes every effort to keep the area clean and dry. This has impacted her activities of daily living given excess of hygiene requirements, difficulty with clothing fitting appropriately and discomfort with overhead movements. Given her achievement of a healthy and stable weight, significant redundant skin recalcitrant to topical antifungals and oral antibiotics, she will need medically necessary skin removal surgery.
[2025-02-04 08:44] VITALS: BP 127/73; PULSE 65; TEMP 35.6; O2SAT 100; BMI 24.8
== END 2025-02-04 09:00 | disposition home or self-care (01) ==
LOC: HO.HBS 07:58
PROVIDERS: Visit Provider Physician Assistant Surgical
DX: L98.7 Excessive and redundant skin and subcutaneous tissue (principal); Z71.3 Dietary counseling and surveillance; Z90.3 Acquired absence of stomach [part of]; Z98.84 Bariatric surgery status
CPT/HCPCS: 99214; G2211

== ENCOUNTER 2025-05-24 08:28 | Outpatient (AMB) | payer OTHER, SELFPAY ==
--- NOTE | 2025-05-24 13:00 | A.OFFVIS_ITS ---
VS Expanded 05/24/25 13:04 Height 5 ft 3 in Weight 137 lb BMI 24.3 Intake Visit Reasons: TV Pre Op Panniculectomy 06/08/25 Allergies No Known Allergies Allergy (Verified 05/24/25 13:00) Medication List - Last Reconciled 05/24/25 by Blayne Garcia MD cephalexin 500 mg PO Q12H clotrimazole 1% (Antifungal (clotrimazole)) 1 appl topical BID docusate sodium (Colace) 100 mg PO DAILY lorazepam 0.5 mg PO BEDTIME PRN ondansetron 4 mg PO Q12H pramipexole mg PO DAILY ropinirole ER 2 mg PO BEDTIME HPI HPI TV Pre Op Panniculectomy 06/08/25: Details: Start time: 12.55pm, End time: 1.1pm ?I spent 15 minutes speaking with the patient on the phone plus an additional 5 minutes reviewing and updating records for a total of 20 minutes HPI Comments Details: Overall weight loss: 157.1lbs, or 53.6% TBWL Is doing 2 Premier protein shakes (2 scoops in water) and one meal (5 forks of meat and 5 forks of salad) Exercise: 5/week [facility] Medical History CVA (cerebral vascular accident) Basilar migraine Hemiplegic migraine Anemia Syncope Nocturnal hypoxemia Sleep apnea Right carpal tunnel syndrome Left carpal tunnel syndrome Restless leg syndrome GERD (gastroesophageal reflux disease) Depression Anxiety Radiculopathy Prediabetes Surgical History Hx of laparoscopic partial gastrectomy Hx of tonsillectomy History of carpal tunnel surgery Hx of breast reduction, elective History of bunionectomy Family History Mother Heart attack Father No problems noted. Sister Hypertension Brother No problems noted. Brother No problems noted. Daughter No problems noted. Son No problems noted. Social History Household Members: Spouse Housing: House Are you a primary healthcare risk control consultant to a significant other at home: No Do you presently have visiting nurse or other home services: No Alcohol intake: current Alcohol intake frequency: does not drink Comment: occasional Patient Tobacco Use Status: Never used Tobacco Telehealth Telehealth Telehealth Platform: Telephone Location of provider rendering services: practice address Location of patient: address on file Patient Identification confirmed using: Name, : Yes Telehealth method: voice only Patient verbally consented to treatment: Yes Patient verbally consented to billing insurance company: Yes Patient informed of any privacy concerns related to visit: Yes Minutes spent on Phone/Video with Pt.: 20 Assessment & Plan Assessment & Plan (1) Excess skin: Code(s): L98.7 - Excessive and redundant skin and subcutaneous tissue Category: Medical Plan: 1. Plan for panniculectomy. Risks of infection, bleeding, asymmetry, wound dehiscence and blood clots were discussed with the patient. 2. You will have a drain the abdomen that may stay a few weeks before it may be removed 3. You will need to be doing sponge baths the first 1-2 weeks. No showers. You need to have help at home to get you up and limit your activities as much as possible for at least the 4-6 weeks after surgery 4. We will arrange for a visiting nurse to come at home to help you with dressing changes and send me pictures of the procedures. We will send at your home supplies for the dressing changes. 5. Change your present nutritional plan to 2 Premier shakes (ONE AND A HALF SCOOPS each in water) and one meal (5 forks each). Please avoid salt completely starting now.? This will improve weight loss and healing after surgery. 6. Continue all your medications until the day before surgery 7. Start the Colace now and take one per day, daily. 8. Do blood work not fasting any day between Saturday03/08/25 and Saturday03/12/25 and spanish moss picker the antibiotic prescription from your pharmacy 9. Risks and complications were discussed the possibility of bleeding that may require transfusion, loss of the umbilicus, wound dehiscence or infection, dog ears , flap asymmetry. We also discussed the importance of strict avoidance of weight lifting. 10. Avoid aspirin, motrin, ibuprofen, Excedrin, Meloxicam, Aleve, Advil, Naproxyn. Only Tylenol is OK. Orders: Orders Type and Screen Today K91.2 - Postsurgical malabsorption, not elsewhere classified, Z90.3 - Acquired absence of stomach [part of] Prothrombin Time INR Today K91.2 - Postsurgical malabsorption, not elsewhere classified, Z90.3 - Acquired absence of stomach [part of] Partial Thromboplastin Time Today K91.2 - Postsurgical malabsorption, not elsewhere classified, Z90.3 - Acquired absence of stomach [part of] Complete Blood Count Auto Diff Today K91.2 - Postsurgical malabsorption, not elsewhere classified, Z90.3 - Acquired absence of stomach [part of] Comprehensive Met. Panel Today K91.2 - Postsurgical malabsorption, not elsewhere classified, Z90.3 - Acquired absence of stomach [part of] Medications: New docusate sodium (Colace) 100 mg PO DAILY 90 caps 0RF K59.00 - Constipation, unspecified cephalexin 500 mg PO Q12H 60 caps 2RF M79.3 - Panniculitis, unspecified ondansetron Only use if you have any nausea 4 mg PO Q12H 20 tabs 0RF nausea and vomiting R11.0 - Nausea
[2025-05-24 13:04] VITALS: BMI 24.3
== END 2025-05-24 13:15 | disposition home or self-care (01) ==
LOC: HO.HBS 08:28
PROVIDERS: Visit Provider Surgery
DX: L98.7 Excessive and redundant skin and subcutaneous tissue (principal)
CPT/HCPCS: 99213

== ENCOUNTER 2025-06-07 14:49 | Outpatient (REF) | payer OTHER, SELFPAY ==
[2025-06-07 17:46] LABS: Anion Gap 13 (12-20); Blood Urea Nitrogen 23 mg/dL (9-16); Calcium 9.3 mg/dL (8.4-10.2); Carbon Dioxide 29 mmol/L (22-29); Chloride 105 mmol/L (96-108); Estimated Glomerular Filt Rate > 60; Potassium 4.7 mmol/L (3.3-5.1); Sodium 142 mmol/L (135-145)
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
--- OUTSIDE RECORDS SUMMARY | 2025-06-07 18:06 | XMS_ITS | Clinical Summary ---
Author Organization [facility] Address [address] [place] [phone] Phone Care Team Providers Care Lens Mounter Name Role Phone Pcp, Not Required Primary [...] Td,Tdap Booster 12/17/2017 12/18/2007 PNEUMOCOCCAL VACCINES (50+ years) (1 of 1 - PCV) 2020 ZOSTER VACCINES (1 of 2) 2020 INFLUENZA VACCINE (#1) 2025 , 03/29/2016 COVID-19 VACCINE (2 - 2024-2 6 season) 2025 04/11/2021 RSV VACCINE (1 - 1-dose 75+ series) 2045 HIV ONE-TIME SCREENING (18-6 5 YEARS) Completed [...] topic Medical Devices Not on file Insurance [employer] [address] [place], [place] [address] [address] [place] [address] [address] [place] [address] [address] [place] [address] [address] [place] [address] [facility] [employer] [facility] [employer] Care Teams Lens Mounter Relationship Specialty Start Date End Date Pcp, Not Required PCP - General 11/23/20 Additional Source Comments The information contained in this document represents components of the legal health record. It is not the complete legal health record.[facility]
--- OUTSIDE RECORDS SUMMARY | 2025-06-07 18:06 | XMS_ITS | Clinical Summary ---
Author Organization [facility] Prior to 11/14/24 Address [address] [place] [address] Care Team Providers Care Methodologist Name Role Phone Wanda Alicia MD Primary Care Provider [phone] Allergies No known active allergies Medications Medication [...] age to complete this topic Care Teams Methodologist Relationship Specialty Start Date End Date Wanda Alicia MD PCP - General Internal Medicine 03/31/19
== END 2025-06-07 14:50 | disposition home or self-care (01) ==
LOC: HO.LAB 14:49
PROVIDERS: PCP Physician Assistant; Visit Provider Surgery
DX: E87.5 Hyperkalemia (principal)
CPT/HCPCS: 36415; 80048

== ENCOUNTER 2025-06-09 05:47 | Day surgery (SDC) | payer OTHER, SELFPAY ==
[2025-05-26 09:25] VITALS: BMI 23.6
[2025-05-27 16:31] LABS: MANUAL DIFF FLAG NO
[2025-05-27 18:24] LABS: INTERNATIONAL NORM RATIO 0.9 (0.9-1.1); Prothrombin Time 11.1 SEC (11.2-13.5)
[2025-05-27 18:27] LABS: Partial Thromboplastin Time 29.7 SEC (26.7-34.1)
[2025-05-27 18:28] LABS: Hematocrit 39.7 % (37.0-47.0); Hemoglobin 11.6 g/dl (12.0-16.0); Imm Gran Abs Auto 0.01 X10*3/uL (0.00-0.03); Imm Gran Pct Auto 0.2 % (0.0-0.4); Lymphocytes Absolute Auto 2.8 X10*3/uL (1.2-4.9); Mean Corpuscular HGB Conc 29.2 g/dl (31.0-35.0); Mean Corpuscular Hemoglobin 18.8 pg (27.0-33.0); NRBC Abs Auto 0.000 X10*3/uL (0.0-0.012); NRBC Pct Auto 0.0 /100WBC (0.0-0.2); Platelet Count 256 X10*3/uL (160-400); Red Blood Count 6.16 X10*6/uL (4.20-5.50); White Blood Count 6.1 X10*3/uL (4.8-10.8)
[2025-05-27 18:36] LABS: Alanine Aminotransferase 17 U/L (0-31); Albumin Level 4.6 g/dL (3.5-5.0); Alkaline Phosphatase 70 U/L (39-117); Anion Gap 13 (12-20); Aspartate Amino Transferase 22 U/L (5-31); Blood Urea Nitrogen 25 mg/dL (9-16); Calcium 9.4 mg/dL (8.4-10.2); Carbon Dioxide 27 mmol/L (22-29); Chloride 108 mmol/L (96-108); Creatinine Clr Calc Pharmacy 82.6; Estimated Glomerular Filt Rate > 60; Potassium 5.5 mmol/L (3.3-5.1); Sodium 142 mmol/L (135-145); Total Protein 7.1 g/dL (6.5-8.0)
[2025-05-27 19:01] LABS: Mean Corpuscular Volume 64.4 fL (80.0-98.0)
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
[2025-06-09] VITALS (20 sets, daily range): BP systolic 96–119; BP diastolic 51–79; PULSE 79–106; RESP 10–20; TEMP 36.1–36.6; O2SAT 94–100; BMI 24.5
--- NOTE | ~2025-06-09 | CT_ITS ---
EXAMINATION: CT HEAD WITHOUT THEN WITH IV CONTRAST HISTORY: stroke. TECHNIQUE: Helical CT of the head was performed before and after the intravenous administration of 16 mm Omnipaque 350 per standard departmental protocol. Coronal and sagittal reformats of the head were also evaluated. One or more of the following techniques was used for dose reduction: Automated exposure control, adjustment of the mA and/or kV according to patient size, use of iterative reconstruction technique. DLP: 1729 mGy-cm COMPARISON: There are no prior studies available for comparison. FINDINGS: BRAIN: The brain parenchyma is unremarkable. There is normal york/white differentiation. The ventricular system is normal in size and configuration. There is no mass effect or midline shift. No intra- or extra-axial fluid collections are identified. There is no abnormal contrast enhancement. SINUSES: The visualized paranasal sinuses are clear. The mastoid air cells and middle ear cavities are well pneumatized. ORBITS: The visualized orbits are unremarkable. BONES/SOFT TISSUES: The extracranial soft tissues are unremarkable. The calvarium is intact. No suspicious lytic or sclerotic lesions. CT/CT head/brain wo/w IV con IMPRESSION: Unremarkable head CT without and with contrast. Electronically signed by: Favian Lynn MD 06/09/2025 01:59 PM [facility]
[2025-06-09] MEDS: Lactated Ringers 1,000 ML 100 ML IVCONT (06:32)
[2025-06-09] MEDS: Aprepitant 32 MG/4.4 ML VIAL IVPUSH (06:33)
--- NOTE | 2025-06-09 07:37 | MHC.SHP ---
Pre-Procedural Eval Section A - 24 Hr Update-Section A only Date of Service: 06/09/25 The patient is an INPATIENT: No The patient has been examined within 24 hours of the surgical procedure. The History & Physical has been completed within 30 days and I have reviewed it.: Yes Section B - Complete if H&P > 30 days Chief Complaint: Incisional hernia w/o obstruction,excessive skin Relevant Family History (Specify if Yes): No Relevant Social History: None Present Medications: None Medical History: No relevant PMH History of Previous Operations: Relevant previous surgery/procedure and date(s) (laparoscopic sleeve gastrectomy) Allergies: Allergies Allergy/AdvReac Type Severity Reaction Status Date / Time No Known Allergies Allergy Verified 06/09/25 06:08 Review of Systems Sugical H&P ROS: Negative: Constitution, Cardiovascular, Respiratory, Neurological, Psychiatric, Hem-Onc, Allergic/Immunologic, Gastrointestinal, Genitourinary, Musculoskeletal, Integumentary, Endocrine and Eyes/Ears/Nose/Throat Exam Surgical H&P Exam: Normal: HEENT, Normal: Heart, Normal: Lungs, Normal: Extremities, Normal: Abdomen, Normal: Skin and Normal: Neurological Plan Diagnosis/Plan: Unchanged I have reviewed the history and physical and performed a pertinent physical examination on my patient. No changes have occurred unless specified. Time Spent With Patient Time: Total time managing care of this patient today ____ minutes.
--- NOTE | 2025-06-09 07:57 | PM.OP ---
Brief Operative Note Date of Service: 06/09/25 Procedure: PROCEDURE: Panniculectomy with umbilical transposition and bilateral subcutaneous fat flaps INDICATION: This a 54 year old female who underwent laparoscopic sleeve gastrectomy on 08/06/2023. She had an excellent result achieving a BMI of 25,7 kg/m2 with a total weight loss of 148.3lbs, or 50.6% of her TBWL. As a result, she has developed panniculitis which has not resolved despite continuous use of clotrimazole ointment as well as skin irritation. On exam she has extreme skin laxity due to massive weight loss, with the abdominal pannus completely hanging 4cm below the pubis. Panniculectomy was recommended. We discussed the two options for the panniculectomy of using a combined vertical and horizontal incisions or just a horizontal (bikini) incision. It was my recommendation to do only horizontal incision based on her body habitus and skin laxity. The patient agreed with this. Risks and complications were discussed with the patient including bleeding, infection, umbilical loss, flap necrosis, asymmetry, dehiscence, seroma, VTE. The patient understood the risks and was in agreement to proceed with surgery. PROCEDURE: The incisions were appropriately marked at the preop area with the patient standing and laying down. After induction of general anesthesia a Machado catheter and pneumatic compression devices were placed. The patient was prepped and draped in the usual sterile manner and the incisions were marked again and confirmed. The skin was infiltrated with lidocaine and epinephrine. The #10 blade scalpel was used for the large incisions and the #15 blade scalpel for the umbilicus. Cautery was used to divide the subcutaneous tissues until the fascia was identified. Then I used the cautery to separate the pannus from the fascia. The inferior incision was made initially and I mobilized the flap for a several centimeters cephalad to the umbilicus. The umbilicus was incised circumferentially and detached from the surrounding tissues all the way to the fascia while its stalk was preserved. With the patient in reflex position I confirmed that the skin flaps were appropriate and would allow for the tissues to come together with reasonable tension. At that point a horizontal incision was made 4 cm above the umbilicus. #10 blade was used for the skin, cautery for the dermis and for the remaining tissues. A subcutaneous fat flap was raised from the upper skin flap in order to fill the space under the skin and support the closure of the two flaps. In addition the inferior flap was mobilized caudally for a few centimeters to create a space for the subcutaneous fat flap as well as relieve tension from the closure. A circumferential incision was made at the area where the umbilicus would be re-implanted. The umbilicus was appropriately oriented and was delivered through the defect and was secured in place with a Fountain. No bleeding was noted anywhere. One REX drain was placed from the left corner of the horizontal incision across the wound and was secured in place with a silk suture. The subcutaneous fat flap was secured under the inferior flap with several interrupted 3.0 Monocryl sutures. The two flaps were brought together and were attached at the midline of the horizontal incision with a #3.0 Monocryl suture. At that point the umbilicus was properly oriented and was re-approximated to the skin with 8 interrupted 3.0 Monocryl sutures. In a similar fashion the skin flaps were re-approximated with multiple 3.0 Monocryl sutures. The skin was closed in all incisions and umbilicus with 4.0 Monocryl sutures. Steri-strips, xeroform gauzes and gauzes were used to cover the incisions. An abdominal binder was also placed. The was awaken and was transferred to the recover room in a stable condition. I was present and performed the entire procedure. Lindsay Cash was the patient observation assistant. Vin Garcia MD, PhD, FACS Surgeon: Blayne Garcia MD Anesthesia: GETA and local Was an Prefabricated Houses Trimmer used for this Procedure?: Yes Prefabricated Houses Trimmer: Brigette Cash Estimated blood loss (mL): 10 IV fluids (mL): 1,250 Urine output (mL): 0 (No Machado to record output) Pathology: other (abdominal pannus) Condition: stable Disposition: PACU
[2025-06-09] MEDS: oxyCODONE HCl Immed Release 5 MG TABLET PO (12:21)
--- NOTE | 2025-06-09 12:34 | W.MHC.F2F ---
Service Date Service Date: 06/09/25 Encounter Date of encounter: 06/09/25 Reasons for Services Signs and symptoms assessed: s/p panniculectomy with drain placement Reason for penitentiary: wound care Homebound: Leaving the home is medically contraindicated at this time without the asist of a device and/or another person due th the listed conditions above and below. Reason homebound: unable to drive Certification: Based on the above findings, I certify that this patient is confined to the home and needs intermittent penitentiary care, physical therapy and/or speech therapy, or continues to need occupational therapy. The patient is under my care, and I have initiated the establishment of the plan of care. The patient will be followed by a physician who will periodically review the plan of care. Time Spent With Patient Time: Total time managing care of this patient today __30__ minutes.
[2025-06-09] MEDS: iohexoL 350 MG/ML 100 ML INFUS..BTL IV (13:47)
== END 2025-06-09 14:59 | disposition home or self-care (01) ==
PROVIDERS: PCP Physician Assistant; Visit Provider Surgery
PROC: 0JB80ZZ Excision of Abdomen Subcutaneous Tissue and Fascia, Open Approach (ICD-10-PCS; CPT 15830; principal; 2025-06-09 07:30)
DX: L98.7 Excessive and redundant skin and subcutaneous tissue (principal); K91.2 Postsurgical malabsorption, not elsewhere classified; M79.3 Panniculitis, unspecified; K43.2 Incisional hernia without obstruction or gangrene; E65 Localized adiposity; K21.9 Gastro-esophageal reflux disease without esophagitis; D64.9 Anemia, unspecified; E87.5 Hyperkalemia; R73.03 Prediabetes; Z90.3 Acquired absence of stomach [part of]; Z86.73 Personal history of transient ischemic attack (TIA), and cerebral infarction without residual deficits; G43.109 Migraine with aura, not intractable, without status migrainosus; G43.409 Hemiplegic migraine, not intractable, without status migrainosus; M54.10 Radiculopathy, site unspecified; F32.A Depression, unspecified; F41.9 Anxiety disorder, unspecified; Z79.899 Other long term (current) drug therapy; Z98.84 Bariatric surgery status; Z98.890 Other specified postprocedural states
CPT/HCPCS: 15830; 15847; 36415; 70470; 80053; 85025; 85610; 85730; 86850; 86900; 86901; 88304; 88305; C9145; J0131; J0461; J0690; J1100; J1171; J1596; J1885; J2003; J2004; J2250; J2371; J2405; J2704; J3010; J3030; J3374

== ENCOUNTER → 2025-06-09 05:47 | Outpatient (BNV) | payer OTHER, SELFPAY | PROVIDERS: PCP Physician Assistant; Visit Provider Surgery | DX: M79.3 Panniculitis, unspecified (principal); L98.7 Excessive and redundant skin and subcutaneous tissue | CPT/HCPCS: 15830; G0180 ==

== ENCOUNTER → 2025-06-09 12:59 | Outpatient (BNV) | payer OTHER, SELFPAY | PROVIDERS: PCP Physician Assistant; Visit Provider Radiology Diagnostic Radiology | DX: I63.9 Cerebral infarction, unspecified (principal) | CPT/HCPCS: 70470 ==

== ENCOUNTER 2025-06-14 10:56 | Outpatient (AMB) | payer OTHER, SELFPAY ==
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
[2025-06-14 11:22] VITALS: BP 119/68; PULSE 90; TEMP 36.6; O2SAT 95
--- OUTSIDE RECORDS SUMMARY | 2025-06-14 12:40 | XMS_ITS | Clinical Summary ---
Author Organization [facility] Address [address] [place] [id number] Phone Care Team Providers Care Biochemistry Professor Name Role Phone Pcp, Not Required Primary [...] Not on file Insurance [employer] [address] [place] [address] [place] [employer] [address] [place] [address] [address] [place] [address] [address] [place] [address] [address] [place] [address] [facility] [employer] [facility] [employer] Care Teams Biochemistry Professor Relationship Specialty Start Date End Date Pcp, Not Required PCP - General 11/23/20 Additional Source Comments The information contained in this document represents components of the legal health record. It is not the complete legal health record.[facility]
--- OUTSIDE RECORDS SUMMARY | 2025-06-14 12:40 | XMS_ITS | Clinical Summary ---
Author Organization [facility] Address [address] [place] [address] Phone Care Team Providers Care Statuary Painter Name Role Phone Jacqueline Herman Primary Care [...] 07/03/2021 Obstructive sleep apnea 07/03/2021 Overview (04/28/2024): [facility] Home sleep test 06/29/2021; weight 265, [...] to be due to migraine (admitted to [facility]) and again 02/22/16 at [facility] w neg CTA's Iron deficiency anemia 12/18/2007 Migraine without aura 06/04/2005 Overview (04/28/2024): IMO update Encounters Date Type Department Care Team Description 03/16/2025 3:15 PM EDT Office Visit Internal Medicine - [address] [place] [address] Jacqueline Herman PA Hemiplegic migraine without status migrainosus, [...] 5 PROCEDURE: HISTORICAL TONSILLECTOMY BREAST REDUCTION PROCEDURE: LA BREAST REDUCTION; COMMENT: 2012 CARPAL TUNNEL RELEASE 12/25/2021 Left PROCEDURE: HISTORICAL CARPAL TUNNEL REL; COMMENT: Dr. 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 Not on file Not on [...] PM EDT Office Visit Internal Medicine - [place] [address] [place] [address] Jacqueline Herman PA [address] [place] [address] Health Maintenance Due Date Last Done Comments [...] DIRECT LDL Routine 01/10/2025 6:43 AM EDT DEPRESSION SCREENING Routine 02/05/2024 SCR MAMMO BI INCL CAD Routine 09/24/2018 2:15 PM EDT Encounter for screening mammogram for malignant neoplasm of breast from Last 3 Months or Most Recently Relevant to Health Maintenance Results * Lipid panel with reflex to direct LDL (01/10/2025 6:43 AM EDT) Cholesterol 140 0 - 200 mg/dL LAB CHEMISTRY METHOD 01/10/2025 7:41 AM [facility] Triglycerides 65 0 - 150 mg/dL LAB CHEMISTRY METHOD 01/10/2025 7:41 AM [facility] HDL 44 >=40 mg/dL LAB CHEMISTRY METHOD 01/10/2025 7:41 AM [facility] LDL Calculated 83 0 - 100 mg/dL LAB CHEMISTRY METHOD 01/10/2025 7:41 AM [facility] VLDL Cholesterol Mike 13 mg/dL LAB CHEMISTRY METHOD 01/10/2025 7:41 AM [facility] Non HDL Chol. (LDL+VLDL) 96 <145 mg/dL LAB CHEMISTRY METHOD 01/10/2025 7:41 AM [facility] Chol/HDL Ratio 3.2 0.0 - 4.4 LAB CHEMISTRY METHOD 01/10/2025 7:41 AM EDT [facility] Blood Venous blood specimen / Unknown Venipuncture / Unknown 01/10/2025 6:43 AM EDT 01/10/2025 6:51 AM EDT Joelle HAMILTON LAB BLOOD ORDERABLES Final R esult [facility]) [facility] [address] [place] [address], * Depression Screening (02/05/2024) Depression Screening Abstracted [...] Relevant to Health Maintenance Insurance [facility] Advance Directives Documents on File Type Date Recorded 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 Care Teams Statuary Painter Relationship Specialty Start Date End Date Jacqueline Herman PA [address] [place] [address] PCP - General Internal Medicine 06/07/20
--- OUTSIDE RECORDS SUMMARY | 2025-06-14 12:40 | XMS_ITS | Clinical Summary ---
Author Organization [facility] Prior to 11/14/24 Address [address] [place] [address] Care Team Providers Care Drafter Seismograph Name Role Phone Wanda Alicia MD Primary Care Provider [phone] Allergies No known active allergies Medications Medication [...] age to complete this topic Care Teams Drafter Seismograph Relationship Specialty Start Date End Date Wanda Alicia MD PCP - General Internal Medicine 03/31/19
== END 2025-06-14 11:48 | disposition home or self-care (01) ==
LOC: HO.HBS 10:56
PROVIDERS: PCP Physician Assistant; Visit Provider Nurse Practitioner
DX: Z71.3 Dietary counseling and surveillance (principal); Z98.890 Other specified postprocedural states
CPT/HCPCS: 99024